=== PATIENT | female | born 1990 | race Caucasian/White ===

== ENCOUNTER → 2017-10-03 13:10 | Outpatient (CLI) | payer OTHER, SELFPAY ==
--- NOTE | 2017-10-03 13:14 | RAD_ITS ---
STUDY: X-RAY - LEFT KNEE REASON FOR EXAM: Female, 27 years old. History patellar dislocation TECHNIQUE: 4 view(s) of the knee. COMPARISON: None. FINDINGS: Normal visualized distal femur. Normal visualized proximal tibia and fibula. Normal proximal tibiofibular articulation. Normal medial femorotibial compartment. Normal lateral femorotibial compartment. Normal patellofemoral articulation. The soft tissue structures are unremarkable. RAD/Knee 4 or More Views IMPRESSION: No fracture or dislocation. Electronically Signed: Jose Page DO at 20:13 EDT , Service support ,
== END ==
PROVIDERS: Family Provider Nurse Practitioner Family; PCP Nurse Practitioner Family; Visit Provider Orthopaedic Surgery
DX: M25.562 Pain in left knee (principal)
CPT/HCPCS: 73564

== ENCOUNTER 2017-10-11 07:18 | Day surgery (SDC) | payer MEDICAID, SELFPAY ==
[2017-10-11] VITALS (8 sets, daily range): BP systolic 109–139; BP diastolic 65–85; PULSE 73–95; RESP 16–18; TEMP 36–36.4; O2SAT 93–100; BMI 44.6
--- NOTE | 2017-10-11 06:58 | RAD_ITS ---
STUDY: X-RAY - LEFT KNEE REASON FOR EXAM: Female, 27 years old. Arthroscopy. TECHNIQUE: AP and lateral view(s) of the knee. COMPARISON: Comparison is made with prior study dated October 03, 2017. FINDINGS: Normal visualized distal femur. Normal visualized proximal tibia and fibula. Normal proximal tibiofibular articulation. Normal medial femorotibial compartment. Normal lateral femorotibial compartment. Normal patellofemoral articulation. Soft tissue emphysema overlying the medial distal femur. RAD/Knee 1 or 2 Views IMPRESSION: Soft tissue emphysema overlying the medial aspect of the distal femur. Electronically Signed: Alex Motta MD at 15:31 EDT Tel [phone], Service support ,
[2017-10-11 07:47] LABS: Internal QC Validated? YES +Cl - CLEAR BKGD; Pregnancy, Urine Negative Negative
[2017-10-11] MEDS: Cefazolin 2 GM in 0.9% Normal Saline 100 ML IV (10:10)
--- NOTE | 2017-10-11 11:33 | PCM.IMDPSTOP ---
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
--- NOTE | 2017-10-11 11:44 | OP.PCM_ITS ---
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 Noted to my clinic with again recurrent patella instability. MRI should the patient have chondromalacia patella some mild patella jacek no obvious patella trochlear dysplasia with sunrise view of the kneecap however the patient had positive apprehension and relocation of the patella maneuvers. Her TT/TTG was measured at 8 mm. This was well within normal limits. Patient was counseled consented for a left knee arthroscopy a medial patellofemoral ligament reconstruction with possible open tibial tubercle osteotomy or any indicated procedure. Patient was met in the holding area with a left lower extremity was marked and identified by the with surgeon. Patient was taken the operating room in satisfactory condition with somewhat to place to identify patient operative procedure and limb. Patient received 2 g Ancef. Patient a well-placed tourniquet left proximal thigh. She was then prepped and draped in usual fashion. Left lower extremity was elevated Esmarch used for exsanguination and tourniquet was increased to 250 mmHg for roughly 75 minutes. During the knee arthroscopy a posterior tibialis allograft was repaired to the back table with split limbs in anticipation of placement into the patella and an 8 mm overall distal diameter using the Arthrex MPFL system. Was done using standard technique and placed in longitudinal traction during the remaining portion of the procedure. Left lower extremity was elevated Esmarch used for exsanguination and tourniquet was increased to 250 mmHg for roughly 75 minutes. Anterolateral portal was established and we entered into the suprasellar pouch. Patient had no return of an effusion. Patient did have some small chondral flakes floating around the knee globally but no large loose bodies were identified. He can be seen the patient had lateral overhang of the patella and full extension. She showed grade III chondromalacia to the central ridge and medial patellar facets with changes proximally. However the lateral patellar facet and central ridge lateral half were pristine. Patient had no chondromalacia to the trochlea. Patient had no loose bodies the to the posterior lateral corner. The popliteal hiatus was normal. We then moved in the medial compartment established anteromedial portal. Anterior synovectomy was undertaken for better visualization. Medial compartment showed the cartilage be pristine. She had no meniscal pathology upon probing. The patient showed a normal flanked sign to the meniscus as well. ACL and PCL were pristine and under anatomic tension. Patient's leg was then placed in the figure 4 position. Patient had a large fissure into the lateral tibial plateau that was probably 3 mm in overall thickness however the remaining cartilage bed was intact. The patient had no signs of a lateral meniscal pathology. The popliteus was normal. Patient showed no chondromalacia to the lateral femoral condyle. At that point time I elected to perform a lateral release using the vapor cautery device moving from the insertional site of the vastus lateralis down distally to roughly near the anterolateral portal. This was done using standard technique with caution not to burn the skin. Patient had improved patella mobility at that point time. At that point the scope was retracted we turned our attention to the open portion the procedure. Patient had a 2-1/2 cm incision made along the medial border of the patella with sharp dissection down to soft tissues Bovie cautery 20 bleeding. Subperiosteal dissection was undertaken with the capsular reflection being protected. Then using C-arm visualization in the AP and lateral planes we placed to K wires in parallel fashion using standard technique within the proximal one third middle distal third of the patella. Overall tunnel lengths roughly 25 mm measuring 4.5 mm in overall diameter. At that point time the graft had been prepared and brought from the back table. Each limb of the split posterior tibialis was then dunked into its respective tunnel and fixed with a 4.75 bio composite Arthrex swivel lock using standard technique. We had excellent compression and good stability with manual medialization of the patella. At that point time we then undermined and moving along the capsule down to the anatomic insertion site of the medial patellofemoral ligament. Using C-arm visualization the lateral plane with the knee and roughly 30? of knee flexion the radiographic marker was used in order to identify the anatomic insertion site using a perfect lateral technique. At that point time the guidewire was passed percutaneously through the skin found to be in good anatomic position. We then made a 2 cm incision longitudinally and dissected down to the medial upper condyle of the the knee using standard technique. We then connected the 2 incision sites and undermining technique to allow for passage of the graft. The guidewire was passed all the way across the condyle in anticipation of a a pull-through technique. We then overreamed with an 8.5 mm reamer and then dunked the remaining portion of the posterior tibialis into the tunnel over a Nitinol guidewire with a 9 mm x 23 mm bio composite screw again from Arthrex. During this time. Of fixation the patella was centralized wide again was in roughly 30-45? of knee flexion and then fixed accordingly. Upon completion of our fixation since patella was well centralized. At 30? knee flexion she had one compartment translation laterally. She did not feel over constrained. In full extension the patient also maintained a 1-1.5 mm lateral compartment translation. We then placed the scope back into the knee joint from the lateral portal to visualize in the knee with in 30? knee flexion again it was anatomic and overall positioning. We then copiously irrigated the wounds closed in a layer technique the portal sites were closed with 4-0 nylon using simple suture technique. The medial incisions for the ligament reconstruction were closed with 3-0 Vicryl and running subicular Monocryl. Patient was then dressed in the usual fashion with Xeroform 4 x 4's Kerlix roll ABD Rui wrap. Tourniquet let down during final closure. I was scrubbed and available time during our procedure. We had no drains or complications. Implants included 2 4.75 mm swivel locks from Arthrex and one 9 x 23 mm bio composite interference screw again from Arthrex. Patient will follow the NPFL protocol. Any major issues please contact me. travel accommodations rater: David Irwin Type of Anesthesia:: General Specimen's removed: None Estimated Blood Loss (mL): 20 Grafts/Implants Used: Posterior tibialis allograft, 2 4.75 mm swivel locks from Arthrex, 1 9 x 23 - Complications None - Admit VTE Documentation VTE Present on Admission: No VTE Mechan Device Prophylaxis: SCD's, Knee High KITA Hose VTE Pharm Prophylaxis ordered?: Yes
--- NOTE | 2017-10-11 11:45 | PCM.DC.ORTHO ---
Discharge Activity: Return to Normal Activity, May not drive while taking narcotic pain medications., May Shower, Use Crutches May shower in (days): 2 May resume sexual activity in: 8 weeks Ice area for (Minutes): 20 Weight Bearing Status: Weight bearing as tolerated, - - Weightbearing as tolerated in full extension. Keep extremity elevated above heart level: Left Leg Additional Activity Instructions:: Perform straight leg raises in brace. Perform quad sets in brace. May been needs a 30? 3 times per day only ?2 weeks. We will advance accordingly. Brace 24 7 except for shower. Call your doctor if your incision/area has: Continuous Slow Oozing, Sudden Increased Bleeding, Increased Pain/ Swelling, Increased Redness, Foul Smelling Discharge, Swelling at the incision site Call your doctor if you observe: Fever of 101 or Higher, Coldness, Increased Pain, Numbness or Tingling, Change in Color, Inability to urinate, Inability to have a bowel movement, Using more than one pad per hour, Shortness of breath, Dizziness, Fainting spells, Swelling in the ankles, Chest pain, Prolonged hiccoughing, Increased palpitations (irregular heartbeat), Calf discomfort, Uncontrolled pain Suture Line Care: Avoid Pulling/Pushing, Avoid Pinching/Bending Change Dressing in (Days):: 2 Remove Dressing in (days):: 2 Cleanse incision/area with: Soap & Water Allergies/Adverse Reactions: Allergies No Known Allergies Allergy (Unverified 10/10/17 14:53) Medications to take at Discharge acetaminophen 325 mg capsule 325 mg PO Q6H PRN 10/03/17 ibuprofen 200 mg capsule 200 mg PO TID-QID PRN 10/03/17 Cephalexin [Keflex] 500 mg PO Q12 #10 cap 10/11/17 Docusate Sodium [Colace] 100 mg PO BID PRN PRN #10 cap 10/11/17 Oxycodone HCl/Acetaminophen [Percocet 5/325] 1 - 2 tablet PO Q4H PRN PRN #60 tablet 10/11/17 proMETHazine tablet [Phenergan] 25 mg PO Q4H PRN PRN #10 tab 10/11/17 The following prescriptions were given: Oxycodone HCl/Acetaminophen [Percocet 5/325] 1 - 2 tablet PO Q4H PRN PRN #60 tablet PRN Reason: Pain proMETHazine tablet [Phenergan] 25 mg PO Q4H PRN PRN #10 tab PRN Reason: Nausea Cephalexin [Keflex] 500 mg PO Q12 #10 cap Docusate Sodium [Colace] 100 mg PO BID PRN PRN #10 cap PRN Reason: Constipation Primary Care Physician: Maruim Townsend NP-C [Primary Care Provider] - Please Follow Up With: Ranjan Hastings DO When: call [facility] for appt for 2 weeks Proposed Discharge Date: 10/11/17
[2017-10-11] MEDS: Ondansetron 4 MG/2 ML Vial IV (13:03)
[2017-10-11] MEDS: HYDROcodone Bitartrate/Apap 5/325 Tablet PO (14:19)
== END 2017-10-11 15:18 | disposition home or self-care (01) ==
LOC: SDC 07:19 → AC 07:20
PROVIDERS: Anesthesiology; Family Provider Nurse Practitioner Family; PCP Nurse Practitioner Family; Visit Provider Orthopaedic Surgery
PROC: (CPT 27427; principal; 2017-10-11 09:05)
DX: M22.02 Recurrent dislocation of patella, left knee (principal); M94.262 Chondromalacia, left knee; G89.29 Other chronic pain
CPT/HCPCS: 27427; 29873; 73560; 76000; 81025; J7120; J2405

== ENCOUNTER → 2018-02-23 09:19 | Outpatient (CLI) | payer MEDICAID, SELFPAY ==
--- NOTE | 2018-02-23 09:21 | RAD_ITS ---
STUDY: X-RAY - LEFT KNEE REASON FOR EXAM: Female, 27 years old. History of NPFL surgery several weeks ago, knee locked up. TECHNIQUE: 4 view(s) of the knee. COMPARISON: 10/11/2017. 10/03/2017. FINDINGS: Transverse osseous tunnel medial femoral condyle and superior and mid patella without change. Tiny spur along the medial femoral notch. Normal visualized proximal tibia and fibula. Normal proximal tibiofibular articulation. Normal medial femorotibial compartment. Normal lateral femorotibial compartment. Normal patellofemoral articulation. There is no demonstrated joint effusion. Stable cortical irregularity medial patella pole. The soft tissue structures are unremarkable. RAD/Knee 4 or More Views IMPRESSION: Postsurgical changes. No effusion. Electronically Signed: Mary Basilio MD at 5:26 EDT , Service support ,
== END ==
PROVIDERS: Family Provider Nurse Practitioner Family; PCP Nurse Practitioner Family; Referring Provider Physician Assistant; Visit Provider Physician Assistant
DX: M25.562 Pain in left knee (principal)
CPT/HCPCS: 73564

== ENCOUNTER → 2018-09-01 09:26 | Outpatient (CLI) | payer MEDICAID, SELFPAY ==
[2018-09-01 11:21] LABS: Follicle Stimulating Hormone 6.2 mIU/mL; Glucose 86 mg/dL (74-106); Luteinizing Hormone 3.7 mIU/mL; Prolactin 8.2 ng/mL
[2018-09-01 11:37] LABS: Hemoglobin A1c 6.2 % (4.2-6.3)
== END ==
PROVIDERS: Visit Provider Obstetrics & Gynecology
DX: N92.0 Excessive and frequent menstruation with regular cycle (principal); N94.4 Primary dysmenorrhea
CPT/HCPCS: 36415; 82947; 83001; 83002; 83036; 84146

== ENCOUNTER 2019-03-16 21:16 | Emergency (ER) | payer OTHER, SELFPAY ==
[2019-03-16 21:17] VITALS: BP 125/81; PULSE 89; RESP 14; TEMP 37.2; O2SAT 95; BMI 40.7
--- NOTE | 2019-03-16 21:20 | RAD_ITS ---
STUDY: X-RAY - LEFT KNEE REASON FOR EXAM: Female, 28 years old. Patellar pain TECHNIQUE: 4 view(s) of the knee. COMPARISON: Prior study of 02/23/2018 FINDINGS: Normal visualized distal femur. Normal visualized proximal tibia and fibula. Normal proximal tibiofibular articulation. There is mild degenerative arthrosis of the medial femorotibial compartment. There is mild degenerative arthrosis of the lateral femorotibial compartment. Normal patellofemoral articulation. The soft tissue structures are unremarkable. RAD/Knee 4 or More Views IMPRESSION: Mild degenerative changes of the medial and lateral knee compartments. Electronically Signed: Jose Holman MD at 22:04 EDT , Service support ,
--- NOTE | 2019-03-16 23:19 | ED.DCSUM_ITS ---
History of Present Illness Chief Complaint: Lower Extremity Injury Detail of Chief Complaint: Left knee pain Informant: Patient Onset: Days Context: Gradual Onset Timing: Waxes and wanes Current Severity: Moderate Maximum Severity: Severe Narrative: Patient has a history of left patellar dislocations. She had knee surgery a couple years ago with Dr. Hastings. Patient states that over the past 3 days her left patella has dislocated 2 additional times. She now has grinding pain under her patella with pain shooting down her leg. She could not find her straight leg brace. She does have crutches at home that she can use. She has an appointment to see orthopedics next week. Past Medical History - Allergies and Home Meds Allergies/Adverse Reactions: Allergies No Known Allergies Allergy (Verified 03/16/19 21:17) Primary Care Physician: Marium Townsend NP-C [Primary Care Provider] - Prior records reviewed: Yes Past Medical History: - - Reviewed Lives: Spouse/ Significant Other Smoking Status: Never smoker Review of Systems General: Denies: Chills, Fever Eyes: Denies: Visual changes - bilaterally ENT: Denies: Bilateral ear pain Cardiovascular: Denies: Chest pain Respiratory: Denies: Dyspnea Gastrointestinal: Denies: Abdominal pain Musculoskeletal: Reports: Extremity Pain Skin: Denies: Rash Neurological: Denies: Headache, Weakness, Parasthesia Hematologic: Denies: Easy bruising Allergy: Denies: Uticaria Physical Exam Vital Signs/Narrative: Vital Signs Temp Pulse Resp BP Pulse Ox 03/16/19 21:17 98.9 F 89 14 125/81 H 95 Inital Vital Signs reviewed: Yes General: Well nourished, Well developed Head: Normocephalic ENT: Moist mucous membranes Neck: Supple Cardiovascular: Regular rate, Regular rhythm Respiratory: No distress, CTA bilaterally Abdomen: Soft, Nontender Extremities: - - Diffuse tenderness around the left knee. No significant edema or effusion noted. Patient is able to straight leg raise her foot off the bed. Decreased range of motion secondary to pain. No laxity appreciated. Skin: Normal color Neurological: Alert, Oriented x3 Psychological: Normal affect Diagnostic/Tx/Re-eval Impressions Knee X-Ray 03/16/19 21:20 IMPRESSION: Mild degenerative changes of the medial and lateral knee compartments. Electronically Signed: Jose Holman MD at 22:04 EDT , Service support , 03/16/19 21:20 Xray Knee [Knee 4 or More Views] [RAD] Stat - Medical Decision Making Patient took Aleve prior to arrival. She will be given 1 tab of [place] here. Knee x-rays reveal mild arthritic changes. She will be placed in a knee immobilizer and will follow up with orthopedics next week as scheduled. She will be given a work note for restricted duty. ED Disposition - Plan for ED Patient: Disposition: Home or Assisted Living Diagnosis: Left knee sprain Instructions: Knee Sprain Prescriptions: Naproxen [Naprosyn] 500 mg PO BID PRN PRN #20 tablet PRN Reason: Pain Score 1-10/10 Hydrocodone Bitart/Apap 5-325 [[place] 5MG-325MG] 1 tablet PO Q6H PRN PRN 3 Days #10 tablet PRN Reason: Pain Referrals: Marium Townsend NP-C [Primary Care Provider] - Nai Mckinnon DO [STAFF PHYSICIAN] - Keep Ori appointment
[2019-03-16] MEDS: HYDROcodone Bitartrate/Apap 5/325 Tablet PO (23:37)
[2019-03-16 23:46] VITALS: BP 117/75; PULSE 73; RESP 18; O2SAT 99
== END 2019-03-17 | disposition home or self-care (01) ==
LOC: ED 23:51
PROVIDERS: Emergency Provider Emergency Medicine; Family Provider Nurse Practitioner Family; PCP Nurse Practitioner Family
DX: S83.92XA Sprain of unspecified site of left knee, initial encounter (principal); X58.XXXA Exposure to other specified factors, initial encounter; Y93.9 Activity, unspecified; Y92.9 Unspecified place or not applicable; Y99.9 Unspecified external cause status
CPT/HCPCS: 73564; 99283

== ENCOUNTER → 2019-03-27 06:36 | Outpatient (CLI) | payer OTHER, SELFPAY ==
[2019-03-19 14:20] VITALS: BMI 40.7
--- NOTE | 2019-03-27 06:40 | MRI_ITS ---
STUDY: MRI LEFT KNEE REASON FOR EXAM: Female, 28 years old. Internal derangement. Prior surgery. Prior patellar dislocation. TECHNIQUE: Standardized fat and water weighted pulse sequences were obtained in all 3 orthogonal planes. COMPARISON: X-ray March 16, 2018. FINDINGS: There are postoperative changes with tracks from hardware in the medial femoral condyle and medial patella. There is edema of the lateral patella, series 2 image 05/21. Normal medial meniscus. Normal hyaline cartilage of the medial femorotibial compartment. There is mild osteoarthritic spur formation of the medial knee compartment. Normal medial collateral ligamentous complex (MCL). Normal distal semimembranosus, gracilis and semitendinosus tendons. Normal lateral meniscus. Normal hyaline cartilage of the lateral femorotibial compartment. There is mild osteoarthritic spur formation of the lateral knee compartment. Normal proximal tibiofibular articulation. Normal lateral collateral (fibular) ligament. Normal popliteus tendon. Normal biceps femoris tendon. Normal anterior cruciate ligament (ACL). Normal posterior cruciate ligament (PCL). There is arthrosis of the patellofemoral articulation. There is mild spurring. Normal hyaline cartilage of the patellofemoral compartment. There is postoperative change at the medial patellofemoral ligament and medial patellar retinaculum. Normal quadriceps tendon. Normal patellar tendon. Normal Hoffa's fat pad. There is a small volume joint effusion. The soft tissues are unremarkable. The otherwise visualized osseous structures are unremarkable. MRI/Lower Ext Joint Only (Routine) IMPRESSION: Postoperative change. Mild edema with bone bruise or stress injury in the inferior patella. Degenerative change. Electronically Signed: Zachary Arce MD at 8:57 EST , Service support ,
== END ==
PROVIDERS: Family Provider Nurse Practitioner Family; PCP Nurse Practitioner Family; Referring Provider Physician Assistant; Visit Provider Physician Assistant
DX: M25.362 Other instability, left knee (principal); M25.562 Pain in left knee
CPT/HCPCS: 73721

== ENCOUNTER 2019-07-09 10:09 | Emergency (ER) | payer SELFPAY ==
[2019-04-03 14:47] VITALS: BMI 40.7
[2019-07-09 10:11] VITALS: BP 160/82; PULSE 111; RESP 17; TEMP 36.5; O2SAT 97; BMI 43.9
--- NOTE | 2019-07-09 10:21 | CT_ITS ---
STUDY: CT ABDOMEN AND PELVIS WITHOUT CONTRAST REASON FOR EXAM: Female, 28 years old. KIDNEY STONE, RIGHT FLANK PAIN. RADIATION DOSAGE (If Supplied By Facility): CTDIvol = ( 22.92 ) mGy, DLP = ( 1168.38 ) mGycm TECHNIQUE: Transaxial images were obtained from the dome of the diaphragm to the symphysis pubis without oral contrast, and without intravenous contrast. Sagittal and coronal images were reconstructed. Individualized dose optimization techniques were used for this CT. COMPARISON: None. FINDINGS: The visualized lung bases are unremarkable. The visualized portions of the heart are within normal limits. There is decreased attenuation of the liver consistent with steatosis. And suspect tiny gallstones within the gallbladder lumen. Normal spleen. Normal pancreas. Normal bilateral adrenal glands. There is a 2 mm calculus at the right ureterovesical junction. Normal left kidney. Normal visualized stomach. Normal small intestine. Normal colon. The appendix is visualized and appears normal. Small lymph nodes are seen in the mesenteric fat in the right lower quadrant. This is suggestive of mesenteric lymphadenitis. Normal abdominal aorta. Normal inferior vena cava. Normal retroperitoneum. Normal urinary bladder. There is evidence of a 2.4 cm x 2.6 cm cyst in the left ovary. There is a small umbilical hernia containing fat. Straightening of the normal lumbar lordosis. CT/Abdomen/Pelvis without Cont IMPRESSION: I suspect a 2 mm calculus at the right ureterovesical junction. Findings suggestive of a tiny gallstones. Electronically Signed: Alex Motta, at 11:14 EST , Service support ,
--- NOTE | 2019-07-09 10:22 | ED.DCSUM_ITS ---
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 Negative for: Vomiting Onset: Yesterday - Diarrhea/Melena/Hematochezia GI Symptom: Negative for: Diarrhea, Melena, Hematochezia Associated Symptoms: Negative for: Dysuria, Frequency, Hematuria, Urgency Narrative: Sudden onset of right pelvic/lower quadrant pain radiating around her right flank at times, pain started last night has been persistent. No migration of pain. No urinary symptoms, fevers, or vomiting. Some nausea. No hematuria grossly. Never had this before. No history of any abdominal surgeries. Denies presumed . Past Medical History - Allergies and Home Meds Allergies/Adverse Reactions: Allergies No Known Allergies Allergy (Verified 07/09/19 10:10) Primary Care Physician: Marium Townsend NP-C [Primary Care Provider] - Surgical History: - - no abd surgeries Smoking Status: Never smoker Drugs: None Review of Systems General: Denies: Chills, Fever, Sweats Eyes: Denies: Visual changes - bilaterally, Diplopia ENT: Denies: Rhinorrhea, Sore throat Cardiovascular: Denies: Chest pain, Palpitations Respiratory: Denies: Dyspnea, Cough, Dyspnea on exertion Gastrointestinal: Reports: Abdominal pain, Nausea. Denies: Vomiting, Diarrhea, Melena, Hematochezia Genitourinary: Denies: Dysuria, Hematuria, Frequency Musculoskeletal: Reports: Back pain - R flank. Denies: Extremity Pain Skin: Denies: Rash, Wounds Neurological: Denies: Headache, Weakness, Numbness Physical Exam Vital Signs/Narrative: Vital Signs Temp Pulse Resp BP Pulse Ox 07/09/19 10:11 97.7 F L 111 H 17 160/82 H 97 Inital Vital Signs reviewed: Yes General: Well nourished, Well developed, Obese, No Acute Distress Head: Normocephalic, Atraumatic Eyes: Perrl, EOMI ENT: Moist mucous membranes, No rhinorrhea Neck: Supple, Nontender Cardiovascular: Regular rate, Regular rhythm, No murmurs, Tachycardia - mild Respiratory: No distress, CTA bilaterally, Chest nontender Abdomen: Soft, Nondistended, Normal bowel sounds, Tender - distal RLQ, lower than McBurney's pt. Negative for: Guarding, Rebound tenderness, Pulsatile mass Back: Nontender, Normal Inspection. Negative for: CVA tenderness Extremities: Nontender, No edema Skin: Normal color, No rash Neurological: Alert, Oriented x3, Cranial nerves II-XII grossly intact, Normal Strength, Normal Sensation, Normal Gait Psychological: Normal affect, Normal Mood Diagnostic/Tx/Re-eval Impressions Abdomen/Pelvis CT 07/09/19 10:21 IMPRESSION: I suspect a 2 mm calculus at the right ureterovesical junction. Findings suggestive of a tiny gallstones. Electronically Signed: Alex Kalia, at 11:14 EST , Service support , 07/09/19 10:21 Abdomen/Pelvis without Cont [CT] Stat Laboratory Results 07/09/19 07/09/19 10:19 10:19 Urine Color Yellow Urine Clarity Cloudy Urine pH 5.0 Ur Specific [place] 1.025 Urine Protein 30 H Urine Glucose (UA) Normal Urine Ketones 5 H Urine Occult Blood 10 H Urine Nitrite Negative Urine Bilirubin 1 H Urine Urobilinogen 1 H Ur Leukocyte Esterase 25 H Urine RBC 0 SEEN Urine WBC 0 SEEN Ur Squamous Epith Cells 5-10 SEEN Urine Bacteria RARE Urine Mucus 2+ Urine Test Negative - Medical Decision Making CT showing a 2 mm stone at the right UVJ, consistent with her symptoms and presentation. After Toradol and Zofran she is feeling a lot better and comfortable, using her cell phone on reexamination. Urine shows no signs of infection. was negative. Expectant management is indicated at this time, given a prescription for analgesics and Zofran and follow-up if needed although with a 2 mm stone that would be unlikely. We did discuss reasons to return to the ER. ED Disposition - Plan for ED Patient: Disposition: Home or Assisted Living Diagnosis: Ureteral colic, Urolithiasis Instructions: KIDNEY STONE w/ Colic Prescriptions: Hydrocodone Bitart/Apap 5-325 [[place] 5MG-325MG] 1 tablet PO Q6H PRN PRN 3 Days #12 tablet PRN Reason: Pain Transmission Status: Sent to [facility] Ondansetron [Zofran Odt] 4 - 8 mg PO Q8H PRN PRN #15 tab PRN Reason: Nausea Transmission Status: Pending to [facility] Referrals: Marium Townsend, FRONT END DEVELOPER JAVASCRIPT HTML CSS-C [Primary Care Provider] - Aleida Call MD [STAFF PHYSICIAN] - 1 Week if not improving
[2019-07-09 10:30] LABS: Red Blood Cells-Urine 0 SEEN /hpf (0-5); White Blood Cells 0 SEEN /hpf (0-5)
[2019-07-09 10:33] LABS: Color, Urine Yellow (Yellow); Glucose, Dipstick Normal (Normal); Ketone-Dipstick 5 mg/dl (Negative); Leukocyte Esterase-Dipstick 25 /ul (Negative); Nitrite-Dipstick Negative (Negative); Occult Blood-Urine 10 /ul (Negative); Protein-Dipstick 30 mg/dl (Negative); Specific Gravity, Urine 1.025 (1.002-1.030); Urine Clarity Cloudy (Clear); Urine Urobilinogen 1 mg/dl (Normal)
[2019-07-09 10:36] LABS: Urine Bilirubin Dipstick 1 mg/dL (Negative)
[2019-07-09] MEDS: Ketorolac 30 MG/ML Syringe IV (10:44)
[2019-07-09] MEDS: Ondansetron 4 MG/2 ML Vial IV (10:44)
[2019-07-09 10:45] LABS: Mucous, Urine 2+ /hpf (<or=2+); Squamous Epithelial Cells - UA 5-10 SEEN /hpf (5-10)
[2019-07-09 10:46] LABS: Bacteria RARE /hpf (None Seen)
[2019-07-09 10:52] LABS: Internal QC Validated? YES +Cl - CLEAR BKGD; Pregnancy, Urine Negative Negative
[2019-07-09 12:23] VITALS: BP 134/66; PULSE 72; RESP 15; O2SAT 97
== END 2019-07-09 12:24 | disposition home or self-care (01) ==
PROVIDERS: Emergency Provider Emergency Medicine; PCP Nurse Practitioner Family
DX: N20.1 Calculus of ureter (principal); E66.9 Obesity, unspecified; Z68.41 Body mass index [BMI] 40.0-44.9, adult
CPT/HCPCS: 74176; 81001; 81025; 96374; 96375; 99283; A4216; J2405

== ENCOUNTER 2019-07-10 22:19 | Emergency (ER) | payer SELFPAY ==
[2019-07-09 10:11] VITALS: BMI 43.9
[2019-07-10 22:19] VITALS: BP 125/89; PULSE 81; RESP 18; TEMP 36.8; O2SAT 97; BMI 44.5
[2019-07-11 00:35] LABS: Bacteria 0 SEEN /hpf (None Seen); Mucous, Urine 0 SEEN /hpf (<or=2+)
[2019-07-11 00:41] LABS: Color, Urine Yellow (Yellow); Glucose, Dipstick Normal (Normal); Ketone-Dipstick Negative (Negative); Leukocyte Esterase-Dipstick Negative /ul (Negative); Nitrite-Dipstick Negative (Negative); Occult Blood-Urine Negative /ul (Negative); Protein-Dipstick Negative (Negative); Urine Bilirubin Dipstick Negative (Negative); Urine Clarity Clear (Clear); Urine Urobilinogen Normal (Normal)
[2019-07-11 00:50] VITALS: BP 137/74; PULSE 58; RESP 16; O2SAT 98
[2019-07-11 00:51] LABS: Red Blood Cells-Urine 5-10 SEEN /hpf (0-5); Squamous Epithelial Cells - UA 5-10 SEEN /hpf (5-10); White Blood Cells 5-10 SEEN /hpf (0-5)
[2019-07-11 00:56] LABS: Internal QC Validated? YES +Cl - CLEAR BKGD; Pregnancy, Serum, hCG Quali. NEGATIVE Negative
[2019-07-11] MEDS: Ketorolac 15 MG/ML Vial IV (01:18)
[2019-07-11] MEDS: Ondansetron 4 MG/2 ML Vial IV (01:18)
[2019-07-11] MEDS: 0.9% Normal Saline 1,000 ML 999 ML IV (01:18)
[2019-07-11] MEDS: Morphine 4 MG/ML Syringe IV (01:18)
[2019-07-11 02:27] VITALS: BP 124/65; PULSE 76; RESP 16; O2SAT 98
--- NOTE | 2019-07-11 04:09 | ED.DCSUM_ITS ---
History of Present Illness Chief Complaint: Flank Pain Informant: Patient Onset: Yesterday Context: Gradual Onset Timing: Intermittent, Waxes and wanes Narrative: Patient is a 28-year-old female with recent diagnosis of kidney stone presenting with worsening right flank pain. Patient states it is in her right groin and radiates into her back and down her leg. She developed vomiting associated with it tonight which she described as dry heaves. Patient was seen yesterday and had a CT scan that showed a 2 mm stone at the right UVJ. She was discharged home with a prescription for Zofran and Leisenring but said she could not afford it so she never took it. She did take Naprosyn at home with minimal relief but it did help her feel more comfortable. Patient denies any hematuria or dysuria. States her symptoms initially started 3 days ago. She denies any abnormal vaginal discharge or bleeding. She denies any other complaints at this time. Past Medical History - Allergies and Home Meds Allergies/Adverse Reactions: Allergies No Known Allergies Allergy (Verified 07/09/19 10:10) Primary Care Physician: Marium Townsend NP-C [Primary Care Provider] - Past Medical History: - - Prediabetes Surgical History: no surgical history, noncontributory, - - no abd surgeries Lives: Spouse/ Significant Other, With Family Smoking Status: Never smoker Review of Systems General: Denies: Chills, Fever, Sweats Eyes: Denies: Visual changes - bilaterally, Diplopia ENT: Denies: Rhinorrhea, Sore throat Cardiovascular: Denies: Chest pain, Palpitations Respiratory: Denies: Dyspnea, Cough, Dyspnea on exertion Gastrointestinal: Reports: Abdominal pain, Nausea, Vomiting - Dry heaves. Denies: Diarrhea, Melena, Hematochezia Genitourinary: Denies: Dysuria, Hematuria, Frequency Musculoskeletal: Denies: Back pain, Extremity Pain Skin: Denies: Rash, Wounds Neurological: Denies: Headache, Weakness, Numbness Physical Exam Vital Signs/Narrative: Vital Signs Pulse Resp BP Pulse Ox 07/11/19 02:27 76 16 124/65 H 98 07/11/19 00:50 58 L 16 137/74 H 98 Inital Vital Signs reviewed: Yes General: Well nourished, Well developed, Obese, No Acute Distress Head: Normocephalic, Atraumatic Eyes: Perrl, EOMI ENT: Moist mucous membranes, No rhinorrhea Neck: Supple, Nontender Cardiovascular: Regular rate, Regular rhythm, No murmurs Respiratory: No distress, CTA bilaterally, Chest nontender Abdomen: Soft, Nontender, Nondistended, Normal bowel sounds. Negative for: Guarding, Rebound tenderness Back: Nontender, Normal Inspection. Negative for: CVA tenderness, Spinal tenderness Extremities: Nontender, No edema Skin: Normal color, No rash Neurological: Alert, Oriented x3, Cranial nerves II-XII grossly intact, Normal Strength, Normal Sensation Psychological: Normal affect, Normal Mood Diagnostic/Tx/Re-eval Laboratory Data 07/11/19 07/11/19 00:27 00:27 Serum , Qual NEGATIVE Urine Color Yellow Urine Clarity Clear Urine pH 5.0 Ur Specific [place] 1.020 Urine Protein Negative Urine Glucose (UA) Normal Urine Ketones Negative Urine Occult Blood Negative Urine Nitrite Negative Urine Bilirubin Negative Urine Urobilinogen Normal Ur Leukocyte Esterase Negative Urine RBC 5-10 SEEN Urine WBC 5-10 SEEN Ur Squamous Epith Cells 5-10 SEEN Urine Bacteria 0 SEEN Urine Mucus 0 SEEN - Medical Decision Making Patient is evaluated for recurrent right flank pain. She was diagnosed with kidney stone yesterday. Patient was unable to afford her pain medication. She did have some relief with Naprosyn at home. Urinalysis does not show any signs of infection. As patient just had complete work-up including a BMP, CBC and CAT scan 24 hours ago I do not think a repeat is indicated. Her problem seems to be mainly symptom control. She is not have any new symptoms. Patient is treated with IV fluids, Toradol, morphine and Zofran. On reevaluation she is feeling much better. She is given a dose of oral Leisenring. Patient is given a new prescription for Zofran so she can fill at the pharmacy of her choosing pending cost. She is counseled that she cannot receive a new prescription for Leisenring since her other prescription was Bry filled in our pharmacy. It took to her whether she would like to pick it up. The stone was only 2 mm and was distal so it should pass spontaneously. Patient is counseled on signs and symptoms requiring return to the emergency room. Patient verbalizes agreement and understand this plan. Patient discharged home in stable and improved condition. ED Disposition - Plan for ED Patient: Disposition: Home or Assisted Living Diagnosis: Acute right flank pain, Renal colic on right side Instructions: KIDNEY STONE w/ Colic Prescriptions: Ondansetron HCl [Zofran] 4 mg PO Q6H PRN PRN #10 tab PRN Reason: Nausea Prescription Printed Referrals: Marium Townsend NP-C [Primary Care Provider] - Additional Instructions: A new prescription for Zofran. I suspect her symptoms are from your stone passed. I cannot legally give you a second prescription for the Leisenring because it is already been filled. Continue to take the Naprosyn as well for pain at home. Return to the emergency room with worsening symptoms.
[2019-07-11 04:21] VITALS: BP 120/65; PULSE 72; RESP 15; O2SAT 98
== END 2019-07-11 04:22 | disposition home or self-care (01) ==
PROVIDERS: Emergency Provider Emergency Medicine; PCP Nurse Practitioner Family
DX: N20.1 Calculus of ureter (principal); E66.9 Obesity, unspecified
CPT/HCPCS: 81001; 84703; 96361; 96374; 96375; 99283; J7030; A4216; J2405

== ENCOUNTER 2019-07-13 15:40 | Emergency (ER) | payer SELFPAY ==
[2019-07-13] VITALS (8 sets, daily range): BP systolic 119–158; BP diastolic 69–108; PULSE 74–117; RESP 16–22; TEMP 36.4; O2SAT 93–99; BMI 44.2
--- NOTE | 2019-07-13 16:04 | EKG12_ITS ---
Test Reason : MHC Blood Pressure : / mmHG Vent. Rate : 107 BPM Atrial Rate : 107 BPM P-R Int : 158 ms QRS Dur : 084 ms QT Int : 334 ms P-R-T Axes : 027 025 002 degrees QTc Int : 445 ms Sinus tachycardia Possible Left atrial enlargement T wave abnormality, consider inferior ischemia Abnormal ECG Confirmed by BLADIMIR CHIRINOS, YOKASTA ([id number]), proposal editor JONNY MARSHALL ([id number]) on 07/16/2019 2:08:16 PM Referred By: FAIZA Confirmed By:GABBY GARRISON MD
--- NOTE | 2019-07-13 16:05 | NURSING ---
NO OLD EKGS
[2019-07-13 16:27] LABS: Absolute Lymphocyte Count 1.69 X10^3/uL (0.83-4.51); Absolute Neutrophil Count 8.9 X10^3/uL (2.0-7.7); Basophil# 0.03 X10^3/uL; Basophil% 0.3 % (0-1); Eosinophil# 0.02 X10^3/uL; Eosinophils% 0.2 % (0-5); Hematocrit 41.2 % (37-47); Hemoglobin 13.6 g/dL (12.0-15.0); Lymphocyte # 1.69 X10^3/ul (4.0); Lymphocyte % 15.1 % (19-41); Mean Corpuscular Hgb 27.9 pg (27.0-32.0); Mean Corpuscular Volume 84.6 fL (81-99); Mean Platelet Vol. 8.7 fl (6.2-12.0); Monocyte# 0.55 X10^3/uL; Monocyte% 4.9 % (0-10); NRBC Flagged by Analyzer 0 % (0-5); Neutrophil # 8.89 X10^3/uL (2.7-7.7); Neutrophil % 79.1 % (47-70); Platelet Count 378 K/mm3 (150-450); RBC Distribution Width CV 12.8 % (11.6-14.6); RBC Distribution Width SD 39.6 fl (35.1-43.9); Red Blood Count 4.87 M/mm3 (4.2-5.4); White Blood Count 11.2 K/mm3 (4.4-11.0)
[2019-07-13 16:41] LABS: ALB/GLOB Ratio 1.1 RATIO (0.9-2.4); AST(SGOT) 16 U/L (15-37); Alanine Aminotransfer ALT/SGPT 30 U/L (13-56); Albumin, Serum 4.3 g/dL (3.2-5.0); Alkaline Phosphatase 117 U/L (45-117); Anion Gap 7 (5-15); BUN 12 mg/dL (7-18); BUN/Creat Ratio 12.2 RATIO (10-20); Calcium,Total 9.1 mg/dL (8.5-10.1); Chloride 109 mmol/L (98-107); Creatinine, Serum 0.98 mg/dL (0.55-1.02); EST Glomerular Filtration Rate 71 mL/min (>60); Est Glom Filt Rate - Afr Amer 86 mL/min (>60); Globulin 3.9 g/dL (2.2-4.2); Glucose 117 mg/dL (74-106); Potassium 3.3 mmol/L (3.5-5.1); Protein, Total 8.2 g/dL (6.4-8.2); Sodium Level 139 mmol/L (136-145)
[2019-07-13] MEDS: Ondansetron 4 MG/2 ML Vial IV (16:51)
[2019-07-13] MEDS: 0.9% Normal Saline 1,000 ML 1000 ML IV (16:51)
[2019-07-13 17:12] LABS: Internal QC Validated? YES +Cl - CLEAR BKGD; Pregnancy, Serum, hCG Quali. NEGATIVE Negative
[2019-07-13 17:15] LABS: Acetaminophen (Tylenol) Level 13.2 ug/mL (10.0-30.0); Alcohol, Blood (Medical)-Serum < 3.0 mg/dL; Salicylate < 1.7 mg/dL (2.8-20.0)
[2019-07-13 17:52] LABS: Amphetamine Urine VISTA NEGATIVE (<1000 ng/mL); Barbiturate Urine VISTA NEGATIVE (< 200 ng/mL); Benzodiazepine Urine VISTA NEGATIVE (< 200 ng/mL); Cocaine Urine VISTA NEGATIVE (< 300 ng/mL); Ecstacy Urine VISTA NEGATIVE (< 500 ng/mL); Methadone Urine VISTA NEGATIVE (< 300 ng/mL); PCP Urine VISTA NEGATIVE (< 25 ng/mL); THC Urine VISTA NEGATIVE (< 50 ng/mL); Vista UDS pH Range 6
--- NOTE | 2019-07-13 17:59 | NURSING ---
CALLED CRISIS. 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
[2019-07-13] MEDS: proMETHazine 25 MG/ML Syringe 6.25 MG IV (18:15)
--- NOTE | 2019-07-13 23:13 | ED.DCSUM_ITS ---
- ER Visit Summary Date of Service: 07/13/19 Chief Complaint: Suicidal ideation History of Present Illness: The patient is a 28 F who sees Keyla Townsend. She reports that she does have a history of depression. She has not been on medications for 1 to 2 years. She states that she recently from her . They have 4 kids together. Last night she found that 2 of the boys do not want to see her again and that her mom is taking custody of another child. She reports that today at work she was feeling very depressed and took 12 [place] and 3 naproxen 2 hours ago. She does admit that this was an attempt to kill her self. She reports that she is nauseated now. She denies any other complaints. Physical Examination: Vitals: Stable. Afebrile. General: Well-nourished and well-developed. Head: Normocephalic atraumatic. Neck: Supple, no lymphadenopathy. No JVD. Nontender. Cardiovascular: Regular rate and rhythm. No murmurs. Respiratory: No respiratory distress. Clear to auscultation bilaterally. Abdominal: Soft, nontender, nondistended, normal bowel sounds. No guarding, rebound, or peritoneal signs. Back: Nontender. Extremities: Nontender, no edema. Skin: Normal color, no rash. Neurologic: Alert and oriented ?3. Cranial nerves II through XII are intact. Normal strength and sensation. Mental status exam: Patient appears their stated age. Good posture and grooming. Good eye contact. Normal rate, volume, and latency of speech. No homicidal ideation. No auditory or visual hallucinations. Flow of thought is logical. Insight and judgment is fair. Test Results: EKG is sinus tach at [address] changes. There is T wave inversion in lead III. Normal intervals. test is negative. Aspirin is less than 1.7. Tylenol is 13.2. LFTs are normal. Chem-7 shows a potassium of 3.3, chloride of 109, glucose 117. CBC shows a white count 11.2 with 79 segs neutrophils and 15 lymphocytes. Talk screen shows opiates. Alcohol is negative. Emergency Department Course and Treatment: Patient was given Zofran and Phenergan IV. She is resting comfortably. She has not been lethargic while here. Treatment Plan: Patient was discussed with the counseling center. They are in the process of getting her transferred to [facility]. Disposition: Pending Impression: 1. Suicidal ideation. This note was generated with [employer] dictation software. It may contain incorrect words, spelling, and punctuation that were not noted in review of the chart prior to signing ED Disposition - Plan for ED Patient: Referrals: Marium Townsend, REGIONAL CLINICAL RESEARCH ASSOCIATE-C [Primary Care Provider] -
[2019-07-14] VITALS (18 sets, daily range): BP systolic 105–134; BP diastolic 61–87; PULSE 50–81; RESP 16–24; TEMP 37.1; O2SAT 93–99
--- NOTE | 2019-07-14 05:37 | ED.RN ---
patient case is being reviewed by [facility] at this time she is currently 3 in line
--- NOTE | 2019-07-14 07:50 | ED.RN ---
AJAY WITH CRISIS DR IS STILL REVIEWING HER CASE, HOPEFULLY GET HER A ROOM SOMETIME THIS MORNING
--- NOTE | 2019-07-14 16:22 | ED.RN ---
EWA WITH CRISIS, PER DR AT [facility], PATIENT NEEDS TO REMAIN IN ED UNTIL TOMORROW MORNING AND BE RE-EVALUATED BY PHYSICIAN AND NOTE BY PHYSICIAN, SENT TO [facility], THAT PATIENT IS CLEARED TO BE MOVED TO [facility]
[2019-07-15] VITALS (9 sets, daily range): BP systolic 97–120; BP diastolic 49–85; PULSE 54–115; RESP 16–24; O2SAT 92–97
--- NOTE | 2019-07-15 08:57 | NURSING ---
CALLED [facility] TO ARRANGE TRANSPORT TO [facility]
--- NOTE | 2019-07-15 10:02 | ED.RN ---
REPORT TO [facility]. PT SKIN P/W/D, RESP EVEN AND UNLABORED, PT A&O X 3, NO DISTRESS NOTED.
== END 2019-07-15 10:04 ==
LOC: ED 16:39
PROVIDERS: Emergency Provider Emergency Medicine; PCP Nurse Practitioner Family
DX: T14.91XA Suicide attempt, initial encounter (principal); T40.2X2A Poisoning by other opioids, intentional self-harm, initial encounter; T39.312A Poisoning by propionic acid derivatives, intentional self-harm, initial encounter; R11.0 Nausea; Y92.9 Unspecified place or not applicable; Y93.89 Activity, other specified
CPT/HCPCS: 80053; 80307; 80320; 80329; 84703; 85025; 93005; 96361; 96374; 96375; 99285; J7030; A4216; G0480; J2405

== ENCOUNTER 2019-10-08 20:35 | Emergency (ER) | payer SELFPAY ==
[2019-07-13 15:41] VITALS: BMI 44.2
[2019-10-08 20:36] VITALS: BP 136/111; PULSE 101; RESP 24; TEMP 36.7; O2SAT 97; BMI 46.2
[2019-10-08 21:38] VITALS: BP 117/78; PULSE 68; RESP 16; TEMP 37; O2SAT 98
[2019-10-08 22:00] VITALS: BP 121/73; PULSE 71; RESP 16; TEMP 36.9; O2SAT 98
[2019-10-08 22:00] LABS: Absolute Lymphocyte Count 3.28 X10^3/uL (0.83-4.51); Absolute Neutrophil Count 7.6 X10^3/uL (2.0-7.7); Basophil# 0.04 X10^3/uL; Basophil% 0.3 % (0-1); Eosinophil# 0.33 X10^3/uL; Eosinophils% 2.7 % (0-5); Hematocrit 39.6 % (37-47); Hemoglobin 13.2 g/dL (12.0-15.0); Lymphocyte # 3.28 X10^3/ul (4.0); Lymphocyte % 27.2 % (19-41); Mean Corp Hgb Conc 33.3 g/dL (32-36); Mean Corpuscular Hgb 28.2 pg (27.0-32.0); Mean Corpuscular Volume 84.6 fL (81-99); Mean Platelet Vol. 8.8 fl (6.2-12.0); Monocyte% 6.6 % (0-10); NRBC Flagged by Analyzer 0 % (0-5); Neutrophil # 7.56 X10^3/uL (2.7-7.7); Neutrophil % 62.8 % (47-70); Platelet Count 410 K/mm3 (150-450); RBC Distribution Width CV 12.8 % (11.6-14.6); Red Blood Count 4.68 M/mm3 (4.2-5.4); White Blood Count 12.1 K/mm3 (4.4-11.0)
[2019-10-08 22:06] LABS: Anion Gap 3 (5-15); BUN 9 mg/dL (7-18); BUN/Creat Ratio 10.9 RATIO (10-20); CPK Total, Creatine Kinase 66 U/L (26-192); Calcium,Total 9.3 mg/dL (8.5-10.1); Chloride 110 mmol/L (98-107); Creatinine, Serum 0.82 mg/dL (0.55-1.02); EST Glomerular Filtration Rate 87 mL/min (>60); Est Glom Filt Rate - Afr Amer 106 mL/min (>60); Estimated Creatinine Clearance 83.74 ml/min; Glucose 109 mg/dL (74-106); Potassium 3.5 mmol/L (3.5-5.1); Sodium Level 142 mmol/L (136-145)
--- NOTE | 2019-10-08 22:06 | RAD_ITS ---
STUDY: X-RAY CHEST REASON FOR EXAM: Female, 29 years old. CHILLS WITH LEFT SIDE BODY ACHES TECHNIQUE: Single AP portable view of the chest. COMPARISON: None. FINDINGS: The lungs are clear and expanded. There is no demonstrated pleural abnormality. Normal size heart. Normal mediastinum and kristine. Normal visualized pulmonary arteries. Normal visualized aortic arch and descending thoracic aorta. Normal visualized thoracic spine. Normal visualized ribs, clavicles, and shoulders. There is no demonstrated abnormality of the visualized soft tissue structures of the upper abdomen. RAD/Chest 1 View (Portable) IMPRESSION: Normal x-ray examination of the chest. Electronically Signed: Chino Redmond MD at 22:17 EDT , Service support ,
[2019-10-08] MEDS: Ondansetron 4 MG/2 ML Vial IV (22:13)
[2019-10-08] MEDS: Morphine 4 MG/ML Syringe IV (22:13)
[2019-10-08 22:35] VITALS: O2SAT 98
[2019-10-08 22:57] VITALS: BP 129/93; PULSE 72; RESP 17; O2SAT 98
[2019-10-08 23:00] VITALS: BP 118/72; PULSE 70; RESP 18; TEMP 36.9; O2SAT 97
--- NOTE | 2019-10-09 00:03 | ED.VISSUMM ---
- ER Visit Summary Date of Service: 10/09/19 Chief Complaint: Left upper and lower extremity pain History of Present Illness: The patient is a 29 F presenting with left upper extremity pain and left lower extremity pain. Patient states she started having pain in her left hand yesterday. It then progressed to pain in her whole arm. Later in the evening she started having pain in her left leg. She denies chest pain. She denies weakness. Denies vision changes, speech changes, dizziness, headache, confusion. No bowel or bladder incontinence. She states when the pain was severe she started feeling short of breath. She denies fever or cough. Denies recent trauma. Denies other complaints. Physical Examination: Vitals are stable. Patient is afebrile. Alert no acute distress. HEENT exam is unremarkable. Neck is supple, nontender Lungs are clear and equal bilaterally. Heart is regular rate and rhythm. Abdomen is soft nontender nondistended. Extremities diffuse tenderness left upper and lower extremity. Pain with active full range of motion. No erythema or warmth. Neurovascularly intact distally. Skin is warm and dry. No focal neurologic deficit. Normal strength and sensation Remainder of exam is unremarkable. Emergency Department Course and Treatment: CBC, chemistries unremarkable. CK normal. Patient was given morphine, Zofran IV. Chest x-ray shows no acute process. On reevaluation patient is resting comfortably and her pain has resolved. She continues to have normal strength and sensation in the upper and lower extremities. She is advised signs and symptoms for which to return to the ED. Advised follow-up with primary care physician. Disposition: Discharge home Impression: Left upper and lower extremity pain This note was generated with [employer] dictation software. It may contain incorrect words, spelling, and punctuation that were not noted in review of the chart prior to signing ED Disposition - Plan for ED Patient: Referrals: Marium Townsend, ABILIO-C [Primary Care Provider] -
[2019-10-09 00:04] VITALS: BP 110/52; PULSE 71; RESP 16; O2SAT 98
--- NOTE | 2019-10-09 00:10 | DCINST.ED_ITS ---
ED Disposition - Plan for ED Patient: Instructions: Muscle Spasm Referrals: Marium Townsend, PROJECT MANAGEMENT INTERN-C [Primary Care Provider] -
--- NOTE | 2019-10-09 00:10 | ED.DEP ---
ED Disposition - Plan for ED Patient: Instructions: Muscle Spasm Referrals: Marium Townsend, CLINIC BUSINESS MANAGER-C [Primary Care Provider] -
== END 2019-10-09 00:31 | disposition home or self-care (01) ==
LOC: ED 22:37
PROVIDERS: Emergency Provider Emergency Medicine; PCP Nurse Practitioner Family
DX: M79.602 Pain in left arm (principal); M79.605 Pain in left leg; F32.9 Major depressive disorder, single episode, unspecified
CPT/HCPCS: 71045; 80048; 82550; 85025; 96374; 96375; 99283; A4216; J2405

== ENCOUNTER 2019-12-25 21:53 | Emergency (ER) | payer SELFPAY ==
[2019-12-25 21:54] VITALS: BP 139/100; PULSE 74; RESP 16; TEMP 36.7; O2SAT 96; BMI 46.2
--- NOTE | 2019-12-25 22:32 | ED.VIS.GEN ---
History of Present Illness Chief Complaint: Headache Informant: Patient Narrative: Patient is a 29-year-old previously healthy female who presents to the emergency department for headache. This started earlier today. She currently rates the pain as a 10 out of 10. It has been progressively getting worse throughout the day. She has been taking Excedrin and ibuprofen without much relief. She states that the headache is all on the right side. She is been having photophobia. No neck stiffness. No fevers or chills. Does have a history of headaches but this feels more severe than her other ones. She states that the headache started earlier in the day and then she ended up hitting her head on the toolbox which aggravated her symptoms. She denies any loss of consciousness. No vision changes. No nausea or vomiting. She denies any weakness or loss of sensation in any extremity. No chest pain or shortness of breath. No cough, cold, congestion. No abdominal pain. Sitting still with her eyes closed does seem to relieve the symptoms minorly. Past Medical History - Allergies and Home Meds Allergies/Adverse Reactions: Allergies No Known Allergies Allergy (Verified 12/25/19 22:08) Primary Care Physician: Marium Townsend NP-C [Primary Care Provider] - 2 Days Prior records reviewed: Yes Past Medical History: None Surgical History: no surgical history, noncontributory, - - no abd surgeries Smoking Status: Never smoker Alcohol: None Drugs: None Review of Systems All systems negative except as indicated General: Denies: Chills, Fever, Sweats Eyes: Denies: Visual changes - bilaterally, Diplopia ENT: Denies: Rhinorrhea, Sore throat Cardiovascular: Denies: Chest pain, Palpitations Respiratory: Denies: Dyspnea, Cough, Dyspnea on exertion Gastrointestinal: Denies: Abdominal pain, Nausea, Vomiting, Diarrhea Genitourinary: Denies: Dysuria, Hematuria, Frequency Musculoskeletal: Denies: Back pain, Extremity Pain Skin: Denies: Rash, Wounds Neurological: Reports: Headache. Denies: Weakness, Numbness Physical Exam Vital Signs/Narrative: Vital Signs Temp Pulse Resp BP Pulse Ox 12/25/19 21:54 98.1 F 74 16 139/100 H 96 Inital Vital Signs reviewed: Yes General: Well nourished, Well developed, No Acute Distress Head: Normocephalic, Atraumatic Eyes: Perrl, EOMI ENT: Moist mucous membranes, No rhinorrhea Neck: Supple, Nontender Cardiovascular: Regular rate, Regular rhythm, No murmurs Respiratory: No distress, CTA bilaterally, Chest nontender Abdomen: Soft, Nontender, Nondistended, Normal bowel sounds Back: Nontender, Normal Inspection Extremities: Nontender, No edema Skin: Normal color, No rash Neurological: Alert, Oriented x3, Cranial nerves II-XII grossly intact, Normal Strength, Normal Sensation Psychological: Normal affect, Normal Mood Diagnostic/Tx/Re-eval - Medical Decision Making Patient presents to the emergency department for right-sided headache. Upon arrival to the ED vital signs within normal limits. Physical exam is benign. Will treat with migraine cocktail at this time. We will hold off on CT imaging as this was not acute on onset. This started prior to the head trauma which was only minor. After treatment patient states that her symptoms have completely resolved. She does feel comfortable going home at this time. She needs to follow-up with her PCP. Warning signs and symptoms for which to return to the emergency department including any worsening symptoms, develop any focal deficits or any systemic symptoms are reviewed with her. She understands and is agreeable with this plan. Will discharge home in stable condition. ED Disposition - Plan for ED Patient: Disposition: Home or Assisted Living Diagnosis: Headache Instructions: ED Headache Unspecified Referrals: Marium Townsend NP-C [Primary Care Provider] - 2 Days
[2019-12-25] MEDS: Metoclopramide 10 MG/2 ML Vial 5 MG IV (22:33)
[2019-12-25] MEDS: DiphenhydrAMINE 50 MG/ML Syringe 25 MG IV (22:34)
[2019-12-25] MEDS: Ketorolac 30 MG/ML Syringe IV (22:35)
[2019-12-25 23:26] VITALS: BP 112/65; PULSE 60; RESP 16; O2SAT 100
== END 2019-12-25 23:28 | disposition home or self-care (01) ==
PROVIDERS: Emergency Provider Emergency Medicine; PCP Nurse Practitioner Family
DX: R51 Headache (principal)
CPT/HCPCS: 96374; 96375; 99283; J7050; A4216

== ENCOUNTER 2020-02-02 19:28 | Emergency (ER) | payer BC, SELFPAY ==
--- NOTE | 2020-02-02 | RAD_ITS ---
STUDY: X-RAY CHEST REASON FOR EXAM: Female, 29 years old. Chest pressure TECHNIQUE: Frontal view COMPARISON: 10/08/2019. FINDINGS: The lungs are not fully expanded. There is no demonstrated pleural abnormality. Normal size heart. Normal mediastinum and kristine. Normal visualized pulmonary arteries. Normal visualized aortic arch and descending thoracic aorta. Normal visualized thoracic spine. Normal visualized ribs, clavicles, and shoulders. There is no demonstrated abnormality of the visualized soft tissue structures of the upper abdomen. RAD/Chest 1 View (Portable) IMPRESSION: Normal x-ray examination of the chest. Electronically Signed: Howard Holman DO at 20:27 EDT Tel [phone], Service support ,
[2020-02-02 19:29] VITALS: BP 165/84; PULSE 84; RESP 18; TEMP 36.9; O2SAT 96; BMI 48.6
--- NOTE | 2020-02-02 19:38 | EKG12_ITS ---
Test Reason : CP Blood Pressure : / mmHG Vent. Rate : 093 BPM Atrial Rate : 093 BPM P-R Int : 160 ms QRS Dur : 084 ms QT Int : 362 ms P-R-T Axes : 032 007 008 degrees QTc Int : 450 ms Normal sinus rhythm Minimal voltage criteria for LVH, may be normal variant Borderline ECG Confirmed by OC CHIRINOS, NATALIE ([id number]), editorial assistant JONNY MARSHALL ([id number]) on 02/06/2020 11:33:16 AM Referred By: KRISTIN/JUAN C Confirmed By:NATALIE RENAE MD
[2020-02-02 19:48] VITALS: O2SAT 100
[2020-02-02 19:51] LABS: Absolute Lymphocyte Count 3.05 X10^3/uL (0.83-4.51); Absolute Neutrophil Count 7.2 X10^3/uL (2.0-7.7); Basophil# 0.03 X10^3/uL; Basophil% 0.3 % (0-1); Eosinophil# 0.19 X10^3/uL; Eosinophils% 1.7 % (0-5); Hematocrit 41.2 % (37-47); Hemoglobin 13.7 g/dL (12.0-15.0); Lymphocyte # 3.05 X10^3/ul (4.0); Lymphocyte % 26.8 % (19-41); Mean Corp Hgb Conc 33.3 g/dL (32-36); Mean Corpuscular Hgb 27.7 pg (27.0-32.0); Mean Corpuscular Volume 83.4 fL (81-99); Mean Platelet Vol. 8.6 fl (6.2-12.0); Monocyte# 0.92 X10^3/uL; Monocyte% 8.1 % (0-10); NRBC Flagged by Analyzer 0 % (0-5); Neutrophil # 7.16 X10^3/uL (2.7-7.7); Neutrophil % 62.7 % (47-70); Platelet Count 419 K/mm3 (150-450); RBC Distribution Width CV 12.7 % (11.6-14.6); RBC Distribution Width SD 38.1 fl (35.1-43.9); Red Blood Count 4.94 M/mm3 (4.2-5.4); White Blood Count 11.4 K/mm3 (4.4-11.0)
--- NOTE | 2020-02-02 19:59 | ED.DCSUM_ITS ---
History of Present Illness Chief Complaint: Chest Pain Informant: Patient Onset: Today Maximum Severity: Mild Narrative: Patient complains of substernal chest pressure that began a few hours ago when she was in [place] sitting in a car, she has had intermittent chest pain for months that seems to come and go in a paroxysmal fashion she is not seen her physicians. She has no history of [place] PE DVT no history of smoking high blood pressure or diabetes, her general health is been very good no coronavirus exposures she has had chest pain in the past related to stress she does not recall being under any significant stress today. The pain seems to come and go nothing makes it better or worse she is not been evaluated for the chest pain Past Medical History - Allergies and Home Meds Allergies/Adverse Reactions: Allergies No Known Allergies Allergy (Verified 12/25/19 22:08) Primary Care Physician: Marium Townsend DIRECTOR OF CASEWORK, DIRECTOR OF CASEWORK-C [Primary Care Provider] - Past Medical History: - Surgical History: no surgical history, noncontributory, - - no abd surgeries Smoking Status: Former smoker Review of Systems ROS: - Includes as above General: Denies: Chills, Fever, Sweats Eyes: Denies: Visual changes - bilaterally, Diplopia ENT: Denies: Rhinorrhea, Sore throat Cardiovascular: Reports: Chest pain Respiratory: Denies: Dyspnea, Cough, Dyspnea on exertion Gastrointestinal: Denies: Abdominal pain, Nausea, Vomiting, Diarrhea, Melena, Hematochezia Genitourinary: Denies: Dysuria, Hematuria, Frequency Musculoskeletal: Denies: Back pain, Extremity Pain Skin: Denies: Rash, Wounds Neurological: Denies: Headache, Weakness, Numbness Physical Exam Vital Signs/Narrative: Vital Signs Temp Pulse Resp BP Pulse Ox 02/02/20 19:48 100 02/02/20 19:29 98.5 F 84 18 165/84 H 96 General: Well nourished, Well developed, No Acute Distress Head: Normocephalic, Atraumatic Eyes: Perrl, EOMI ENT: Moist mucous membranes, No rhinorrhea Neck: Supple, Nontender Cardiovascular: Regular rate, Regular rhythm, No murmurs Respiratory: No distress, CTA bilaterally, Chest nontender Abdomen: Soft, Nontender, Nondistended, Normal bowel sounds Back: Nontender, Normal Inspection Extremities: Nontender, No edema Skin: Normal color, No rash Neurological: Alert, Oriented x3, Cranial nerves II-XII grossly intact, Normal Strength, Normal Sensation Psychological: Normal affect, Normal Mood Diagnostic/Tx/Re-eval - Medical Decision Making Patient's vital signs and physical exam are unremarkable for patient's EKG Shows a rate of 93 intervals within normal range no acute injury, she has had this pain on and off nothing triggered it her other health conditions and status has been very stable at this time ED screening evaluation The patient's ED screening evaluation labs chest x-ray unremarkable she is feeling better, we discussed the differential, inpatient versus outpatient ongoing management she does not wish to be admitted and outpatient management with her providers she understands need to return for change in symptoms and she will see her outpatient providers as soon as possible Home stable declined admission Impression final chest pain etiology unclear ED Disposition - Plan for ED Patient: Diagnosis: Chest pain Instructions: ED Chest Pain Atypical Unkn Cause Referrals: Marium Townsend NP, DIRECTOR OF CASEWORK-C [Primary Care Provider] -
[2020-02-02 20:10] LABS: Anion Gap 7 (5-15); BUN 11 mg/dL (7-18); BUN/Creat Ratio 12.1 RATIO (10-20); Chloride 110 mmol/L (98-107); Creatinine, Serum 0.91 mg/dL (0.55-1.02); EST Glomerular Filtration Rate 78 mL/min (>60); Est Glom Filt Rate - Afr Amer 94 mL/min (>60); Estimated Creatinine Clearance 72.14 ml/min; Glucose 112 mg/dL (74-106); Potassium 3.7 mmol/L (3.5-5.1); Sodium Level 139 mmol/L (136-145)
[2020-02-02] MEDS: Mag Hydrox/Al Hydrox/Simeth 30 ML UDC PO (20:36)
[2020-02-02 20:55] VITALS: BP 105/69; PULSE 74; RESP 17; O2SAT 98
== END 2020-02-02 20:56 | disposition home or self-care (01) ==
PROVIDERS: Emergency Provider Emergency Medicine; PCP Nurse Practitioner Family
DX: R07.9 Chest pain, unspecified (principal); Z87.891 Personal history of nicotine dependence
CPT/HCPCS: 71045; 80048; 84484; 85025; 85379; 93005; 99284; J7040; A4216

== ENCOUNTER → 2020-02-26 | Outpatient (CLI) | payer BC, SELFPAY ==
[2020-02-02 19:29] VITALS: BMI 48.6
[2020-02-29 03:08] LABS: Chlamydia By Nucleic Acid AMP Negative (Negative)
[2020-02-29 04:54] LABS: Gonococcus By Nucleic Acid AMP Negative (Negative)
== END | disposition home or self-care (01) ==
LOC: LABSPEC 10:48
PROVIDERS: PCP Nurse Practitioner Family; Visit Provider Obstetrics & Gynecology
DX: Z11.3 Encounter for screening for infections with a predominantly sexual mode of transmission (principal)
CPT/HCPCS: 87491; 87591

== ENCOUNTER → 2020-03-19 10:32 | Outpatient (CLI) | payer BC, SELFPAY ==
[2020-03-19 12:45] LABS: Vitamin D,25 Hydroxy 23.7 ng/mL
[2020-03-19 12:54] LABS: Anion Gap 7 (5-15); BUN 15 mg/dL (7-18); BUN/Creat Ratio 18.8 RATIO (10-20); Calcium,Total 8.8 mg/dL (8.5-10.1); Chloride 107 mmol/L (98-107); Cholesterol 96 mg/dL (200); EST Glomerular Filtration Rate 90 mL/min (>60); Est Glom Filt Rate - Afr Amer 109 mL/min (>60); Glucose 91 mg/dL (74-106); High Density Lipoprotein 39 mg/dL; Potassium 3.9 mmol/L (3.5-5.1); Sodium Level 139 mmol/L (136-145); Thyroid Stim Hormone (TSH) 1.13 uIU/mL (0.358-3.74); Triglycerides 64 mg/dL; Very Low Density Lipoprotein 13 mg/dL (5-40)
== END ==
LOC: MFPLAB 10:33
PROVIDERS: PCP Family Medicine; Referring Provider Family Medicine; Visit Provider Family Medicine
DX: Z00.00 Encounter for general adult medical examination without abnormal findings (principal)
CPT/HCPCS: 36415; 80048; 80061; 82306; 84443

== ENCOUNTER 2020-03-31 21:22 | Emergency (ER) | payer BC, SELFPAY ==
[2020-03-31 21:22] VITALS: BP 136/85; PULSE 86; RESP 18; TEMP 36.2; O2SAT 98; BMI 42.0
[2020-03-31] MEDS: Ondansetron 4 MG/2 ML Vial IV (21:41)
[2020-03-31] MEDS: 0.9% Normal Saline 1,000 ML 250 ML IV (21:41)
[2020-03-31] MEDS: Ketorolac 15 MG/ML Vial IV (21:41)
[2020-03-31 22:03] LABS: Absolute Lymphocyte Count 3.42 X10^3/uL (0.83-4.51); Absolute Neutrophil Count 8.2 X10^3/uL (2.0-7.7); Basophil# 0.03 X10^3/uL; Basophil% 0.2 % (0-1); Eosinophil# 0.37 X10^3/uL; Eosinophils% 2.9 % (0-5); Hematocrit 41.4 % (37-47); Hemoglobin 13.3 g/dL (12.0-15.0); Lymphocyte # 3.42 X10^3/ul (4.0); Lymphocyte % 26.4 % (19-41); Mean Corp Hgb Conc 32.1 g/dL (32-36); Mean Corpuscular Hgb 27.7 pg (27.0-32.0); Mean Corpuscular Volume 86.3 fL (81-99); Mean Platelet Vol. 9.1 fl (6.2-12.0); Monocyte# 0.93 X10^3/uL; Monocyte% 7.2 % (0-10); NRBC Flagged by Analyzer 0 % (0-5); Neutrophil # 8.17 X10^3/uL (2.7-7.7); Platelet Count 401 K/mm3 (150-450); RBC Distribution Width CV 12.8 % (11.6-14.6); RBC Distribution Width SD 40.2 fl (35.1-43.9)
--- NOTE | 2020-03-31 22:06 | ED.DCSUM_ITS ---
- ER Visit Summary Date of Service: 03/31/20 Chief Complaint: Left flank/abdominal pain History of Present Illness: The patient is a 29 F who has left flank and abdominal pain. The pain started suddenly about 2 hours ago. She describes the pain as sharp now in her left lower quadrant/pelvic region. Nothing seems to make it better or worse. She did have some nausea and vomiting at home today. No diarrhea or constipation. She denies any dysuria or hematuria. She does have a history of kidney stones and this feels very similar. The pain did start in her flank and is now more towards the left lower quadrant. She denies any vaginal bleeding or vaginal discharge. She did have a Mirena placed 3 months ago. Physical Examination: Vital signs reviewed. HEENT exam unremarkable. Heart is regular rate and rhythm without murmurs. Lungs are clear to auscultation. Abdomen is soft with tenderness in the left lower quadrant. There is no guarding or rebound tenderness. Extremities reveal no edema. Skin exam normal. Neurologic exam normal. Test Results: The patient will have laboratory studies, CAT scan and urine studies. She is given Toradol and Zofran. Patient will be signed out the oncoming physician for further evaluation Emergency Department Course and Treatment: [] Treatment Plan: [] Disposition: Pending Impression: Abdominal pain This note was generated with [employer] dictation software. It may contain incorrect words, spelling, and punctuation that were not noted in review of the chart prior to signing ED Disposition - Plan for ED Patient: Referrals: Dg Ga MD [Primary Care Provider] -
[2020-03-31 22:12] LABS: Internal QC Validated? YES +Cl - CLEAR BKGD; Pregnancy, Serum, hCG Quali. NEGATIVE Negative
[2020-03-31 22:16] LABS: Anion Gap 7 (5-15); BUN 17 mg/dL (7-18); BUN/Creat Ratio 18.9 RATIO (10-20); Calcium,Total 9.1 mg/dL (8.5-10.1); Chloride 111 mmol/L (98-107); EST Glomerular Filtration Rate 79 mL/min (>60); Est Glom Filt Rate - Afr Amer 95 mL/min (>60); Estimated Creatinine Clearance 79.64 ml/min; Glucose 105 mg/dL (74-106); Potassium 3.7 mmol/L (3.5-5.1); Sodium Level 143 mmol/L (136-145)
[2020-03-31 22:19] LABS: Bacteria 0 SEEN /hpf (None Seen); Red Blood Cells-Urine 0 SEEN /hpf (0-5)
--- NOTE | 2020-03-31 22:24 | CT_ITS ---
HISTORY: PELVIC/ LEFT LOWER ABD PAIN ADDITIONAL HISTORY: None provided. EXAMINATION/TECHNIQUE: CT Abdomen And Pelvis W/O Contrast Injection Enteric contrast was not given. Number of images including paperwork: 154. A radiation dose optimization technique was used for this scan. COMPARISON: 07/09/2019 FINDINGS: Evaluation of the abdominopelvic organs is limited in the absence of contrast. LOWER THORAX: No consolidation or pleural effusion. LIVER: Decreased density compatible with steatosis. GALLBLADDER: No radiopaque calculi. BILE DUCTS: No significant biliary dilatation. SPLEEN: Unremarkable. PANCREAS: Unremarkable. ADRENAL GLANDS: Unremarkable. KIDNEYS/URETERS: Unremarkable. BOWEL: No bowel obstruction. No significant bowel wall thickening. No localized inflammation. APPENDIX: Normal. FREE FLUID: No significant free fluid. FREE AIR: None. LYMPH NODES: No pathologic appearing adenopathy. PERITONEUM, RETROPERITONEUM AND MESENTERY: Otherwise unremarkable. VASCULATURE: Unremarkable as imaged. ABDOMINAL WALL: Unremarkable. PELVIS: Unremarkable bladder. IUD. No pelvic mass. OSSEOUS AND SOFT TISSUE STRUCTURES: No acute skeletal findings. CT/Abdomen/Pelvis without Cont IMPRESSION: No acute abdominopelvic abnormality. Individualized dose optimization techniques were used for this CT. at 2239 Reported and signed by: Gunjan Simmons MD Electronically Signed: Gunjan Simmons MD at 22:35 EST Tel , Service support ,
[2020-03-31 22:33] LABS: Color, Urine Yellow (Yellow); Glucose, Dipstick Normal (Normal); Ketone-Dipstick Negative (Negative); Leukocyte Esterase-Dipstick 25 /ul (Negative); Nitrite-Dipstick Negative (Negative); Occult Blood-Urine 150 /ul (Negative); Protein-Dipstick 15 mg/dl (Negative); Urine Bilirubin Dipstick Negative (Negative); Urine Clarity Clear (Clear); Urine Urobilinogen Normal (Normal)
[2020-03-31 22:50] LABS: Mucous, Urine 1+ /hpf (<or=2+); Squamous Epithelial Cells - UA 0-5 SEEN /hpf (5-10); White Blood Cells 0-5 SEEN /hpf (0-5)
[2020-03-31] MEDS: HYDROcodone Bitartrate/Apap 5/325 Tablet PO (22:51)
--- NOTE | 2020-03-31 23:01 | US_ITS ---
HISTORY: LLQ PAIN X FEW HOURS R/O TORSION ADDITIONAL HISTORY: None provided. COMPARISON: CT 03/31/2020 TECHNIQUE: Transvaginal sonographic images of the pelvis were acquired utilizing grayscale, color Doppler and spectral Doppler imaging. FINDINGS: UTERUS: Coarsened echotexture without distinct mass. ENDOMETRIUM: IUD is noted in the endometrium of the body and fundus. Endometrium measures about 4 mm in thickness. OVARIES: Right ovary 2.5 x 1.6 x 2 x 3 cm. Left ovary 2.5 x 1.7 x 2.0 cm. Normal morphology. Flow appears to be demonstrated in the ovaries with with special Doppler evaluation, somewhat technically limited on the right. Torsion would be unusual in normal morphology and normal sized ovaries. ADNEXA: No mass. FREE FLUID: None detected. US/Transvaginal Non- IMPRESSION: No acute pelvic abnormality is sonographically apparent. at 2352 Reported and signed by: Gunjan Simmons MD Electronically Signed: Gunjan Simmons MD at 23:52 EST Tel , Service support ,
--- NOTE | 2020-03-31 23:55 | ED.DEP ---
ED Disposition - Plan for ED Patient: Disposition: Home or Assisted Living Diagnosis: Acute abdominal pain Instructions: ED Abdominal Pain Unkn Cause Fem Prescriptions: Oxycodone HCl/Acetaminophen [Percocet 5/325] 1 tab PO Q6H PRN PRN 3 Days #12 tab PRN Reason: Pain Prescription Printed Ondansetron [Zofran Odt] 4 mg PO Q6H PRN PRN #14 tab PRN Reason: Nausea Prescription Printed Referrals: Dg Ga MD [Primary Care Provider] - 1 Day for another exam (if symptoms persist or return to the Emergency Department)
[2020-04-01 00:19] VITALS: PULSE 68; RESP 18; O2SAT 98
== END 2020-04-01 00:35 | disposition home or self-care (01) ==
PROVIDERS: Emergency Medicine; Emergency Provider Emergency Medicine; PCP Family Medicine
DX: R10.32 Left lower quadrant pain (principal); R11.2 Nausea with vomiting, unspecified; Z87.442 Personal history of urinary calculi
CPT/HCPCS: 74176; 76830; 80048; 81001; 84703; 85025; 93976; 96361; 96374; 96375; 99285; J7030; A4216; J2405

== ENCOUNTER → 2020-04-28 15:30 | Outpatient (CLI) | payer BC, SELFPAY ==
[2020-03-31 21:22] VITALS: BMI 42.0
--- NOTE | 2020-04-28 15:33 | RAD_ITS ---
HISTORY: left foot pain on top, no injury EXAMINATION/TECHNIQUE: XR left foot 3 views with weightbearing COMPARISON: None FINDINGS: No fracture. Joint spaces are preserved. Normal bony alignment. Small plantar and posterior calcaneal spurs. The plantar arch is maintained. As visualized, the soft tissues are negative. RAD/Foot min 3 Views IMPRESSION: Small plantar and posterior calcaneal spurs, left foot. Otherwise negative exam. No acute disease. at 0605 Reported and signed by: Prabhjot Mae MD Electronically Signed: Prabhjot Mae, at 6:04 EST Tel , Service support ,
== END ==
LOC: MTRAD 15:32
PROVIDERS: PCP Family Medicine; Referring Provider Family Medicine; Visit Provider Family Medicine
DX: M77.32 Calcaneal spur, left foot (principal)
CPT/HCPCS: 73630

== ENCOUNTER → 2020-11-27 11:45 | Outpatient (CLI) | payer OTHER, SELFPAY ==
[2020-11-27 15:00] LABS: Absolute Lymphocyte Count 2.53 X10^3/uL (0.83-4.51); Absolute Neutrophil Count 5.4 X10^3/uL (2.0-7.7); Basophil# 0.04 X10^3/uL; Basophil% 0.5 % (0-1); Eosinophil# 0.25 X10^3/uL; Eosinophils% 2.9 % (0-5); Hematocrit 41.2 % (37-47); Hemoglobin 13.1 g/dL (12.0-15.0); Lymphocyte # 2.53 X10^3/ul (0.83-4.51); Lymphocyte % 29.1 % (19-41); Mean Corp Hgb Conc 31.8 g/dL (32-36); Mean Corpuscular Hgb 26.9 pg (27.0-32.0); Mean Corpuscular Volume 84.6 fL (81-99); Mean Platelet Vol. 9.1 fl (6.2-12.0); Monocyte# 0.39 X10^3/uL; Monocyte% 4.5 % (0-10); NRBC Flagged by Analyzer 0 % (0-5); Neutrophil # 5.43 X10^3/uL (2.7-7.7); Neutrophil % 62.4 % (47-70); Platelet Count 429 K/mm3 (150-450); RBC Distribution Width SD 39.8 fl (35.1-43.9); Red Blood Count 4.87 M/mm3 (4.2-5.4); White Blood Count 8.7 K/mm3 (4.4-11.0)
[2020-11-27 15:14] LABS: Anion Gap 7 (5-15); BUN 12 mg/dL (7-18); BUN/Creat Ratio 14.2 RATIO (10-20); Calcium,Total 8.8 mg/dL (8.5-10.1); Chloride 106 mmol/L (98-107); Creatinine, Serum 0.85 mg/dL (0.55-1.02); EST Glomerular Filtration Rate 84 mL/min (>60); Est Glom Filt Rate - Afr Amer 101 mL/min (>60); Glucose 150 mg/dL (74-106); Potassium 3.5 mmol/L (3.5-5.1); Sodium Level 136 mmol/L (136-145)
== END ==
LOC: MFPLAB 11:47
PROVIDERS: PCP Family Medicine; Visit Provider Family Medicine
DX: R42 Dizziness and giddiness (principal)
CPT/HCPCS: 36415; 80048; 85025

== ENCOUNTER 2021-03-13 14:12 | Emergency (ER) | payer OTHER, SELFPAY ==
[2021-03-13 14:13] VITALS: BP 144/93; PULSE 86; RESP 16; TEMP 36.1; O2SAT 97; BMI 47.3
--- NOTE | 2021-03-13 14:26 | RAD_ITS ---
STUDY: X-RAY - THORACIC SPINE REASON FOR EXAM: Female, 30 years old. Pain TECHNIQUE: 2 view(s) of the thoracic spine were obtained. COMPARISON: None. FINDINGS: Normal kyphosis of the thoracic spine. There is no substantial scoliosis. There is multilevel endplate spondylosis of the thoracic vertebrae. There is multilevel disc space narrowing of the thoracic spine. The soft tissue structures are unremarkable. RAD/Thoracic Spine 2 Views IMPRESSION: Multilevel disc space narrowing and spondylosis in the mid dorsal spine. Electronically Signed: Alex Motta MD at 15:08 EDT , Service support ,
--- NOTE | 2021-03-13 14:27 | EDS_ITS ---
HPI History of Present Illness Chief Complaint: Upper Extremity Injury Informant: patient Onset/Context/Timing Onset: Yesterday Context: Gradual Onset Timing: Waxes and wanes Quality of Pain: Aching and Throbbing Current Severity: Moderate Maximum Severity: Severe Narrative Narrative: Patient presents secondary to left shoulder pain. She states pain started yesterday mid afternoon. She describes a tightness in the posterior shoulder blade and upper back. She reports some numbness and tingling in her left arm with occasional sharp shooting pain down her left arm. She denies any known injury. PFSH PFSH Medical History no medical history no medical history Home Medications lidocaine [Lidoderm] 1 patch TOPICAL DAILY #5 ea 03/13/21 [Rx Last Taken Unknown] naproxen [Naprosyn] 500 mg PO BID PRN #20 tab 03/13/21 [Rx Last Taken Unknown] orphenadrine citrate 100 mg PO BID PRN #10 tab 03/13/21 [Rx Last Taken Unknown] oxycodone-acetaminophen [Percocet] 1 tab PO Q6H PRN 3 Days #10 tab 03/13/21 [Rx Last Taken Unknown] testosterone cypionate 200 mg IM QWEEK 03/13/21 [History Last Taken Unknown] Allergy/AdvReac Type Severity Reaction Status Date / Time No Known Allergies Allergy Verified 03/13/21 14:18 Family History Mother Hypertension Surgical History [place] teeth removed Social History Smoking Status: Never smoker additional social history: Lives with and 2 sons [facility] ED Constitutional Constitutional ED: Denies chills or fever(s) Eyes Eyes: Denies change in vision ENT ENT ED: Denies sore throat Cardiovascular Cardiovascular: Denies chest pain Respiratory/Chest Respiratory/Chest: Denies cough or dyspnea Gastrointestinal Gastrointestinal: Denies abdominal pain, diarrhea, nausea or vomiting Genitourinary Genitourinary ED: Denies dysuria Musculoskeletal Musculoskeletal: Reports back pain, myalgias and neck pain Integumentary Denies rash Neurologic Neurologic: Reports paresthesias and weakness; Denies headache(s) Allergic/Immunologic Allergic/Immunologic ED: Denies urticaria EXAM Physical Exam Const Vital Signs: 03/13/21 14:13 Temperature 97 F L Temperature Source Temporal Pulse Rate 86 Respiratory Rate 16 Blood Pressure 144/93 H Blood Pressure Mean 110 Pulse Ox 97 Oxygen Delivery Method Room Air Positive well nourished and well developed General Appearance ED: well developed Eyes PERRL and EOMs intact bilaterally Neck supple Chest Wall inspection of chest normal and palpation of chest normal Resp normal respiratory effort and clear to auscultation bilaterally Cardio regular rate and regular rhythm Back/Spine Back/Spine Narrative: No midline cervical or thoracic tenderness. Reproducible tenderness in the left upper thoracic paraspinal muscles and over the left scapula. Extremity Extremity Narrative: Mild tenderness over the posterior left shoulder. No evidence of dislocation. Strong distal pulses with normal sensation and cap refill. Neuro oriented x3 Sensorium / Orientation: alert Skin Lesions: no lesions Rashes: no rashes MDM MDM MDM Narrative Medical decision making narrative: Patient was given oxycodone, Toradol, Norflex. X-rays of the left shoulder and thoracic spine obtained. Radiography Diagnostic Testing: Thoracic spine x-ray IMPRESSION: Multilevel disc space narrowing and spondylosis in the mid dorsal spine. Left shoulder x-ray IMPRESSION: Normal x-ray examination of the shoulder. Treatment and Re-Evaluation Comments:: On repeat evaluation patient resting comfortably. She states that she still has pain and explained to her that the medication regimen today would not completely take her pain away, but we will write her prescriptions to continue. She will be placed in a sling. X-ray results discussed with her and largely unremarkable. Return instructions provided. Discharge Plan Triage Chief Complaint: Upper Extremity Injury ED Provider: Jalyn Lynch Dx/Rx/DC Orders Clinical Impression: Muscle spasm, Back pain Instructions: ED Back Pain (Acute or Chronic), ED Muscle Spasm Prescriptions: New orphenadrine citrate 100 mg tablet extended release 100 mg PO BID PRN (Reason: muscle spasm) Qty: 10 RF: 0 oxycodone-acetaminophen [Percocet] 5-325 mg tablet 1 tab PO Q6H PRN (Reason: pain) 3 Days Qty: 10 RF: 0 naproxen [Naprosyn] 500 mg tablet 500 mg PO BID PRN (Reason: pain) Qty: 20 RF: 0 lidocaine [Lidoderm] 5 % adhesive patch,medicated 1 patch topical DAILY Qty: 5 RF: 0 No Action testosterone cypionate 200 mg/mL oil 200 mg IM QWEEK RF: 0 Stand Alone Forms: ED Work / School Excuse Referrals: MATTHEW KRAFT [Other] - 1 Week if not improving Disposition Disposition: Home, Self Care
[2021-03-13] MEDS: oxyCODONE 5 MG Tablet PO (14:33)
[2021-03-13] MEDS: Ketorolac 60 MG/2 ML Vial IM (14:34)
[2021-03-13] MEDS: Orphenadrine 60 MG/2 ML Ampul IM (14:35)
--- NOTE | 2021-03-13 14:47 | RAD_ITS ---
STUDY: X-RAY - LEFT SHOULDER REASON FOR EXAM: Female, 30 years old. Pain TECHNIQUE: 4 view(s) of the shoulder. COMPARISON: None. FINDINGS: Normal glenohumeral articulation. Normal acromioclavicular joint. Normal acromion. Normal humeral head and visualized proximal humerus. The soft tissue structures are unremarkable. Normal visualized pulmonary apex. RAD/Shoulder min 2 Views IMPRESSION: Normal x-ray examination of the shoulder. Electronically Signed: Alex Motta MD at 15:07 EDT , Service support ,
[2021-03-13 15:38] VITALS: BP 142/64; PULSE 80; RESP 16; TEMP 36.9; O2SAT 97
== END 2021-03-13 15:39 | disposition home or self-care (01) ==
PROVIDERS: Emergency Provider Emergency Medicine
DX: M62.830 Muscle spasm of back (principal); M47.814 Spondylosis without myelopathy or radiculopathy, thoracic region; M48.04 Spinal stenosis, thoracic region
CPT/HCPCS: 72070; 73030; 96372; 99283

== ENCOUNTER 2021-03-19 17:16 | Emergency (ER) | payer OTHER, SELFPAY ==
[2021-03-19 17:17] VITALS: BP 159/104; PULSE 117; RESP 30; TEMP 37.2; O2SAT 97; BMI 47.5
--- NOTE | 2021-03-19 17:28 | EKG12_ITS ---
Test Reason : CP Blood Pressure : / mmHG Vent. Rate : 108 BPM Atrial Rate : 108 BPM P-R Int : 150 ms QRS Dur : 082 ms QT Int : 322 ms P-R-T Axes : 034 074 010 degrees QTc Int : 431 ms Sinus tachycardia Poor R wave progression Confirmed by ISAAC CHIRINOS, DUYEN ([id number]), makeup editor JONNY MARSHALL ([id number]) on 03/20/2021 1:51:27 PM Referred By: Allie Copeland Confirmed By:DUYEN GRAY MD
[2021-03-19 17:51] VITALS: BP 181/92; PULSE 107; RESP 29; TEMP 36.6; O2SAT 98
--- NOTE | 2021-03-19 17:58 | RAD_ITS ---
EXAM: XR CHEST, 1 VIEW CLINICAL INDICATION: cough TECHNIQUE: Frontal view of the chest. This report was created using [employer] report generation technology. COMPARISON: 02/02/2020 FINDINGS: LUNGS AND PLEURAL SPACES: Unremarkable. No consolidation or edema. No pneumothorax. No effusion. HEART: Unremarkable. Cardiac silhouette not enlarged. MEDIASTINUM: Central airways and mediastinal contour are unremarkable. BONES/JOINTS: Unremarkable. SOFT TISSUES: Unremarkable. RAD/Chest 1 View (Portable) IMPRESSION: No radiographic evidence of acute cardiopulmonary disease. Electronically Signed: Elia Man MD at 18:59 EDT , Service support ,
[2021-03-19] MEDS: 0.9% Normal Saline 1,000 ML 999 ML IV (18:17)
[2021-03-19] MEDS: dexAMETHasone 10 MG/ML Vial IV (18:17)
[2021-03-19 18:21] VITALS: BP 133/72; PULSE 100; RESP 26; TEMP 37.1; O2SAT 97
[2021-03-19 18:35] LABS: Absolute Lymphocyte Count 1.56 X10^3/uL (0.83-4.51); Absolute Neutrophil Count 3.4 X10^3/uL (2.0-7.7); Basophil# 0.02 X10^3/uL; Basophil% 0.3 % (0-1); Eosinophil# 0.29 X10^3/uL; Eosinophils% 4.7 % (0-5); Hematocrit 45.1 % (37-47); Hemoglobin 14.9 g/dL (12.0-15.0); Lymphocyte # 1.56 X10^3/ul (0.83-4.51); Mean Corpuscular Volume 81.9 fL (81-99); Mean Platelet Vol. 8.9 fl (6.2-12.0); Monocyte# 0.94 X10^3/uL; Monocyte% 15.1 % (0-10); NRBC Flagged by Analyzer 0 % (0-5); Neutrophil % 54.6 % (47-70); Platelet Count 360 K/mm3 (150-450); RBC Distribution Width SD 38.5 fl (35.1-43.9); Red Blood Count 5.51 M/mm3 (4.2-5.4); White Blood Count 6.2 K/mm3 (4.4-11.0)
[2021-03-19 18:54] LABS: Anion Gap 5 (5-15); BUN 10 mg/dL (7-18); BUN/Creat Ratio 10.6 RATIO (10-20); Calcium,Total 8.9 mg/dL (8.5-10.1); Chloride 108 mmol/L (98-107); Creatinine, Serum 0.94 mg/dL (0.55-1.02); EST Glomerular Filtration Rate 74 mL/min (>60); Est Glom Filt Rate - Afr Amer 89 mL/min (>60); Estimated Creatinine Clearance 72.39 ml/min; Glucose 88 mg/dL (74-106); Magnesium 2.2 mg/dL (1.6-2.6); Potassium 3.9 mmol/L (3.5-5.1); Sodium Level 141 mmol/L (136-145); Troponin-I HS 7 pg/mL (3.0-54.0)
[2021-03-19 19:56] VITALS: BP 154/102; PULSE 97; RESP 17; TEMP 37.1; O2SAT 96
[2021-03-19 20:00] VITALS: BP 154/102; PULSE 97; RESP 17; TEMP 37.1; O2SAT 96
--- NOTE | 2021-03-19 20:07 | EDS_ITS ---
HPI History of Present Illness Chief Complaint: Shortness of Breath Narrative Narrative: Patient is a 30-year-old female who states that over the past 2 to 3 days she has had increased nasal congestion sore throat cough and shortness of breath. She states yesterday she noticed she was losing her sense of taste and smell and does have concern for Covid. She reports she is not vaccinated and denies any known exposures but with her symptom profile presents for evaluation. PFSH PFS Medical History no medical history Home Medications lidocaine [Lidoderm] 1 patch TOPICAL DAILY #5 ea 03/13/21 [Rx Last Taken Unknown] naproxen [Naprosyn] 500 mg PO BID PRN #20 tab 03/13/21 [Rx Last Taken Unknown] orphenadrine citrate 100 mg PO BID PRN #10 tab 03/13/21 [Rx Last Taken Unknown] oxycodone-acetaminophen [Percocet] 1 tab PO Q6H PRN 3 Days #10 tab 03/13/21 [Rx Last Taken Unknown] testosterone cypionate 200 mg IM QWEEK 03/13/21 [History Last Taken Unknown] albuterol sulfate [Ventolin HFA] 1 - 2 puff INHALATION Q4H PRN PRN #1 device 03/19/21 [Rx Last Taken Unknown] dexamethasone [Decadron] 6 mg PO DAILY #10 tab 03/19/21 [Rx Last Taken Unknown] promethazine-codeine 5 ml PO Q6H PRN 7 Days #140 ml 03/19/21 [Rx Last Taken Unknown] Allergy/AdvReac Type Severity Reaction Status Date / Time No Known Allergies Allergy Verified 03/19/21 17:17 Family History Mother Hypertension Surgical History [place] teeth removed Social History Smoking Status: Never smoker additional social history: Lives with and 2 sons [facility] ED Constitutional Constitutional ED: Reports chills and fever(s) ENT ENT ED: Reports rhinorrhea and sore throat Cardiovascular Cardiovascular: Denies chest pain Respiratory/Chest Respiratory/Chest: Reports cough and dyspnea Gastrointestinal Gastrointestinal: Reports nausea; Denies abdominal pain, diarrhea or vomiting Genitourinary Genitourinary ED: Denies dysuria Musculoskeletal Musculoskeletal: Reports myalgias Integumentary Denies rash Neurologic Neurologic: Reports headache(s) Hematologic/Lymphatic Hematologic/Lymphatic: Denies easy bleeding or easy bruising EXAM Physical Exam Const Vital Signs: 03/19/21 17:17 03/19/21 17:51 03/19/21 18:21 Temperature 98.9 F 98 F 98.8 F Temperature Source Temporal Temporal Temporal Pulse Rate 117 H 107 H 100 Respiratory Rate 30 H 29 H 26 H Respiratory Effort Normal Non-Labored Respiratory Depth Normal Respiratory Pattern Normal Blood Pressure 159/104 H 181/92 H 133/72 H Blood Pressure Mean 122 121 92 Pulse Ox 97 98 97 Oxygen Delivery Method Room Air Room Air Room Air 03/19/21 19:56 03/19/21 20:00 03/19/21 20:27 Temperature 98.7 F 98.7 F Temperature Source Temporal Temporal Pulse Rate 97 97 Respiratory Rate 17 17 Respiratory Effort Respiratory Depth Respiratory Pattern Blood Pressure 154/102 H 154/102 H 141/92 H Blood Pressure Mean 119 119 Pulse Ox 96 96 Oxygen Delivery Method Room Air Positive well nourished, well developed and obese General Appearance ED: well developed Nutritional Appearance: obese HEENT HEENT Narrative: Cobblestoning the posterior pharynx consistent with sinus drainage but no airway edema or compromise Eyes PERRL and EOMs intact bilaterally Neck supple and no JVD Neck Narrative: Positive anterior cervical lymphadenopathy Resp Resp Narrative: Breath sounds are diminished throughout with faint expiratory wheeze and tachypnea noted but no nasal flaring or retractions or accessory muscle use Cardio regular rhythm Rate: other Other Details: Slightly tachycardic rate with regular rhythm GI normal to inspection, nondistended, normoactive bowel sounds, non-tender, non- distended and no masses Auscultation: normoactive bowel sounds Palpation: soft Extremity normal to inspection Extremity Narrative: No asymmetric edema no pitting edema negative Homans' sign bilaterally Neuro oriented x3 and CN's II-XII intact bilaterally Sensorium / Orientation: alert Motor Exam: strength 5/5 throughout Psych mental status grossly normal Skin no rashes or lesions noted MDM MDM MDM Narrative Medical decision making narrative: Patient presented to the ER satting well on room air but did have diminished breath sounds with wheezing and tachypnea noted. Her symptom profile is concerning for Covid so therefore basic work-up was obtained with Covid swab and chest x-ray. Chest x-ray revealed no obvious pneumonia and lab work revealed no clinically significant findings. Patient's Covid test is positive consistent with her exam and symptom profile. At this time however she is not requiring supplemental oxygen and therefore does not need admitted to the hospital. She will be placed on Decadron and albuterol inhaler and Phenergan with codeine and also given an order to have monoclonal antibody infusion as I feel this will help her symptoms. However she is not in acute respiratory distress with hypoxia can be discharged home Lab Data Attestation: I reviewed the patient's lab results. Labs: Laboratory Results - last 24 hr 03/19/21 03/19/21 18:18 18:18 WBC 6.2 RBC 5.51 H Hgb 14.9 Hct 45.1 MCV 81.9 MCH 27.0 MCHC 33.0 RDW Std Deviation 38.5 RDW Coeff of Nguyen 13.0 Plt Count 360 MPV 8.9 Immature Gran % (Auto) 0.300 Neut % (Auto) 54.6 Lymph % (Auto) 25.0 Yates % (Auto) 15.1 H Eos % (Auto) 4.7 Baso % (Auto) 0.3 Absolute Neuts (auto) 3.4 Absolute Lymphs (auto) 1.56 Nucleated RBC % 0 Sodium 141 Potassium 3.9 Chloride 108 H Carbon Dioxide 28.0 Anion Gap 5 BUN 10 Creatinine 0.94 Estim Creat Clear Calc 72.39 Est GFR (MDRD) Af Amer 89 Est GFR (MDRD) Non-Af 74 BUN/Creatinine Ratio 10.6 Glucose 88 Calcium 8.9 Magnesium 2.2 Troponin I High Sens 7 Radiography Diagnostic Testing: Clinical Impression(s) from Imaging Studies Chest X-Ray 03/19/21 17:58 IMPRESSION: No radiographic evidence of acute cardiopulmonary disease. Electronically Signed: Elia Man MD at 18:59 EDT , Service support , Discharge Plan Triage Chief Complaint: Shortness of Breath ED Provider: Maurisio Ramey Dx/Rx/DC Orders Clinical Impression: COVID-19 Instructions: Coronavirus Disease 2019 (COVID-19): Caring for Yourself or Others Prescriptions: New dexamethasone [Decadron] 6 mg tablet 6 mg PO DAILY Qty: 10 RF: 0 albuterol sulfate [Ventolin HFA] 90 mcg/actuation HFA aerosol inhaler 1 - 2 puff inhalation Q4H PRN PRN (Reason: Wheezing) Qty: 1 RF: 0 promethazine-codeine 6.25-10 mg/5 mL syrup 5 ml PO Q6H PRN (Reason: cough) 7 Days Qty: 140 RF: 0 No Action testosterone cypionate 200 mg/mL oil 200 mg IM QWEEK RF: 0 orphenadrine citrate 100 mg tablet extended release 100 mg PO BID PRN (Reason: muscle spasm) Qty: 10 RF: 0 oxycodone-acetaminophen [Percocet] 5-325 mg tablet 1 tab PO Q6H PRN (Reason: pain) 3 Days Qty: 10 RF: 0 naproxen [Naprosyn] 500 mg tablet 500 mg PO BID PRN (Reason: pain) Qty: 20 RF: 0 lidocaine [Lidoderm] 5 % adhesive patch,medicated 1 patch topical DAILY Qty: 5 RF: 0 Other Ambulatory Orders: COVID Outpatient Monoclonal Antibody Referral (Routine) Timeframe: 1 Day Facility: [facility] - Location: [facility] Ordered By: Dr. Maurisio Ramey Primary Care Provider: Care Physician,No Primary Referrals: Leonarda Gould MD [STAFF PHYSICIAN] - 3-5 Days if not improving Care Physician,No Primary [Primary Care Provider] - Activity Restrictions/Additional Instructions: Please return to the hospital for your monoclonal antibody treatment as prescribed today Disposition Disposition: Home, Self Care Discharge Date/Time: 03/19/21 20:28
[2021-03-19 20:27] VITALS: BP 141/92
== END 2021-03-19 20:28 | disposition home or self-care (01) ==
PROVIDERS: Emergency Provider Emergency Medicine
DX: U07.1 COVID-19 (principal); E66.9 Obesity, unspecified; Z68.42 Body mass index [BMI] 45.0-49.9, adult
CPT/HCPCS: 71045; 80048; 83735; 84484; 85025; 87426; 93005; 96361; 96374; 99283; J7030; A4216

== ENCOUNTER 2021-03-20 12:27 | Outpatient (CLI) | payer OTHER, SELFPAY ==
[2021-03-20 12:48] VITALS: BP 117/76; PULSE 71; RESP 18; TEMP 36.4; O2SAT 99
[2021-03-20 12:55] VITALS: BMI 47.8
[2021-03-20 13:40] VITALS: BP 109/71; PULSE 69; RESP 16; TEMP 36.6; O2SAT 100
[2021-03-20 14:21] VITALS: BP 114/79; PULSE 73; RESP 16; TEMP 36.4; O2SAT 95
== END 2021-03-20 14:31 | disposition home or self-care (01) ==
LOC: MS3OUT 12:27 → MS3 12:28
PROVIDERS: Referring Provider Nurse Practitioner Acute Care; Visit Provider Nurse Practitioner Acute Care
DX: U07.1 COVID-19 (principal)
CPT/HCPCS: J7050; M0245; Q0245

== ENCOUNTER 2021-03-27 14:12 | Emergency (ER) | payer OTHER, SELFPAY ==
[2021-03-27 14:14] VITALS: BP 144/96; PULSE 86; RESP 20; TEMP 36.8; O2SAT 96; BMI 47.8
[2021-03-27 14:34] VITALS: BP 131/77; PULSE 82; RESP 12; O2SAT 97
--- NOTE | 2021-03-27 14:54 | RAD_ITS ---
STUDY: X-RAY CHEST REASON FOR EXAM: Female, 30 years old. Dyspnea, cough, Covid positive TECHNIQUE: Single AP portable view of the chest. COMPARISON: Comparison is made with prior study dated 03/19/2021. FINDINGS: EKG electrodes are seen. The lungs are clear and expanded. There is no demonstrated pleural abnormality. Normal size heart. Normal mediastinum and kristine. Normal visualized pulmonary arteries. Normal visualized aortic arch and descending thoracic aorta. Normal visualized thoracic spine. Normal visualized ribs, clavicles, and shoulders. There is no demonstrated abnormality of the visualized soft tissue structures of the upper abdomen. RAD/Chest 1 View (Portable) IMPRESSION: Normal x-ray examination of the chest. Electronically Signed: Alex Motta MD at 15:10 EDT , Service support ,
--- NOTE | 2021-03-27 15:04 | EX.ED.DYSGE1 ---
HPI History of Present Illness Chief Complaint: Palpitations Detail of Chief Complaint: Palpitations and shortness of breath Informant: patient Onset/Context/Timing Onset: Days Context: Sudden Onset Timing: Intermittent Quality: Heart pounding and shortness of breath Location: Chest Current Severity: Gone Maximum Severity: Moderate Worsened by: Nothing Relieved by: Nothing Associated Symptoms Associated Symptoms: No other symptoms Narrative Narrative: Pain is a 30-year-old female who presents with palpitations and shortness of breath. Her heart rate varies between 60 and 80 when she is experiencing palpitations. She has a home pulse ox monitor. She states she is not hypoxic. She has a home monitor because she was diagnosed with Covid on March 20. Her symptoms started March 18. She has no other cardiac symptoms. She does report headache, nasal symptoms, nonproductive cough. She is also had diarrhea. She reports weight gain recently. She denies history of thyroid disease. She also reports cold intolerance. She states her TSH was checked many months ago. She did not have those symptoms at that time, however. She does report nausea without vomiting. She states she is constantly thirsty. She has been urinating more as well. She does not have history of diabetes. Prior similar symptoms: No Recent Illness/Hospitalization: Yes (COVID-19 infection) PFSH PFS Medical History COVID-19 Transgender Home Medications naproxen [Naprosyn] 500 mg PO BID PRN #20 tab 03/13/21 [Rx Last Taken Unknown] orphenadrine citrate 100 mg PO BID PRN #10 tab 03/13/21 [Rx Last Taken Unknown] oxycodone-acetaminophen [Percocet] 1 tab PO Q6H PRN 3 Days #10 tab 03/13/21 [Rx Last Taken Unknown] testosterone cypionate 70 mg IM QWEEK 03/13/21 [History Last Taken Unknown] albuterol sulfate [Ventolin HFA] 1 - 2 puff INHALATION Q4H PRN PRN #1 device 03/19/21 [Rx Last Taken Unknown] dexamethasone [Decadron] 6 mg PO DAILY #10 tab 03/19/21 [Rx Last Taken Unknown] promethazine-codeine 5 ml PO Q6H PRN 7 Days #140 ml 03/19/21 [Rx Last Taken Unknown] lidocaine [Lidoderm] 1 patch TOPICAL DAILY PRN 03/20/21 [History Last Taken Unknown] Allergy/AdvReac Type Severity Reaction Status Date / Time No Known Allergies Allergy Verified 03/27/21 14:18 Family History Mother Hypertension Surgical History History of knee surgery [place] teeth removed Social History (Updated 03/27/21 @ 15:[address] Carlo Hernandez MD) household members: family Smoking Status: Never smoker alcohol intake: never substance use type: does not use additional social history: Lives with and 2 sons ROS ROS ED Constitutional Constitutional ED: Reports sweats; Denies chills, fever(s) or subjective Eyes Eyes: Denies blurry vision, change in vision or diplopia ENT ENT ED: Denies ear pain, rhinorrhea or sore throat Cardiovascular Cardiovascular: Reports palpitations; Denies chest pain, orthopnea, paroxysmal nocturnal dyspnea or racing heartbeat Respiratory/Chest Respiratory/Chest: Reports cough and dyspnea; Denies dyspnea on exertion, orthopnea, paroxysmal nocturnal dyspnea or sputum Gastrointestinal Gastrointestinal: Reports diarrhea and nausea; Denies abdominal pain, constipation, melena or vomiting Genitourinary Genitourinary ED: Reports urinary frequency; Denies dysuria or hematuria Musculoskeletal Musculoskeletal: Reports myalgias; Denies arthralgias, back pain or neck pain Integumentary Denies Abrasions or rash Neurologic Neurologic: Reports headache(s) and weakness; Denies paresthesias Endocrine Endocrinology: Reports polydipsia and polyuria; Denies polyphagia Allergic/Immunologic Allergic/Immunologic ED: Denies mouth swelling or urticaria EXAM Physical Exam Const Vital Signs: 03/27/21 14:14 03/27/21 14:34 Temperature 98.2 F Temperature Source Temporal Pulse Rate 86 82 Respiratory Rate 20 H 12 Respiratory Effort Normal Respiratory Pattern Normal Blood Pressure 144/96 H 131/77 H Blood Pressure Mean 112 95 Pulse Ox 96 97 Oxygen Delivery Method Room Air Room Air Positive well nourished, well developed and obese General Appearance ED: well developed and NAD; Negative for cyanotic or diaphoretic Nutritional Appearance: obese HEENT Reports TM's clear and moist mucous membranes HEENT Narrative: Head is atraumatic normocephalic. Tympanic Membrane ED: Yes TM's clear Eyes PERRL and EOMs intact bilaterally General Eye ED: Negative for pale conjunctiva or scleral icterus Neck no lymphadenopathy, supple and no JVD Resp normal respiratory effort and clear to auscultation bilaterally Cardio regular rate, regular rhythm, S1 normal heart sound, S2 normal heart sound and no murmurs GI normal to inspection, nondistended, normoactive bowel sounds and non-tender Palpation: soft Back/Spine no CVA tenderness Cervical Spine: Negative for cervical spine tenderness Thoracic Spine / Upper Back: Negative for thoracic spinal tenderness or paraspinal muscle tenderness Extremity normal to inspection General Extremety ED: Negative for edema or tenderness General Extremity: Negative for edema Neuro oriented x3, CN's II-XII intact bilaterally and no sensory deficits noted Sensorium / Orientation: alert Motor Exam: strength 5/5 throughout Psych mental status grossly normal Skin Skin Narrative: Patient has a generalized erythematous blanching rash face, anterior upper torso and upper back. Rashes: rashes noted MDM MDM MDM Narrative Medical decision making narrative: Patient with palpitations. This could represent cardiac versus noncardiac etiology. Work-up was undertaken. With the reported weight loss cold intolerance TSH was obtained. Because of the polyuria, polydipsia a basic metabolic panel was obtained to assess blood sugar as well as electrolytes and specifically potassium. CBC to rule out anemia. EKG was obtained to rule out cardiac ischemia. Lab Data Attestation: I reviewed the patient's lab results. Lab results narrative: White count is elevated and due to Decadron. Blood sugar is elevated most likely due to the Decadron. Etiology of patient's palpitations unknown. Suspect this may be due to Covid. Labs: Laboratory Results - last 24 hr 03/27/21 03/27/21 15:11 15:11 WBC 21.4 H RBC 5.95 H Hgb 15.8 H Hct 47.6 H MCV 80.0 L MCH 26.6 L MCHC 33.2 RDW Std Deviation 35.6 RDW Coeff of Nguyen 12.5 Plt Count 489 H MPV 8.8 Immature Gran % (Auto) 2.300 H Neut % (Auto) 64.3 Lymph % (Auto) 26.6 [place] % (Auto) 5.9 Eos % (Auto) 0.4 Baso % (Auto) 0.5 Absolute Neuts (auto) 13.8 H Absolute Lymphs (auto) 5.68 H Nucleated RBC % 0 Sodium 137 Potassium 3.1 L Chloride 107 Carbon Dioxide 23.0 Anion Gap 7 BUN 11 Creatinine 0.80 Estim Creat Clear Calc 85.06 Est GFR (MDRD) Af Amer 109 Est GFR (MDRD) Non-Af 90 BUN/Creatinine Ratio 13.8 Glucose 146 H Calcium 9.0 TSH 2.35 Radiography Chest X-Ray - ED: 2 View, Read by ED Physician (Read [id number]), Normal, Heart, Lungs, Mediastinum, Bony Structures and No Acute Disease Diagnostic Testing: Clinical Impression(s) from Imaging Studies Chest X-Ray 03/27/21 14:54 IMPRESSION: Normal x-ray examination of the chest. Electronically Signed: Alex Motta MD at 15:10 EDT , Service support , Discharge Plan Triage Chief Complaint: Palpitations ED Provider: Carlo Hernandez Dx/Rx/DC Orders Clinical Impression: Intermittent palpitations, Hyperglycemia, drug-induced Instructions: High Blood Sugar (Hyperglycemia), ED Palpitations Prescriptions: No Action testosterone cypionate 200 mg/mL oil 70 mg IM QWEEK RF: 0 orphenadrine citrate 100 mg tablet extended release 100 mg PO BID PRN (Reason: muscle spasm) Qty: 10 RF: 0 oxycodone-acetaminophen [Percocet] 5-325 mg tablet 1 tab PO Q6H PRN (Reason: pain) 3 Days Qty: 10 RF: 0 naproxen [Naprosyn] 500 mg tablet 500 mg PO BID PRN (Reason: pain) Qty: 20 RF: 0 dexamethasone [Decadron] 6 mg tablet 6 mg PO DAILY Qty: 10 RF: 0 albuterol sulfate [Ventolin HFA] 90 mcg/actuation HFA aerosol inhaler 1 - 2 puff inhalation Q4H PRN PRN (Reason: Wheezing) Qty: 1 RF: 0 promethazine-codeine 6.25-10 mg/5 mL syrup 5 ml PO Q6H PRN (Reason: cough) 7 Days Qty: 140 RF: 0 lidocaine [Lidoderm] 5 % adhesive patch,medicated 1 patch topical DAILY PRN (Reason: Pain) RF: 0 Referrals: Etelvina Luis [Other] - 1 Week if not improving Disposition Disposition: Home, Self Care
--- NOTE | 2021-03-27 15:11 | EKG12_ITS ---
Test Reason : PALPITATION Blood Pressure : / mmHG Vent. Rate : 063 BPM Atrial Rate : 063 BPM P-R Int : 158 ms QRS Dur : 094 ms QT Int : 388 ms P-R-T Axes : 033 014 017 degrees QTc Int : 397 ms Normal sinus rhythm Normal ECG Confirmed by ISAAC CHIRINOS, DUYEN ([id number]), online content editor JONNY MARSHALL ([id number]) on 03/30/2021 11:12:01 AM Referred By: Confirmed By:DUYEN GRAY MD
[2021-03-27 15:18] LABS: Absolute Lymphocyte Count 5.68 X10^3/uL (0.83-4.51); Absolute Neutrophil Count 13.8 X10^3/uL (2.0-7.7); Basophil% 0.5 % (0-1); Eosinophil# 0.08 X10^3/uL; Eosinophils% 0.4 % (0-5); Hematocrit 47.6 % (37-47); Hemoglobin 15.8 g/dL (12.0-15.0); Lymphocyte # 5.68 X10^3/ul (0.83-4.51); Lymphocyte % 26.6 % (19-41); Mean Corp Hgb Conc 33.2 g/dL (32-36); Mean Corpuscular Hgb 26.6 pg (27.0-32.0); Mean Platelet Vol. 8.8 fl (6.2-12.0); Monocyte# 1.26 X10^3/uL; Monocyte% 5.9 % (0-10); NRBC Flagged by Analyzer 0 % (0-5); Neutrophil # 13.77 X10^3/uL (2.7-7.7); Neutrophil % 64.3 % (47-70); POSITIVE DIFFERENTIAL YES; Platelet Count 489 K/mm3 (150-450); RBC Distribution Width CV 12.5 % (11.6-14.6); RBC Distribution Width SD 35.6 fl (35.1-43.9); Red Blood Count 5.95 M/mm3 (4.2-5.4); White Blood Count 21.4 K/mm3 (4.4-11.0)
[2021-03-27 15:22] LABS: Differential Indicated SCAN CRITERIA MET
[2021-03-27 15:55] LABS: Anion Gap 7 (5-15); BUN 11 mg/dL (7-18); BUN/Creat Ratio 13.8 RATIO (10-20); Chloride 107 mmol/L (98-107); EST Glomerular Filtration Rate 90 mL/min (>60); Est Glom Filt Rate - Afr Amer 109 mL/min (>60); Estimated Creatinine Clearance 85.06 ml/min; Glucose 146 mg/dL (74-106); Potassium 3.1 mmol/L (3.5-5.1); Sodium Level 137 mmol/L (136-145); Thyroid Stim Hormone (TSH) 2.35 uIU/mL (0.358-3.74)
[2021-03-27 16:14] LABS: Atypical Lymphocyte 1+ %; Platelet Estimate SLT INC (ADEQ); Reactive Lymphocyte 1+; Red Cell Morphology NORM C+C NORMAL (NORM C&C)
[2021-03-27 16:18] VITALS: BP 122/73; PULSE 68; RESP 15; O2SAT 99
[2021-03-27] MEDS: Potassium Chloride Oral Soln 20 MEQ/15 ML UDC 50 MEQ PO (16:51)
== END 2021-03-27 16:53 | disposition home or self-care (01) ==
PROVIDERS: Emergency Provider Emergency Medicine
DX: R00.2 Palpitations (principal); R73.9 Hyperglycemia, unspecified; T38.0X5A Adverse effect of glucocorticoids and synthetic analogues, initial encounter; U07.1 COVID-19; E66.9 Obesity, unspecified; Z68.42 Body mass index [BMI] 45.0-49.9, adult
CPT/HCPCS: 71045; 80048; 84443; 85025; 93005; 99284

== ENCOUNTER 2021-04-20 12:23 | Emergency (ER) | payer OTHER, SELFPAY ==
[2021-04-20 12:24] VITALS: BP 133/90; PULSE 89; RESP 18; TEMP 36.6; O2SAT 97; BMI 47.8
--- NOTE | 2021-04-20 14:54 | ED.VIS.BACK ---
HPI History of Present Illness Chief Complaint: Back Informant: patient Onset/Context/Timing Onset: Yesterday Context: Sudden Onset Injury: fall Timing: Continuous Quality: Sharp and Burning Location: Lumbar Worsened by: improves with Ambulation Associated Symptoms Associated Symptoms: Abdominal Pain; Negative for Numbness, Tingling, Radiation to Right Leg, Radiation to Left Leg, Fever, Dysuria, Unable to Ambulate, Unable to Transfer, Urinary Retention, Urinary Incontinence and Fecal Incontinence Narrative Narrative: Patient presents with low back pain that began after a fall yesterday. Patient states she fell down some concrete steps and landed on her back. Patient states the pain radiates into both hips. Patient denies any radiation of the pain down her legs. Patient denies any paresthesias or weakness. Patient denies any bowel or bladder changes. Patient denies any saddle anesthesia. Patient states her pain as sharp and burning. Patient states it is worse with ambulation. Patient states nothing seems to help with it. PFSH PFSH Medical History COVID-19 Transgender Home Medications naproxen [Naprosyn] 500 mg PO BID PRN #20 tab 03/13/21 [Rx Last Taken Unknown] orphenadrine citrate 100 mg PO BID PRN #10 tab 03/13/21 [Rx Last Taken Unknown] oxycodone-acetaminophen [Percocet] 1 tab PO Q6H PRN 3 Days #10 tab 03/13/21 [Rx Last Taken Unknown] testosterone cypionate 70 mg IM QWEEK 03/13/21 [History Last Taken Unknown] albuterol sulfate [Ventolin HFA] 1 - 2 puff INHALATION Q4H PRN PRN #1 device 03/19/21 [Rx Last Taken Unknown] dexamethasone [Decadron] 6 mg PO DAILY #10 tab 03/19/21 [Rx Last Taken Unknown] promethazine-codeine 5 ml PO Q6H PRN 7 Days #140 ml 03/19/21 [Rx Last Taken Unknown] lidocaine [Lidoderm] 1 patch TOPICAL DAILY PRN 03/20/21 [History Last Taken Unknown] potassium chloride 20 meq PO BID #180 ml 03/27/21 [Rx Last Taken Unknown] hydrocodone-acetaminophen 1 tab PO Q6H PRN PRN 3 Days #10 tablet 04/20/21 [Rx Last Taken Unknown] Allergy/AdvReac Type Severity Reaction Status Date / Time No Known Allergies Allergy Verified 04/20/21 12:39 Family History Mother Hypertension Surgical History History of knee surgery [place] teeth removed Social History household members: family Smoking Status: Never smoker alcohol intake: never substance use type: does not use additional social history: Lives with and 2 sons ROS ROS ED Constitutional Constitutional ED: Denies chills or fever(s) Eyes Eyes: Denies blurry vision or change in vision ENT ENT ED: Denies rhinorrhea or sore throat Cardiovascular Cardiovascular: Denies chest pain or palpitations Respiratory/Chest Respiratory/Chest: Denies cough or dyspnea Gastrointestinal Gastrointestinal: Reports nausea and vomiting Genitourinary Genitourinary ED: Denies dysuria or hematuria Musculoskeletal Musculoskeletal: Reports back pain; Denies neck pain Integumentary Denies abscess or rash Neurologic Neurologic: Denies headache(s) or weakness Allergic/Immunologic Allergic/Immunologic ED: Denies mouth swelling or urticaria EXAM Physical Exam Const Vital Signs: 04/20/21 12:24 Temperature 97.9 F Temperature Source Temporal Pulse Rate 89 Respiratory Rate 18 Blood Pressure 133/90 H Blood Pressure Mean 104 Pulse Ox 97 Oxygen Delivery Method Room Air Positive well nourished, well developed and obese General Appearance ED: well developed Nutritional Appearance: obese HEENT Reports moist mucous membranes Neck supple and no JVD Back/Spine Back/Spine Narrative: There is tenderness over the lumbar spine and paraspinal muscles bilaterally. There is no bony crepitance or step-off. Range of motion was limited in all motions of the lumbar spine secondary to pain. Strength is 5/5 bilaterally in lower extremities. Deep tendon reflexes are 2+/4 bilaterally in the lower extremities. Pedal pulses are equal bilaterally. There are no sensory deficits noted. Neuro oriented x3 and no sensory deficits noted Sensorium / Orientation: alert Motor Exam: strength 5/5 throughout and strength abnormal Deep Tendon Reflexes: Rt Patellar (L4): 2+, Lt Patellar (L4): 2+, Rt Ankle (S1): 2+ and Lt Ankle (S1): 2+ Deep Tendon Reflexes Back: Rt Patellar (L4): 2+, Lt Patellar (L4): 2+, Rt Ankle (S1): 2+ and Lt Ankle (S1): 2+ Psych mental status grossly normal MDM MDM MDM Narrative Medical decision making narrative: Patient was given injection of morphine here. X-rays of the lumbar spine were obtained. There are 3 views. On my interpretation, there is some disc base narrowing and spondylosis at L2-L3. There is no acute fracture. Radiologist also interpreted the x-rays and agrees. Patient was given a prescription for a short course of [place]. Patient was instructed to use ice to the area. Patient was instructed to follow-up with her primary care physician in 5 to 7 days. Patient understood and was agreeable with the plan. All questions were answered. Radiography X-Ray: LS SPine, Read by ED Physician, Read by Radiologist and Disk Space Narrowing Diagnostic Testing: Clinical Impression(s) from Imaging Studies Lumbar Spine X-Ray 04/20/21 15:00 IMPRESSION: Moderate degree of disc space narrowing and spondylosis at the L2-L3 level. Electronically Signed: Alex Motta MD at 15:25 EST , Service support , Discharge Plan Triage Chief Complaint: Back ED Provider: Matheus Krueger Dx/Rx/DC Orders Clinical Impression: Lumbar contusion Instructions: ED Back Contusion Prescriptions: New hydrocodone-acetaminophen [hydrocodone-acetaminophen] 1 TABLET tablet 1 tab PO Q6H PRN PRN (Reason: Pain) 3 Days Qty: 10 RF: 0 No Action testosterone cypionate 200 mg/mL oil 70 mg IM QWEEK RF: 0 orphenadrine citrate 100 mg tablet extended release 100 mg PO BID PRN (Reason: muscle spasm) Qty: 10 RF: 0 oxycodone-acetaminophen [Percocet] 5-325 mg tablet 1 tab PO Q6H PRN (Reason: pain) 3 Days Qty: 10 RF: 0 naproxen [Naprosyn] 500 mg tablet 500 mg PO BID PRN (Reason: pain) Qty: 20 RF: 0 dexamethasone [Decadron] 6 mg tablet 6 mg PO DAILY Qty: 10 RF: 0 albuterol sulfate [Ventolin HFA] 90 mcg/actuation HFA aerosol inhaler 1 - 2 puff inhalation Q4H PRN PRN (Reason: Wheezing) Qty: 1 RF: 0 promethazine-codeine 6.25-10 mg/5 mL syrup 5 ml PO Q6H PRN (Reason: cough) 7 Days Qty: 140 RF: 0 lidocaine [Lidoderm] 5 % adhesive patch,medicated 1 patch topical DAILY PRN (Reason: Pain) RF: 0 potassium chloride 20 mEq/15 mL liquid 20 meq PO BID Qty: 180 RF: 0 Referrals: Etelvina Luis [Other] - 3-5 Days Disposition Disposition: Home, Self Care
--- NOTE | 2021-04-20 15:00 | RAD_ITS ---
STUDY: X-RAY - LUMBAR SPINE REASON FOR EXAM: Female, 30 years old. Injury/Pain TECHNIQUE: 3 view(s) of the lumbar spine were obtained. COMPARISON: None FINDINGS: Normal lumbar lordosis. There is no substantial scoliosis. There is a normal alignment of the vertebrae. Moderate degree of disc space narrowing and spondylosis at the L2-L3 level. The soft tissue structures are unremarkable. RAD/Lumbar Spine 2 or 3 Views IMPRESSION: Moderate degree of disc space narrowing and spondylosis at the L2-L3 level. Electronically Signed: Alex Motta MD at 15:25 EST , Service support ,
[2021-04-20] MEDS: Morphine 4 MG/ML Syringe IM (15:16)
[2021-04-20 16:32] VITALS: BP 135/86; PULSE 75; RESP 16; O2SAT 97
== END 2021-04-20 16:32 | disposition home or self-care (01) ==
PROVIDERS: Emergency Provider Emergency Medicine
DX: S30.0XXA Contusion of lower back and pelvis, initial encounter (principal); W10.9XXA Fall (on) (from) unspecified stairs and steps, initial encounter; Y93.9 Activity, unspecified; Y92.9 Unspecified place or not applicable; Y99.9 Unspecified external cause status; M47.816 Spondylosis without myelopathy or radiculopathy, lumbar region; M48.061 Spinal stenosis, lumbar region without neurogenic claudication; E66.9 Obesity, unspecified; Z68.42 Body mass index [BMI] 45.0-49.9, adult
CPT/HCPCS: 72100; 96372; 99282

== ENCOUNTER 2021-10-03 14:07 | Emergency (ER) | payer SELFPAY ==
[2021-10-03 14:08] VITALS: BP 150/82; PULSE 89; RESP 18; TEMP 37.3; O2SAT 98; BMI 44.6
--- NOTE | 2021-10-03 14:19 | EDS_ITS ---
HPI <KENN Pruitt - Last Filed: 10/03/21 15:00> History of Present Illness Chief Complaint: Shortness of Breath Narrative Narrative: 31-year-old female with no past medical history presents with flulike symptoms that started yesterday. She has fever, chills, had nausea and vomiting yesterday morning that has resolved, is losing her voice, and has a dry cough. She also feels short of breath. No chest pain. She went to urgent care and they sent her here for evaluation. He has been able to eat and drink today. No abdominal pain or diarrhea. No blood in her vomit or stool. Her nephew was sick recently with a stomach bug. She states she last had COVID in April 2021. She does not smoke or have cardiopulmonary disease. PFSH <KENN Pruitt - Last Filed: 10/03/21 15:00> [facility] Medical History COVID-19 Transgender Allergy/AdvReac Type Severity Reaction Status Date / Time No Known Allergies Allergy Verified 10/03/21 14:09 Family History Mother Hypertension Surgical History History of knee surgery [place] teeth removed Social History household members: family Smoking Status: Former smoker alcohol intake: never substance use type: does not use additional social history: Lives with and 2 sons ROS <KENN Pruitt - Last Filed: 10/03/21 15:00> ROS ED ROS Narrative Constitutional: Positive for fever, chills, malaise. Eyes: Negative for visual change. ENT: Positive for sore throat, ear pain, rhinorrhea. CVS: Negative for palpitations, chest pain, syncope. Respiratory: Positive for shortness of breath, cough. Negative for orthopnea. GI: Positive for nausea, vomiting. Negative for abdominal pain, diarrhea, constipation, melena, hematochezia. : Negative for dysuria, hematuria or frequency. Neuro: Negative for headache, motor/sensory dysfunction. Skin: Negative for rash, abscess, or wound. Musc: Negative for joint pain, swelling, trauma. Heme: Negative for easy bruising, bleeding, lymphadenopathy. EXAM <KENN Pruitt - Last Filed: 10/03/21 15:00> Physical Exam Narrative Exam Narrative: CONST: Patient sitting in no acute distress. EYES: Normal inspection. ENT: Mild pharyngeal erythema with no tonsillar swelling or exudate, midline uvula, moist mucous membranes. NECK: Normal inspection. No lymphadenopathy or masses, trachea midline. RESP: No respiratory distress, faint expiratory wheeze right lower lobe, otherwise clear. CVS: Regular rate and rhythm, no murmur, no gallop. ABD: Soft and nontender, no guarding or rebound, nondistended, no hepatosplenomegaly. SKIN: Color normal, no rash, warm, dry, intact. EXTREMITIES: Normal appearance, no pedal edema. NEURO: Oriented x4. PSYCH: Normal affect. Const Vital Signs: 10/03/21 14:08 10/03/21 14:21 Temperature 99.1 F Temperature Source Temporal Pulse Rate 89 Respiratory Rate 18 Respiratory Effort Short of Breath Respiratory Depth Normal Respiratory Pattern Normal Blood Pressure 150/82 H Blood Pressure Mean 104 Pulse Ox 98 Oxygen Delivery Method Room Air Room Air <Dr. Kristy Ferrer DO - Last Filed: 10/03/21 15:01> Physical Exam Const Vital Signs: 10/03/21 14:08 10/03/21 14:21 Temperature 99.1 F Temperature Source Temporal Pulse Rate 89 Respiratory Rate 18 Respiratory Effort Short of Breath Respiratory Depth Normal Respiratory Pattern Normal Blood Pressure 150/82 H Blood Pressure Mean 104 Pulse Ox 98 Oxygen Delivery Method Room Air Room Air MDM <KENN Pruitt - Last Filed: 10/03/21 15:00> [facility] Narrative Medical decision making narrative: Patient presents with flu-like illness x 2 days. She appears well and nontoxic. She has a low-grade temperature 99.1 F, otherwise normal vital signs. 98% on room air. HEENT exam unremarkable. Heart is regular. Lungs had a very faint expiratory wheeze that resolved after coughing. Abdomen soft and nontender. Chest x-ray obtained and shows no acute process. COVID and flu testing is negative. She was treated symptomatically with ibuprofen and albuterol. I suspect a viral illness and with normal vitals she is stable for discharge home with continued symptomatic treatment and return precautions. 1. Viral syndrome Radiography Chest X-Ray - ED: 1 View, Read by ED Physician, Read by Radiologist, Unchanged, Normal, Heart, Lungs, Mediastinum, Bony Structures and No Acute Disease Diagnostic Testing: ED attending interpretation of mobile chest shows normal heart size, no acute infiltrate. <Dr. Kristy Ferrer, DO - Last Filed: 10/03/21 15:01> [facility] Narrative Medical decision making narrative: I have personally performed a face to face assessment of the patient and have reviewed the HAMIDA Note. I performed a substantive portion of the visit including all aspects of the following. My seth findings include: History is [patient with a cough that started yesterday. She complains of a mild sore throat. She denies fever. Patient does complain of some shortness of breath with activity. She denies sick contacts. She has not had the COVID- vaccine. Patient states she did have COVID in March of last year and had the antibody infusion. Patient has not had the influenza vaccine. Patient seen in urgent care and was referred to the emergency department.] Exam is [HEENT-PERRLA, EOMI. Cranial nerves II through XII grossly intact. TMs clear. Mucous membranes moist. No adenopathy. Cardiovascular-regular rate and rhythm without murmur or ectopy Lungs-clear to auscultation, chest wall stable without crepitus or subcu emphysema Abdomen-normoactive bowel sounds, soft, nontender, no rebound or rigidity, no peritoneal signs. Extremities-intact ?4, normal range of motion, normal pulses, atraumatic] Medical Decison Making [chest x-ray unremarkable. Patient had negative COVID and negative influenza screen. Suspect likely viral URI. She will be discharged with an inhaler. Patient advised to return if increasing shortness of breath or condition should worsen anyway. Patient otherwise to follow-up [facility] primary care physician in 3 to 5 days. Patient seen in conjunction with physician assistant professor of spanish.] Other additions or changes: [None] Radiography Diagnostic Testin view chest x-ray obtained interpreted by myself as no acute disease process. Radiology in agreement. Discharge Plan Triage Chief Complaint: Shortness of Breath ED Midlevel Provider: Odalys Cannon ED Provider: Kristy Ferrer Dx/Rx/DC Orders Clinical Impression: Acute viral syndrome Instructions: ED Viral Syndrome (Adult) Activity Restrictions/Additional Instructions: Your symptoms are consistent with a viral illness. Take Tylenol ibuprofen as needed every 6 hours. Rest and drink fluids. If your shortness of breath worsens come back to the ER. Disposition Disposition: Home, Self Care
[2021-10-03] MEDS: Ibuprofen 400 MG Tablet 800 MG PO (14:26)
--- NOTE | 2021-10-03 14:30 | RAD_ITS ---
STUDY: X-RAY CHEST REASON FOR EXAM: Female, 31 years old. cough TECHNIQUE: Single AP portable view of the chest. COMPARISON: 03/27/2021 FINDINGS: The lungs are clear and expanded. There is no demonstrated pleural abnormality. Normal size heart. Normal mediastinum and kristine. Normal visualized pulmonary arteries. Normal visualized aortic arch and descending thoracic aorta. Normal visualized thoracic spine. Normal visualized ribs, clavicles, and shoulders. There is no demonstrated abnormality of the visualized soft tissue structures of the upper abdomen. RAD/Chest 1 View (Portable) IMPRESSION: Normal x-ray examination of the chest. Electronically Signed: Jairo Barry MD at 15:16 EDT ,
[2021-10-03] MEDS: Albuterol Sulfate 8 gm Inhaler (60 puffs) 2 PUFF INHALATION (14:32)
== END 2021-10-03 15:04 | disposition home or self-care (01) ==
PROVIDERS: Emergency Provider Emergency Medicine; Visit Provider Emergency Medicine
DX: B34.9 Viral infection, unspecified (principal); R06.02 Shortness of breath; Z87.891 Personal history of nicotine dependence; Z86.16 Personal history of COVID-19; Z28.310 Unvaccinated for COVID-19; Z28.9 Immunization not carried out for unspecified reason
CPT/HCPCS: 71045; 87428; 99283

== ENCOUNTER 2022-02-26 07:38 | Outpatient (RCR) | payer BC, SELFPAY ==
--- NOTE | 2022-02-26 13:21 | HP.PTEVAL ---
Patient's Visit Information RADHA ARNOLD is a 31 year old F referred to Physical Therapy by Dr. Jac Corado MD with a diagnosis of INSTABILITY OF L PATELLOFEMORAL JOINT AND L KNEE PAIN. Date of Evaluation: 02/26/22 Physical Therapist: Karen Malin, PT, Cert MDT - Visit Plan Frequency: 2-3x /Week Duration: 4-6 Weeks Plan: *CHECK AUTH: RECORD # OF VISITS APPROVED AND EXPIRATION DATE. CHECK CODES APPROVED WITH POC*. L LE ROM, STRETCHING AND STRENGTHENING TO IMPROVE PATELLAR TRACKING INCLUDING QS'S, WALL SLIDES, 4 WAY SLR'S AND OTHERS TOLERATED. US AND ICE NEEDED. 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 Disability: NO. Present symptoms: L MEDIAL KNEE PAIN. INTERMITTENT NUMBNESS DOWN INSIDE OF LEG TO INSIDE OF FOOT. CONSTANT WIERD FEELING ON INSIDE OF KNEE THAT HAS BEEN CONSTANT SINCE SURGERY SEVERAL YEARS AGO. GRINDING IN L KNEE. L LEG WEAKNESS - KNEE GIVES OUT WHEN KNEE CAP SLIDES OUT TO THE LEFT. Present since: FEB 21 2022 KNEE CAP WENT OUT. PRIOR TO THAT SHE FELT LIKE SHE WAS 100%. SHE COULD RUN, JUMP AND PLAY SOFTBALL. Pain Scale: WORST 20/10, LEAST 2/10. Currently: 11/29. Commenced as a result of: GOT OUT OF MOM'S VAN AND KNEE CAP DISLOCATED WHEN STEPPED DOWN. ALSO WENT OUT WHILE SLEEPING TUESDAY NIGHT. Worse: STEPS, STANDING AND WALKING. WALKING IS REALLY PAINFUL. EVEN SITTING. GOING UP AND DOWN STEPS CAUSES NAUSEA BECAUSE OF THE PAIN. Better: FREQUENT CHANGE OF POSITION. PROPPING IT UP IN SITTING AND LYING. Disturbed sleep: YES. Previous history/Previous treatment: MPFL SX BY DR. BLISS ABOUT 4 YEARS AGO. Treatment this episode: KNEE BRACE. PERCOCET. NAPROXEN. Gait: LIMPING ON L LE. PAINFUL. KNEE GIVES OUT. Accidents: NO. Unexplained weight loss: NO. Imaging: RECENT KNEE X-RAY - ARTHRITIS PER PATIENT AND KNEE CAP IS BACK IN PLACE. DONE AT ED IN [place]. MRI HAS BEEN ORDERED. PMH/Recent major surgery: STARTED HAVING L KNEE PROBLEMS TEENAGER. R KNEE PAIN. OTHER: STATES DR. CORADO TOLD HER TO GET A KNEE BRACE. WAS IN KNEE IMMOBILIZER FROM ED [facility] AFTER DISLOCATION PRIOR TO CURRENT COMPRESSION SLEEVE AND KNEE BRACE WEARING NOW. - Objective GAIT: THIS PATIENT AMBULATES INDEP'LY INTO PT TODAY WITHOUT ANY AD'S, ANTALGIC AND A MILD LIMP ON THE LLE. DECREASED L KNEE FLEX DURING GAIT. TU.36 SEC. Girth L Patella 42 cm (COMPARED TO R 40.5 CM). L knee flexion AROM: 97 degress (IN SUPINE WITH A HEEL SLIDE). L knee ext AROM: FULL. L knee flex MMT; 3-/5. L knee ext MMT 3+/5. L hip MMT 4/5. R MMT: HIP/KNEE/ANKLE 5/5. Sensory deficit: ALTERED LIGHT TOUCH SENSATION OF L MEDIAL KNEE COMPARED TO RIGHT. Palpation: TENDERNESS THROUGHOUT L KNEE. TREATMENT: INSTRUCTED PATIENT IN LAQ'S, QS'S, SLR'S AND HEEL SLIDES TOLERATED. SHE REPORTS SHE BEEN DOING THESE ALREADY BECAUSE IT GETS STIFF AND FEELS BETTER TO MOVE IT. ENCOURAGED CONTINUED GENTLE EX X 10, 3 TIMES A DAY AND HOLDING QS X 5 SEC EA. SHE REPORTS DOCTOR MAK TOLD HER SHE CAN STOP USING THE CRUTCHES (ORDERED IN ED) AND SWITCH TO J BRACE FROM LONG LEG SPINT AND TO JUST TAKE IT EASY. MRI ORDERED PER PATIENT REPORT. - Balance/Special Test Scores Lower Extremity Functional Score: 24 - Goals Goal 1:: DECREASE INCIDENCE OF L PATELLAR DISLOCATION Goal Time Frame: 4-6 Weeks Goal 2:: INCREASE FUNCTIONAL ROM OF LEFT KNEE TO EASE ADL'S Goal Time Frame: 4-6 Weeks Goal 3:: IMPROVE FUNCTINAL STRENGTH OF LEFT KNEE TO NORMALIZE GAIT Goal Time Frame: 4-6 Weeks Goal 4:: DECREASE C/O L KNEE PAIN Goal Time Frame: 4-6 Weeks Goal 5:: PATIENT WILL BE INDEP WITH A HEP FOR CONTINUED IMPROVEMENT ONCE FORMAL PHYSICAL THERAPY CONCLUDES. Goal Time Frame: 4-6 Weeks - Anticipated Interventions Patient/Client Instruction: Educate patient on: Condition, Plan of Care, Risk Factors For the Purpose of:: To improve self management Therapeutic Exercise to Include: Strength training, Flexibilty training, Gait and locomotor training, Neuromotor development, In an aquatic setting For the Purpose of:: To decrease pain, To increase ROM, To improve muscle performance and motor function, To increase tolerance to activity/condition/position, To improve ability of physical actions for home/community/work/leisure, To improve gait and locomotor functions Cryotherapy (ice pack, ice massage): Yes Ultrasound (thermal/non thermal): Yes For the Purpose of:: To decrease pain, To improve nutrient delivery to tissue Thank you for the opportunity to evaluate your patient. For Medicare and Medicare HMO plans, please review the plan of care and approve it. It will need to be FAXED BACK to us at [phone] for Medicare purposes. For Medicare only, by signing this I certify the plan of care. Please let me know if there are questions or concerns regarding this plan of care. Physician Signature: Date:
--- NOTE | 2022-03-18 15:10 | HP.PTDCSUM ---
It has been my pleasure to treat RADHA ARNOLD referred by Dr. Jac Kelley MD, with the diagnosis of INSTABILITY OF L PATELLOFEMORAL JOINT AND L KNEE PAIN for a total of 1 visit(s). Discharge Date: Please see the following information for a summary of their discharge status. Goal 1:: DECREASE INCIDENCE OF L PATELLAR DISLOCATION Goal 2:: INCREASE FUNCTIONAL ROM OF LEFT KNEE TO EASE ADL'S Goal 3:: IMPROVE FUNCTINAL STRENGTH OF LEFT KNEE TO NORMALIZE GAIT Goal 4:: DECREASE C/O L KNEE PAIN Goal 5:: PATIENT WILL BE INDEP WITH A HEP FOR CONTINUED IMPROVEMENT ONCE FORMAL PHYSICAL THERAPY CONCLUDES. Plan: *CHECK AUTH: RECORD # OF VISITS APPROVED AND EXPIRATION DATE. CHECK CODES APPROVED WITH POC*. L LE ROM, STRETCHING AND STRENGTHENING TO IMPROVE PATELLAR TRACKING INCLUDING QS'S, WALL SLIDES, 4 WAY SLR'S AND OTHERS TOLERATED. US AND ICE NEEDED. If there are questions or concerns regarding this patient's physical therapy, please feel free to call me at [phone]. Thank you for the referral of this patient. Sincerely, Karen Malin, PT, Cert MDT Balance/Gait/Functional tests - Balance/Special Test Scores Lower Extremity Functional Score: 24
== END 2022-02-26 19:00 | disposition home or self-care (01) ==
LOC: PT 07:38
PROVIDERS: Referring Provider Orthopaedic Surgery Sports Medicine; Visit Provider Orthopaedic Surgery Sports Medicine
DX: M25.362 Other instability, left knee (principal); M25.562 Pain in left knee
CPT/HCPCS: 97161; 97162; 97530

== ENCOUNTER 2022-11-17 20:59 | Emergency (ER) | payer SELFPAY ==
[2022-11-17 21:00] VITALS: BP 148/89; PULSE 88; RESP 18; TEMP 36.6; O2SAT 98
[2022-11-17 21:12] VITALS: BMI 41.8
[2022-11-17] MEDS: Ondansetron 4 MG/2 ML Vial IV (21:29)
[2022-11-17 22:26] VITALS: PULSE 68; RESP 16; O2SAT 96
--- NOTE | 2022-11-17 22:36 | EDS_ITS ---
HPI History of Present Illness Chief Complaint: Chest Pain Detail of Chief Complaint: Ago and left-sided chest pain Informant: patient Onset/Context/Timing Onset: Today (Vertigo occurred earlier in the day and was transient. Had another episode and reason she presents. She also is complaining of chest tightness with the vertigo. This occurred several months ago as well.) Context: Sudden Onset Timing: Intermittent Quality: Spinning sensation, lightheadedness and chest discomfort Location: Not applicable and left side of chest Current Severity: Gone (Vertigo is gone. Chest discomfort is still present) Maximum Severity: Severe Worsened by: Movement of head Relieved by: Stretching out because of the chest pain to resolve. Associated Symptoms Associated Symptoms: Nausea otherwise negative Narrative Narrative: Sent in a 32-year-old woman who presents with vertigo that started abruptly this morning and this evening. She presents because of recurrent vertigo with chest tightness. This occurred several months ago. She was told she had benign positional vertigo. She was told the cause of her chest pain is unknown. She denies recent upper respiratory viral-like symptoms. She denies headache. She denies blurred vision. She did have double vision with the vertigo. She denies neck pain or neck stiffness. She denies shortness of breath, cough, pleuritic chest pain. She endorses nausea without vomiting diarrhea. She denies dysuria, frequency, urgency or hematuria. She is on no hormonal therapy. Prior similar symptoms: Yes Recent Illness/Hospitalization: No PFSH PFSH Medical History COVID-19 Instability of left patellofemoral joint Left knee pain Transgender Home Medications acetaminophen 325 mg tablet (Tylenol) 325 mg PO ONCE PRN pain 04/19/22 [History Last Taken Unknown] Allergy/AdvReac Type Severity Reaction Status Date / Time diethyltoluamide AdvReac NEEDS Verified 11/17/22 21:04 FOLLOW-UP Family History Mother Hypertension Surgical History History of knee surgery [place] teeth removed Social History household members: family Smoking Status: Former smoker Smokeless tobacco user: chewing tobacco alcohol intake: never substance use type: does not use additional social history: Lives with and 2 sons ROS ROS ED Constitutional Constitutional ED: Denies chills, fever(s), subjective, sweats or weight loss Eyes Eyes: Reports blurry vision bilateral and diplopia; Denies change in vision ENT ENT ED: Denies ear pain, rhinorrhea or sore throat Cardiovascular Cardiovascular: Reports chest pain; Denies orthopnea, palpitations, paroxysmal nocturnal dyspnea or racing heartbeat Respiratory/Chest Respiratory/Chest: Denies cough, dyspnea, dyspnea on exertion, orthopnea or paroxysmal nocturnal dyspnea Gastrointestinal Gastrointestinal: Reports nausea; Denies abdominal pain, constipation, diarrhea, melena or vomiting Genitourinary Genitourinary ED: Denies dysuria, hematuria or urinary frequency Musculoskeletal Musculoskeletal: Denies arthralgias, back pain, myalgias or neck pain Integumentary Denies rash Neurologic Neurologic: Denies headache(s), paresthesias or weakness Psychiatric Psychiatric: Denies anxiety Endocrine Endocrinology: Denies cold intolerance or heat intolerance Hematologic/Lymphatic Hematologic/Lymphatic: Reports systems reviewed and no addt'l complaints, except as documented EXAM Physical Exam Const Vital Signs: 11/17/22 21:00 11/17/22 21:12 11/17/22 22:26 Temperature 97.9 F Temperature Source Temporal Pulse Rate 88 68 Respiratory Rate 18 16 Respiratory Effort Short of Breath Blood Pressure 148/89 H Blood Pressure Mean 108 Pulse Ox 98 96 Oxygen Delivery Method Room Air Room Air Positive well nourished and well developed General Appearance ED: well developed and NAD; Negative for cyanotic, singh phoretic or pallor HEENT Reports moist mucous membranes HEENT Narrative: Head is atraumatic normocephalic. TMs normal. Ears normal. Nares patent. Posterior pharynx is normal. Uvula is midline. There is no deviation tongue with protrusion. Eyes PERRL and EOMs intact bilaterally Eyes Narrative: There is no nystagmus with central gaze. There is no APD. General Eye ED: Negative for pale conjunctiva or scleral icterus Neck no lymphadenopathy, supple and no JVD Chest Wall inspection of chest normal and palpation of chest normal Resp normal respiratory effort and clear to auscultation bilaterally Cardio regular rate, regular rhythm, S1 normal heart sound, S2 normal heart sound and no murmurs GI normal to inspection, nondistended, normoactive bowel sounds, non-tender, non- distended and no masses; Negative for hepatosplenomegaly Auscultation: normoactive bowel sounds Palpation: soft Back/Spine no CVA tenderness Extremity normal to inspection General Extremety ED: Negative for edema or tenderness General Extremity: Negative for edema Neuro oriented x3, CN's II-XII intact bilaterally and no sensory deficits noted Neuro Narrative: There is no dysmetria. Gait was observed and normal. There is no ataxia. The eye askew test and hand test were both negative. Corcoran-Hallpike was positive worse on left than right. Sensorium / Orientation: alert and orientation impaired Motor Exam: strength 5/5 throughout Psych mental status grossly normal Skin no rashes or lesions noted and no wounds General Skin Exam: Negative for elasticity normal, jaundice or pallor MDM MDM MDM Narrative Medical decision making narrative: Patient's symptoms are consistent with paroxysmal benign positional vertigo patient has reproducible chest pain and suspect this is musculoskeletal. EKG was obtained per nurse protocol which revealed a normal sinus rhythm and a rate of 78. Patient is PERC negative. With a nonfocal neurologic exam and a positive Corcoran-Hallpike maneuver Santana maneuver was performed. Patient had no symptoms. She states she was lying on her right side waiting for me to perform the test and her symptoms resolved. EKG Initial EKG: Attestation: I personally reviewed and interpreted this EKG as follows: Interpretation: Sinus Rhythm (Rate is 78. CT interval is 186 ms. Cures duration 88 ms. QT duration 380 ms. [place] is normal. There is artifact that the computer is reading as T wave abnormality.) Discharge Plan Triage Chief Complaint: Chest Pain ED Provider: Carlo Hernandez Dx/Rx/DC Orders Clinical Impression: Benign paroxysmal positional vertigo of left ear, Left-sided chest wall pain Instructions: ED BPV Vertigo, ED Chest Wall Pain, Costochondritis Prescriptions: No Action acetaminophen [Tylenol] 325 mg tablet 325 mg PO ONCE PRN (Reason: pain) Primary Care Provider: Brandon Dotson NP Referrals: Brandon Dotson NP, HEATING SYSTEMS INSTALLER-C [Primary Care Provider] - 3-5 Days if not improving Disposition Disposition: Home, Self Care
[2022-11-17 22:53] VITALS: PULSE 68; RESP 16
--- NOTE | 2022-11-17 23:14 | EKG12_ITS ---
Test Reason : CP Blood Pressure : / mmHG Vent. Rate : 078 BPM Atrial Rate : 078 BPM P-R Int : 186 ms QRS Dur : 088 ms QT Int : 380 ms P-R-T Axes : 024 023 -01 degrees QTc Int : 433 ms Normal sinus rhythm with sinus arrhythmia T wave abnormality, consider inferior ischemia Abnormal ECG Confirmed by OC CHIRINOS, NATALIE ([id number]), design editor JONNY MARSHALL ([id number]) on 11/18/2022 10:45:41 AM Referred By: SOFI Confirmed By:NATALIE RENAE MD
== END 2022-11-17 22:54 | disposition home or self-care (01) ==
PROVIDERS: Emergency Provider Emergency Medicine; PCP Nurse Practitioner Primary Care; Visit Provider Emergency Medicine
DX: H81.12 Benign paroxysmal vertigo, left ear (principal); R07.89 Other chest pain; F64.0 Transsexualism; F17.220 Nicotine dependence, chewing tobacco, uncomplicated; Z86.16 Personal history of COVID-19
CPT/HCPCS: 93005; 96374; 99283; A4216; J2405

== ENCOUNTER 2023-01-21 19:51 | Emergency (ER) | payer SELFPAY ==
[2023-01-21 19:52] VITALS: BP 147/77; PULSE 97; RESP 18; TEMP 36.1; O2SAT 99
--- NOTE | 2023-01-21 22:43 | ED.RN ---
called for pt in waiting room. no response.
== END 2023-01-21 22:45 | disposition left against medical advice (07) ==
LOC: ED 22:47
PROVIDERS: PCP Nurse Practitioner Primary Care
DX: Z53.21 Procedure and treatment not carried out due to patient leaving prior to being seen by health care provider (principal)

== ENCOUNTER 2023-02-28 17:23 | Emergency (ER) | payer SELFPAY ==
[2023-02-28 17:25] VITALS: BP 146/119; PULSE 98; RESP 18; TEMP 36.4; O2SAT 98; BMI 45.3
--- NOTE | 2023-02-28 17:36 | RAD_ITS ---
STUDY: X-RAY - LEFT KNEE REASON FOR EXAM: Female, 32 years old. injury TECHNIQUE: 4 view(s) of the knee. COMPARISON: None. FINDINGS: Mild osteophytosis of the distal femur, otherwise normal visualized distal femur. Normal visualized proximal tibia and fibula. There is mild arthrosis of the proximal tibiofibular articulation. There is no demonstrated fracture. There is minimal degenerative arthrosis of the medial femorotibial compartment. Normal lateral femorotibial compartment. There is mild degenerative arthrosis of the patellofemoral articulation. Minimal joint effusion. The soft tissue structures are unremarkable. RAD/Knee 4 or More Views IMPRESSION: Mild degenerative disease as described with minimal joint effusion. No acute fracture or subluxation. Electronically Signed: Melissa Harrison MD at 18:21 EDT ,
--- NOTE | 2023-02-28 17:36 | RAD_ITS ---
STUDY: X-RAY - RIGHT WRIST REASON FOR EXAM: Female, 32 years old. injury TECHNIQUE: 3 view(s) of the wrist were obtained. COMPARISON: None. FINDINGS: Normal visualized distal radius and ulna. Normal radiocarpal articulation. Normal distal radioulnar articulation. Normal carpal bones. Normal carpal articulations. Normal carpometacarpal articulation of the thumb. Normal second through fifth carpometacarpal articulations. Normal visualized metacarpal bones. The soft tissue structures are unremarkable. There is no demonstrated acute fracture. RAD/Wrist min 3 Views IMPRESSION: Normal x-ray examination of the wrist. Electronically Signed: Melissa Harrison MD at 18:21 EDT ,
--- NOTE | 2023-02-28 17:37 | EDS_ITS ---
HPI HPI - Fall History of Present Illness Chief Complaint: Fall Informant: patient Occured/Mechanism Occurred: Today Narrative Narrative: Patient presents after falling down 10 steps at home. She states that she had just gotten up and taken a shower. She lost her balance, and on the steps and fell down approximate 10 steps. She believes her left kneecap dislocated and then relocated. This is a chronic problem for the patient and she has had prior knee surgery. She also complains of some right wrist pain and lower back pain. She did not lose consciousness. She is not on blood thinners. PFSH PFSH Medical History COVID-19 Instability of left patellofemoral joint Left knee pain Transgender Home Medications acetaminophen 325 mg tablet (Tylenol) 325 mg PO ONCE PRN pain 04/19/22 [History Last Taken Unknown] hydrocodone-acetaminophen 5-325mg 5mg-325mg 1 tab PO Q6H PRN PRN Pain 3 days #10 TABLETS 02/28/23 [Rx Last Taken Unknown] naproxen 500 mg tablet (Naprosyn) 500 mg PO BID PRN pain #20 tabs 02/28/23 [Rx Last Taken Unknown] Allergy/AdvReac Type Severity Reaction Status Date / Time diethyltoluamide AdvReac NEEDS Verified 02/28/23 17:25 FOLLOW-UP Family History Mother Hypertension Surgical History History of knee surgery [place] teeth removed Social History household members: family Smoking Status: Former smoker Smokeless tobacco user: chewing tobacco alcohol intake: never substance use type: does not use additional social history: Lives with and 2 sons ROS ROS ED Constitutional Constitutional ED: Denies chills or fever(s) Eyes Eyes: Denies discharge from eye(s) ENT ENT ED: Denies discharge from eye(s), rhinorrhea or sore throat Cardiovascular Cardiovascular: Denies chest pain or palpitations Respiratory/Chest Respiratory/Chest: Denies cough or dyspnea Gastrointestinal Gastrointestinal: Denies abdominal pain, nausea or vomiting Musculoskeletal Musculoskeletal: Reports back pain and extremity pain Integumentary Denies Abrasions or rash Neurologic Neurologic: Denies headache(s) or weakness Psychiatric Psychiatric: Denies anxiety or depression Allergic/Immunologic Allergic/Immunologic ED: Denies lip swelling or urticaria EXAM Physical Exam Const Vital Signs: 02/28/23 17:25 02/28/23 17:32 Temperature 97.5 F L Temperature Source Temporal Pulse Rate 98 Respiratory Rate 18 Respiratory Effort Normal Respiratory Depth Normal Respiratory Pattern Normal Blood Pressure 146/119 H Blood Pressure Mean 128 Pulse Ox 98 Oxygen Delivery Method Room Air Room Air Positive well nourished and well developed General Appearance ED: well developed Eyes EOMs intact bilaterally Neck no lymphadenopathy Chest Wall inspection of chest normal and palpation of chest normal Resp normal respiratory effort and clear to auscultation bilaterally Cardio regular rate and regular rhythm GI non-tender Palpation: soft Extremity Extremity Narrative: Mild tenderness to palpation on the right wrist. Good range of motion with no obvious deformity. Good cap refill and sensation. No tenderness at the elbow or shoulder. Left lower extremity examination reveals 2 linear abrasions of the left anterior knee. Ligaments are stable on testing. No evidence of patellar dislocation on exam. Neuro oriented x3 and moves all extremities Psych mental status grossly normal Skin Skin Narrative: Knee abrasions as noted above. MDM MDM MDM Narrative Medical decision making narrative: Patient given naproxen for pain. X-rays of the lumbar spine obtained along with right wrist and left knee. Radiography Diagnostic Testing: Clinical Impression(s) from Imaging Studies Knee X-Ray 02/28/23 17:36 IMPRESSION: Mild degenerative disease as described with minimal joint effusion. No acute fracture or subluxation. Electronically Signed: Melissa Harrison MD at 18:21 EDT Reading Location ID and State: [employer] [facility] [employer] , Service support , Wrist X-Ray 02/28/23 17:36 IMPRESSION: Normal x-ray examination of the wrist. Electronically Signed: Melissa Harrison MD at 18:21 EDT , Lumbar Spine X-Ray 02/28/23 17:56 IMPRESSION: Minor spondylosis/degenerative disease, more significant at L5-S1. Otherwise no acute fracture or spondylolisthesis. Electronically Signed: Melissa Harrison MD at 18:23 EDT , Treatment and Re-Evaluation Narrative: X-rays of the right wrist per my interpretation reveal no evidence of bony fracture. Radiology interpretation is reviewed and agrees. X-rays of the left knee per my interpretation reveal no fracture or dislocation. Radiology interpretation reviewed and agrees. X-rays of lumbar spine per my interpretation reveals no displacement. Chronic changes noted. Radiology interpretation reviewed and does reveal minor degenerative changes. Test results discussed with the patient. She be given a dose of [place] here and a prescription for short course of [place] at home. She is written off work today. Discharge Plan Triage Chief Complaint: Fall ED Provider: Jalyn Lynch Dx/Rx/DC Orders Clinical Impression: Back contusion, Fall, Contusion of knee, left, Sprain of right wrist Instructions: ED Back Contusion, ED Contusion, Lower Extremity, ED Mechanical Fall, ED Wrist Sprain Prescriptions: New hydrocodone-acetaminophen 5-325 mg tablet 1 tab PO Q6H PRN PRN (Reason: Pain) 3 Days Qty: 10 0RF naproxen [Naprosyn] 500 mg tablet 500 mg PO BID PRN (Reason: pain) Qty: 20 0RF No Action acetaminophen [Tylenol] 325 mg tablet 325 mg PO ONCE PRN (Reason: pain) Stand Alone Forms: ED Work / School Excuse Primary Care Provider: Care Physician,No Primary Referrals: Jac Kelley MD [Med Staff - Active Staff] - 1 Week if not improving Brandon Dotson NP, COMB TENDER-C [Non-Staff] - Disposition Disposition: Home, Self Care
[2023-02-28] MEDS: Naproxen 500 MG Tablet PO (17:44)
--- NOTE | 2023-02-28 17:56 | RAD_ITS ---
STUDY: X-RAY - LUMBAR SPINE REASON FOR EXAM: Female, 32 years old. injury TECHNIQUE: 3 view(s) of the lumbar spine were obtained. COMPARISON: None FINDINGS: Normal lumbar lordosis. There is no substantial scoliosis. There is a normal alignment of the vertebrae. There is mild, multilevel endplate spondylosis of the lumbar vertebrae. Mild degenerative narrowing of disc height at L5-S1, otherwise normal disc space heights. There is no demonstrated fracture. The soft tissue structures are unremarkable. RAD/Lumbar Spine 2 or 3 Views IMPRESSION: Minor spondylosis/degenerative disease, more significant at L5-S1. Otherwise no acute fracture or spondylolisthesis. Electronically Signed: Melissa Harrison MD at 18:23 EDT ,
[2023-02-28] MEDS: HYDROcodone Bitartrate/Apap 5/325 Tablet PO (19:03)
== END 2023-02-28 19:10 | disposition home or self-care (01) ==
PROVIDERS: Emergency Provider Emergency Medicine; Visit Provider Emergency Medicine
DX: S20.229A Contusion of unspecified back wall of thorax, initial encounter (principal); S80.02XA Contusion of left knee, initial encounter; S63.91XA Sprain of unspecified part of right wrist and hand, initial encounter; W10.9XXA Fall (on) (from) unspecified stairs and steps, initial encounter; Z86.16 Personal history of COVID-19; Z87.891 Personal history of nicotine dependence
CPT/HCPCS: 72100; 73110; 73564; 99282

== ENCOUNTER 2023-03-12 20:04 | Emergency (ER) | payer SELFPAY ==
[2023-03-12 20:04] VITALS: BP 127/115; PULSE 84; RESP 15; TEMP 36.5; O2SAT 98
[2023-03-12 20:23] VITALS: BMI 46.5
--- NOTE | 2023-03-12 20:31 | RAD_ITS ---
STUDY: X-RAY - LEFT KNEE REASON FOR EXAM: Female, 32 years old. pain TECHNIQUE: 4 view(s) of the knee. COMPARISON: 02/28/2023 FINDINGS: Normal visualized distal femur. Normal visualized proximal tibia and fibula. Normal proximal tibiofibular articulation. There is mild degenerative arthrosis of the medial femorotibial compartment. There is mild degenerative arthrosis of the lateral femorotibial compartment. There is mild degenerative arthrosis of the patellofemoral articulation. The soft tissue structures are unremarkable. RAD/Knee 4 or More Views IMPRESSION: Degenerative arthrosis. Electronically Signed: Jairo Barry MD at 20:47 EDT ,
--- NOTE | 2023-03-12 20:32 | EDS_ITS ---
HPI History of Present Illness Chief Complaint: Lower Extremity Injury Narrative Narrative: 32-year-old female past medical history of prior patellar tendon reconstruction secondary to recurrent patella dislocation presents with left knee pain and multiple dislocations of her left patella that she has had while walking today. She states it happened again 4 times, however this time while she usually has a lateral dislocation that she can reduce herself, the last time it happened toda y, her patella went medially. She now has pain that is worse with walking. She relates history that she had tendon reconstructive surgery approximately 5 to [address] Hastings. She had been referred by [facility] to [facility] who did the surgery here at the hospital. She was told at that time, that the type of surgery that was performed might only last her 5 to 6 years, and that she may require knee replacement. She presents because of the frequent dislocations pain in her left knee. PFSH [facility] Medical History COVID-19 Instability of left patellofemoral joint Left knee pain Transgender Home Medications acetaminophen 325 mg tablet (Tylenol) 325 mg PO ONCE PRN pain 04/19/22 [History Last Taken Unknown] Allergy/AdvReac Type Severity Reaction Status Date / Time diethyltoluamide AdvReac NEEDS Verified 03/12/23 20:09 FOLLOW-UP Family History Mother Hypertension Surgical History History of knee surgery [place] teeth removed Social History household members: family Smoking Status: Former smoker Smokeless tobacco user: chewing tobacco alcohol intake: never substance use type: does not use additional social history: Lives with and 2 sons ROS ROS ED ROS Narrative Constitutional: No fever, no chills. HEENT: No sore throat. No neck pain. No loss of vision. No rhinorrhea. Cardiovascular: No chest pain. No palpitations. No pedal edema. Respiratory: No cough, no shortness of breath. Abdominal: No abdominal pain. No nausea. No vomiting. Genitourinary: No dysuria. No hematuria. Musculoskeletal: No myalgias. Left knee pain, and frequent dislocation of left patella. Neurologic: No headaches. No dizziness. No lightheadedness. Skin: No rash. No change in color. Psychiatric: No depression. No anxiety. EXAM Physical Exam Narrative Exam Narrative: Afebrile. Vital signs noted. HEENT: Normocephalic. Atraumatic. PERRL, EOMI. Neck soft and supple. No point tenderness or step off. Cardiovascular: Regular rate and rhythm. No murmurs, rubs, or gallops appreciated. Respiratory: No tachypnea. Lungs clear to auscultation bilaterally. Gastrointestinal: Abdomen soft, nontender, with normoactive bowel sounds. No rebound or guarding. Neurological: Awake. Alert. Nonfocal, nonlateralizing. Skin: No rash. Normal color. No pallor. Musculoskeletal: No pedal edema. Full range of motion extremities. Flexion and extension of left knee intact. Able to raise left leg off bed without difficulty. Neurovascular intact distally with palpable dorsalis pedis pulse. Slight popping of patella on flexion and extension of left knee. Const Vital Signs: 03/12/23 20:04 Temperature 97.7 F L Temperature Source Temporal Pulse Rate 84 Respiratory Rate 15 Blood Pressure 127/115 H Blood Pressure Mean 119 Pulse Ox 98 Oxygen Delivery Method Room Air MDM MDM MDM Narrative Medical decision making narrative: I reviewed the patient's prior record and she did have patellar tendon reconstructive surgery. X-rays will be obtained of the left knee and 4 views. She will also be placed in a knee immobilizer and given crutches. I interpreted her x-rays of her left knee and 4 views and see no evidence of acute fracture or dislocation. She was placed in a knee immobilizer, given crutches and can be weightbearing as tolerated. She will follow-up with orthopedics, she was given the number to the orthopedic surgeon on-call today, Dr. Julio César bee. I do not feel that she requires observation or admission. She was given a note to be off work for the next 2 days as well. Disposition is discharged home in stable condition. Return instructions to the emergency department were reviewed. History & Record Review Discussion w/independent historian: Patient Radiography Diagnostic Testing: Clinical Impression(s) from Imaging Studies Knee X-Ray 03/12/23 20:31 IMPRESSION: Degenerative arthrosis. Electronically Signed: Jairo Barry MD at 20:47 EDT , Discharge Plan Triage Chief Complaint: Lower Extremity Injury ED Provider: Washington Landaverde Dx/Rx/DC Orders Clinical Impression: Instability of left patellofemoral joint, Closed patellar dislocation Instructions: ED Patellar Dislocation/Subluxation Prescriptions: No Action acetaminophen [Tylenol] 325 mg tablet 325 mg PO ONCE PRN (Reason: pain) Stand Alone Forms: ED Work / School Excuse Primary Care Provider: Care Physician,No Primary Referrals: Julio César Bee DO [Med Staff - Active Staff] - 2 Days Care Physician,No Primary [Primary Care Provider] - Disposition Disposition: Home, Self Care
== END 2023-03-12 21:20 | disposition home or self-care (01) ==
PROVIDERS: Emergency Provider Emergency Medicine; Visit Provider Emergency Medicine
DX: M25.362 Other instability, left knee (principal); S83.005A Unspecified dislocation of left patella, initial encounter; F64.0 Transsexualism; Z86.16 Personal history of COVID-19; Z87.891 Personal history of nicotine dependence; X58.XXXA Exposure to other specified factors, initial encounter
CPT/HCPCS: 73564; 99284

== ENCOUNTER 2023-05-25 13:06 | Emergency (ER) | payer SELFPAY ==
[2023-05-25 13:07] VITALS: BP 131/76; PULSE 74; PULSE 79; RESP 18; RESP 22; TEMP 36.6; O2SAT 96; BMI 47.2
[2023-05-25 13:44] VITALS: O2SAT 96
--- NOTE | 2023-05-25 13:59 | RAD_ITS ---
HISTORY: chest pain. TECHNIQUE: XR Chest 1 View. COMPARISON: 10/03/2021. FINDINGS: CARDIOMEDIASTINAL BORDERS: Cardiac silhouette within normal limits in size. Mediastinal contour unremarkable. LUNGS: Radiographically clear. PLEURA: No pleural effusion or pneumothorax seen. OSSEOUS STRUCTURES: Unremarkable. RAD/Chest 1 View (Portable) IMPRESSION: No acute cardiopulmonary process identified. Electronically Signed: Radha Davis MD at 15:01 EST ,
[2023-05-25 14:01] LABS: Absolute Lymphocyte Count 2.59 X10^3/uL (0.83-4.51); Absolute Neutrophil Count 7.7 X10^3/uL (2.0-7.7); Basophil# 0.05 X10^3/uL; Basophil% 0.4 % (0-1); Eosinophil# 0.22 X10^3/uL; Hematocrit 39.4 % (37-47); Hemoglobin 12.6 g/dL (12.0-15.0); Lymphocyte # 2.59 X10^3/ul (0.83-4.51); Lymphocyte % 23.1 % (19-41); Mean Corpuscular Hgb 27.2 pg (27.0-32.0); Mean Corpuscular Volume 85.1 fL (81-99); Mean Platelet Vol. 8.6 fl (6.2-12.0); Monocyte# 0.59 X10^3/uL; Monocyte% 5.3 % (0-10); NRBC Flagged by Analyzer 0 % (0-5); Neutrophil # 7.69 X10^3/uL (2.7-7.7); Neutrophil % 68.7 % (47-70); Platelet Count 388 K/mm3 (150-450); RBC Distribution Width CV 12.8 % (11.6-14.6); RBC Distribution Width SD 39.5 fl (35.1-43.9); Red Blood Count 4.63 M/mm3 (4.2-5.4); White Blood Count 11.2 K/mm3 (4.4-11.0)
--- NOTE | 2023-05-25 14:04 | ED.VIS.CHEST ---
HPI History of Present Illness Chief Complaint: Chest Pain Informant: patient Narrative Narrative: Patient presents with chest pain. Patient had an episode of chest pain on Tuesday. She was seen at her home in [facility]. Sounds like she had blood work x-ray done. She was admitted overnight. She had a stress test that was reportedly normal. She was going to follow-up with cardiology but no therapy was started. She did not know what was the actual cause of her pain. Last night she had some reflux. She had an acid taste in her mouth with some discomfort in her throat. But then today she had some sharper pain in her mid chest. It kind of radiates toward her shoulder and sometimes that shoots down her left arm. It sounds like it is brief. But she did not get nausea or vomiting with this. She did not get diaphoretic. She sometimes states she feels short of breath. No known family history of heart disease but her father young in an auto accident. No other known heart disease. No history of diabetes high blood pressure or high cholesterol. She has no history of recent travel surgery immobilization personal or family history of DVT or PE or leg pain or swelling. Although she is transgender she denies being on any hormone therapy at this time. [facility] Medical History COVID-19 Instability of left patellofemoral joint Left knee pain Transgender Home Medications esomeprazole magnesium 20 mg capsule,delayed release (Nexium) 20 mg PO DAILY #30 caps 05/25/23 [Rx Last Taken Unknown] Allergy/AdvReac Type Severity Reaction Status Date / Time diethyltoluamide AdvReac NEEDS Verified 05/25/23 13:15 FOLLOW-UP Family History Mother Hypertension Surgical History History of knee surgery [place] teeth removed Social History household members: family Smoking Status: Light Smoker (<10/day) Smokeless tobacco user: chewing tobacco alcohol intake: never substance use type: does not use additional social history: Lives with and 2 sons ROS ROS ED ROS Narrative A complete review of systems was performed and is negative except as documented in the history of present illness. Some specific details below. Constitutional: No recent fevers or chills. No malaise. EYE: No discharge, visual complaints, or pain. ENT: No difficulty swallowing. She did have some reflux symptoms more last night but feels that this might be different than her chest pain. CV: See history of present illness. Respiratory: Possibly short of breath with the pain. GI: No abdominal pain. No nausea vomiting diarrhea. No blood in stool. : No frequency dysuria or hematuria. Musculoskeletal: No recent trauma. No pains. No swelling. Skin: No rash. Nondiaphoretic. Neuro: No weakness or numbness. But she did have some shooting pain down her left arm. She had a sense of tingling but not actually and not weak. Endocrine: No polyuria or polydipsia. EXAM Physical Exam Narrative Exam Narrative: CONSTITUTIONAL: Patient is nontoxic in appearance. The patient looks comfortable. Work of breathing looks normal. HEENT: No notable trauma. Mucous membranes moist. EYES: No conjunctival injection. No proptosis. No pallor NECK:No JVD. No stridor. CARDIOVASCULAR: Regular rate. Regular rhythm. No notable murmur. No JVD. Tones are not muffled. Peripheral pulses are normal x 4. RESPIRATORY: No respiratory distress. Breathing is unlabored. No wheezes. No rhonchi. No rales. No pain with a deep breath. No chest wall tenderness. Oxygen saturation is normal at 98% on room air while I am in the room. GASTROINTESTINAL: Not distended. Bowel sounds are normal. No tenderness. No guarding. No rebound. No palpable mass. No bruit is heard. GENITOURINARY: No tenderness over the bladder. No CVA tenderness. MUSCULOSKELETAL: Atraumatic. No peripheral edema. No cord. No tenderness along the deep venous system. No asymmetry. No distended veins. NEUROLOGICAL: Patient is alert and appropriate. No focal deficit noted. SKIN: No noted rashes. No diaphoresis. PSYCHIATRIC: Patient is calm. Mood is appropriate. Const Vital Signs: 05/25/23 13:07 05/25/23 13:07 05/25/23 13:07 Temperature 98 F 98 F Temperature Source Oral Oral Pulse Rate 79 74 Respiratory Rate 18 22 H Respiratory Effort Short of Breath Blood Pressure 131/76 H 131/76 H Blood Pressure Mean 94 94 Pulse Ox 96 96 Oxygen Delivery Method Room Air Room Air 05/25/23 13:44 Temperature Temperature Source Pulse Rate Respiratory Rate Respiratory Effort Blood Pressure Blood Pressure Mean Pulse Ox 96 Oxygen Delivery Method Room Air MDM MDM MDM Narrative Medical decision making narrative: My independent interpretation of the patient's single view AP chest x-ray shows no acute process. No pneumothorax. Mediastinum and cardiac silhouette look normal. Final reading is pending. Final x-ray reading is negative. Patient CBC shows nonspecific elevation of white count at 11.2 but normal hemoglobin and platelets. Electrolytes are normal other than minimally elevated chloride and BUN. Glucose is normal. Troponin is negative at 4. This is despite having pain quite a bit of the morning and off and on over the last days. This is also after having reported admission with negative workup and stress test. Patient does state that she has been having some acid reflux. But she does not always get this type of pain with the reflux. But I still wonder since the to have come at about the same time if they are related. It is reasonable to start her on a PPI. She will follow-up with her primary doctor. Gallbladder is possible but she has no abdominal pain or tenderness whatsoever. Lab Data Attestation: I reviewed the patient's lab results. Labs: Laboratory Results - last 24 hr 05/25/23 13:50 WBC 11.2 H RBC 4.63 Hgb 12.6 Hct 39.4 MCV 85.1 MCH 27.2 MCHC 32.0 RDW Std Deviation 39.5 RDW Coeff of Nguyen 12.8 Plt Count 388 MPV 8.6 Immature Gran % (Auto) 0.500 Neut % (Auto) 68.7 Lymph % (Auto) 23.1 [place] % (Auto) 5.3 Eos % (Auto) 2.0 Baso % (Auto) 0.4 Absolute Neuts (auto) 7.7 Absolute Lymphs (auto) 2.59 Nucleated RBC % 0 Sodium 144 Potassium 3.8 Chloride 109 H Carbon Dioxide 27.0 Anion Gap 8 BUN 19 H Creatinine 0.83 Estim Creat Clear Calc 80.49 Est GFR (MDRD) Af Amer 102 Est GFR (MDRD) Non-Af 84 BUN/Creatinine Ratio 22.9 H Glucose 103 Calcium 8.9 Troponin I High Sens 4 Radiography Diagnostic Testing: Clinical Impression(s) from Imaging Studies Chest X-Ray 05/25/23 13:59 IMPRESSION: No acute cardiopulmonary process identified. Electronically Signed: Radha N. Ryan, MD at 15:01 EST , EKG Initial EKG: Comments: My independent interpretation of the patient's EKG shows normal sinus rhythm with a rate of 69. No ectopy. No acute ST elevation or depression. [place] interval, QRS duration and QTc are all normal. Discharge Plan Triage Chief Complaint: Chest Pain ED Provider: Fidel Abdi Dx/Rx/DC Orders Clinical Impression: Chest pain Instructions: ED Chest Pain, Uncertain Cause Prescriptions: New esomeprazole magnesium [Nexium] 20 mg capsule,delayed release(DR/EC) 20 mg PO DAILY Qty: 30 0RF Primary Care Provider: Care Physician,No Primary Referrals: Care Physician,No Primary [Primary Care Provider] - Activity Restrictions/Additional Instructions: Follow-up with your family doctor in [place]. Disposition Disposition: Home, Self Care
[2023-05-25 14:06] VITALS: BP 118/91; PULSE 70; RESP 16; O2SAT 99
[2023-05-25 14:15] LABS: Anion Gap 8 (5-15); BUN 19 mg/dL (7-18); BUN/Creat Ratio 22.9 RATIO (10-20); Calcium,Total 8.9 mg/dL (8.5-10.1); Chloride 109 mmol/L (98-107); Creatinine, Serum 0.83 mg/dL (0.55-1.02); EST Glomerular Filtration Rate 84 mL/min (>60); Est Glom Filt Rate - Afr Amer 102 mL/min (>60); Estimated Creatinine Clearance 80.49 ml/min; Glucose 103 mg/dL (74-106); Potassium 3.8 mmol/L (3.5-5.1); Sodium Level 144 mmol/L (136-145); Troponin-I HS 4 pg/mL (3.0-54.0)
--- OUTSIDE RECORDS SUMMARY | 2023-05-25 14:15 | XMS RPT_ITS | CCD ---
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 Name Role Phone RAÚL GRAHAM Consulting Unavailable RAÚL GRAHAM Referring Unavailable VITA SHELDON DO Admitting Unavailable VITA SHELDON DO Primary Care Unavailable VITA SHELDON DO Attending Unavailable PROVIDER, UNKNOWN Consulting Unavailable RAÚL GRAHAM Referring Unavailable SIOBHAN COUGHLIN MD Admitting Unavailab SIOBHAN Whitfield MD Primary Care Unavailab SIOBHAN Whitfield MD Attending Unavailab RAÚL Benitez Consulting Unavailable PROVIDER, UNKNOWN Consulting Unavailable MARIANA VIDAL MD, DR FUENTES Primary Care Physician Unavailable Primary Care Provider Unavailalesha e MARIANA VIDAL MD, DR FUENTES Primary Care Unavailable DAGO CHIRINOS, DR HORACIO Montgomery Admitting Unavailable GILL MELGAR DO Attending Unavailable MIKEY GOODMAN MD Attending Unavailable MARIANA VIDAL MD, DR FUENTES Primary Care Unavailable NETTA CACERES Attending Unavailable KATIA, SCOTT Primary Care Unavailable BALTES, SCOTT Attending Unavailable BALTES, SCOTT Primary Care Unavailable BALSCOTT DONOVAN Attending Unavailable KATIA, SCOTT Primary Care Unavailable Lyly Huntley DO Primary Care Provider LYLY HUNTLEY Primary Care Unavailable SCOTT CHAMBERS Admitting Unavailable SCOTT CHAMBERS Attending Unavailable LYLY HUNTLEY Primary Care Unavailable SCOTT CHAMBERS Attending Unavailable SCOTT CHAMBERS Referring Unavailable KAREN CHOUDHARY Referring Unavailable LYLY HUNTLEY Primary Care Unavailable KAREN CHOUDHARY Attending Unavailable Allergies Allergy Classification Reported Allergen(s) Allergy Type Date of Onset Reaction(s) Facility (1 source) misc non-codified allergy 1 Allergy to substance RASH [facility] Medications Current Medications Medication Drug Class(es) Dates Sig (Normalized) Sig (Original) ciprofloxacin 500 mg oral tablet (1 source) Quinolone Antimicrobial Start: 06-02-2022 End: 06-12-2022 Cipro 500 mg oral tablet Dose : 500 mg = 1 tab(s), Oral, q12h, X 10 day(s), # 20 tab(s), 0 Refill(s), 06/12/22 13:36:00 EST, Pharmacy: [facility] #[id number], 160, cm, 06/01/22 11:12:00 EST, Height, 113.6, kg, 06/01/22 11:12:00 EST, Dosing Weight Start Date: 06/02/22 Stop Date: 06/12/22 Status: Ordered metroNIDAZOLE 500 mg oral tablet (1 source) Nitroimidazole Antimicrobial Start: 06-02-2022 End: 06-12-2022 metroNIDAZOLE 500 mg oral tablet Dose : 500 mg = 1 tab(s), Oral, q8hr, X 10 day(s), # 30 tab(s), 0 Refill(s), 06/12/22 13:35:00 EST, Pharmacy: [facility] #[id number], 160, cm, 06/01/22 11:12:00 EST, Height, 113.6, kg, 06/01/22 11:12:00 EST, Dosing Weight Start Date: 06/02/22 Stop Date: 06/12/22 Status: Ordered nitroglycerin 0.4 mg sublingual tablet (2 sources) Nitrate Vasodilator Start: 05-23-2023 End: 05-23-2023 nitroGLYCERIN (NITROSTAT) 0.4 MG SL tablet 0.4 mg pantoprazole 20 mg delayed release oral tablet (1 source) Proton Pump Inhibitor Start: 06-02-2022 End: 06-16-2022 Protonix 20 mg oral enteric coated tablet Dose : 20 mg = 1 tab(s), Oral, qDayAC, # 14 tab(s), 0 Refill(s), Pharmacy: [facility] #[id number], 160, cm, 06/01/22 11:12:00 EST, Height, kg, 06/01/22 11:12:00 EST, Dosing Weight Start Date: 06/02/22 Stop Date: 06/16/22 Status: Ordered penicillin v potassium 500 mg oral tablet (1 source) Start: 07-07-2022 End: 07-17-2022 take 1 tablet by mouth twice daily penicillin V potassium (V-CILLIN, VEETIDS) 500 mg tablet Indications: Streptococcal pharyngitis Take 1 tablet by mouth twice daily for 10 days. 20 tablet 0 07/07/2022 07/17/2022 Active Completed/Discontinued Medications Medication Drug Class(es) Dates Sig (Normalized) Sig (Original) acetaminophen 325 mg oral tablet (1 source) Start: 05-23-2023 take 1 tablet by mouth every four hours as needed 650 mg, Oral, EVERY 4 HOURS PRN, Mild Pain, Fever, Headaches, Starting on Tue05/23/23 at 2007, Until Discontinued, Maximum dose of acetaminophen is 4000 mg from all sources in 24 hours. aluminum hydroxide 40 mg/ml / magnesium hydroxide 40 mg/ml oral suspension (1 source) Start: 05-23-2023 take 30 mL by mouth every six hours as needed 30 mL, Oral, EVERY 6 HOURS PRN, Indigestion, Starting on Tue05/23/23 at 2007, Until Discontinued aspirin 81 mg chewable tablet (1 source) Platelet Aggregation Inhibitor, Nonsteroidal Anti-inflammatory Drug Start: 05-23-2023 End: 05-23-2023 aspirin chewable tablet 324 mg calcium carbonate 500 mg chewable tablet (1 source) Start: 05-23-2023 take 1 tablet by mouth every four hours as needed 1,000 mg, Oral, EVERY 4 HOURS PRN, Heartburn, Starting on Tue05/23/23 at 2007, Until Discontinued cephalexin 500 mg oral tablet (1 source) Cephalosporin Antibacterial End: 05-23-2023 take 1 tablet by mouth once daily Cephalexin 500 MG TABS Take 500 mg by mouth daily. 0 05/23/2023 Discontinued For electrolyte abnormalities subsequent to initial labs (refer to the [facility] Electrolyte Replacement Orders) (1 source) Start: 05-23-2023 Other, PRN, For electrolyte abnormalities, Starting on Tue05/23/23 at 2009, Until Discontinued, For Potassium level <=3.9 or Magnesium level <=1.9, please use Order Set #100 to order medications and repeat labs. BE SURE TO CONTINUE PROTOCOL AFTER REPLACEMENT UNTIL LABS NORMALIZE. 1 ml ketorolac tromethamine 30 mg/ml cartridge (1 source) Nonsteroidal Anti-inflammatory Drug, Cyclooxygenase Inhibitor Start: 05-23-2023 End: 05-23-2023 Ketorolac (TORADOL) injection 30 mg melatonin 5 mg oral tablet (1 source) Start: 05-23-2023 take 10 mg by mouth once daily as needed for sleep 10 mg, Oral, NIGHTLY PRN, Sleep, Starting on Tue05/23/23 at 2007, Until Discontinued mupirocin 0.02 mg/mg topical ointment (1 source) RNA Synthetase Inhibitor Antibacterial End: 05-23-2023 mupirocin (BACTROBAN) 2 % ointment Apply topically 3 times daily. 0 05/23/2023 Discontinued 2 ml ondansetron 2 mg/ml injection (2 sources) Serotonin-3 Receptor Antagonist Start: 05-23-2023 take 4 mg intravenously every six hours as needed 4 mg, IV Push, EVERY 6 HOURS PRN, Nausea, Vomiting, Starting on Tue05/23/23 at 2007, Until Discontinued, Caution: This medication looks and/or sounds like another medication. Problems Problem Classification Problem Date Documented Date Episodic/Chronic Diseases of white blood cells (1 source) Leukocytosis; Translations: [Elevated white blood cell count, unspecified] Onset: 06-01-2022 Chronic Fever of unknown origin (1 source) Fever, unspecified; Translations: [Fever, unspecified] Onset: 04-19-2022 Episodic Influenza (3 sources) Influenza due to unidentified influenza virus with other respiratory manifestations; Translations: [Influenza due to unidentified influenza virus with other respiratory manifestations] Onset: 04-19-2022 Episodic Noninfectious gastroenteritis (2 sources) Noninfectious enteritis; Translations: [Noninfective gastroenteritis and colitis, unspecified] Onset: 06-01-2022 Episodic Nonspecific chest pain (5 sources) Chest pain, unspecified; Translations: [Acute chest pain] Onset: 04-19-2022 Resolved: 05-24-2023 05-23-2023 Episodic Other lower respiratory disease (1 source) Shortness of breath; Translations: [Shortness of breath] Onset: 04-19-2022 Episodic Other upper respiratory infections (2 sources) Streptococcal sore throat; Translations: [Streptococcal pharyngitis] Episodic Suicide and intentional self-inflicted injury (1 source) Suicidal thoughts 04-26-2016 Episodic Results Test Name Value Interpretation Reference Range Facil ity Vital Signs Date Time Vital Sign Value Performing Clinician Facility 05-24-2023 15:54-0500 Body temperature 97.2 [degF] Scott Chambers MD Work Phone: [facility] 05-24-2023 15:54-0500 Diastolic blood pressure 83 mm[Hg] Scott Chambers MD Work Phone: [facility] 05-24-2023 15:54-0500 Heart rate 71 /min Scott Chambers MD Work Phone: [facility] 05-24-2023 15:54-0500 SaO2% (BldA) [Mass fraction] 97 % Scott Chambers MD Work Phone: [facility] 05-24-2023 15:54-0500 Systolic blood pressure 143 mm[Hg] Scott Chambers MD Work Phone: [facility] 05-24-2023 13:48-0500 Respiratory rate 20 /min Scott Chambers MD Work Phone: [facility] 05-23-2023 20:38-0500 Body height 160 cm Scott Chambers MD Work Phone: [facility] 05-23-2023 20:38-0500 Body mass index (BMI) [Ratio] 44.71 kg/m2 Scott Chambers MD Work Phone: [facility] 05-23-2023 20:38-0500 Body weight 114.49 kg Scott Chambers MD Work Phone: [facility] 07-07-2022 09:12-0500 Body temperature 100.8 [degF] Ramo Johnson MD Work Phone: [facility] 07-07-2022 09:12-0500 Body weight 117.3 kg Ramo Johnson MD Work Phone: [facility] 07-07-2022 09:12-0500 Diastolic blood pressure 76 mm[Hg] Ramo Johnson MD Work Phone: [facility] 07-07-2022 09:12-0500 Heart rate 118 /min Ramo Johnson MD Work Phone: [facility] 07-07-2022 09:12-0500 Respiratory rate 21 /min Ramo Johnson MD Work Phone: [facility] 07-07-2022 09:12-0500 SaO2% (BldA) [Mass fraction] 99 % Ramo Johnson MD Work Phone: [facility] 07-07-2022 09:12-0500 Systolic blood pressure 118 mm[Hg] Ramo Johnson MD Work Phone: [facility] 06-02-2022 14:55-0500 Body temperature 98.6 [degF] DR HORACIO LOZA MD [facility] 06-02-2022 14:55-0500 Diastolic Blood Pressure Non-Invasive [address] HORACIO LOZA MD [facility] 06-02-2022 14:55-0500 Heart rate 71 /min DR HORACIO LOZA MD [facility] 06-02-2022 14:55-0500 Reason For Taking VItal Signs DR HORACIO LOZA MD [facility] 06-02-2022 14:55-0500 Respiratory rate 18 /min DR HORACIO LOZA MD [facility] 06-02-2022 14:55-0500 Systolic Blood Pressure Non-Invasive [address] HORACIO LOZA MD [facility] 06-02-2022 14:04-0500 Body temperature 98.42 [degF] DR HORACIO LOZA MD [facility] 06-02-2022 14:04-0500 Diastolic Blood Pressure Non-Invasive [address] HORACIO LOZA MD [facility] 06-02-2022 14:04-0500 Heart rate 73 /min DR HORACIO LOZA MD [facility] 06-02-2022 14:04-0500 Reason For Taking VItal Signs DR HORACIO LOZA MD [facility] 06-02-2022 14:04-0500 Respiratory rate 18 /min DR HORACIO LOZA MD [facility] 06-02-2022 14:04-0500 Systolic Blood Pressure Non-Invasive [address] HORACIO LOZA MD [facility] 06-02-2022 09:06-0500 Body temperature 97.88 [degF] DR HORACIO LOZA MD [facility] 06-02-2022 09:06-0500 Diastolic Blood Pressure Non-Invasive [address] HORACIO LOZA MD [facility] 06-02-2022 09:06-0500 Heart rate 83 /min DR HORACIO LOZA MD [facility] 06-02-2022 09:06-0500 Reason For Taking VItal Signs DR HORACIO LOZA MD [facility] 06-02-2022 09:06-0500 Respiratory rate 18 /min DR HORACIO LOZA MD [facility] 06-02-2022 09:06-0500 Systolic Blood Pressure Non-Invasive [address] HORACIO LOZA MD [facility] 06-01-2022 16:49-0500 Body weight 44.38 kg/m2 DR HORACIO LOZA MD [facility] 06-01-2022 14:00-0500 Heart rate 92 /min DR HORACIO LOZA MD [facility] 06-01-2022 11:12-0500 Body height [address] HORACIO LOZA MD [facility] 06-01-2022 11:12-0500 Body weight 113.[address] HORACIO LOZA MD [facility] 06-01-2022 11:12-0500 Body weight 44.38 kg/m2 DR HORACIO LOZA MD [facility] 06-01-2022 08:15-0500 Heart rate 72 /min DR HORACIO LOZA MD [facility] 06-01-2022 04:56-0500 Heart rate 78 /min DR HORACIO LOZA MD [facility] Encounters Encounter Date Encounter Type Care Provider Facility Start: 05-24-2023 ambulatory KAREN CHOUDHARY [facility] Start: 05-23-2023 End: 05-24-2023 ambulatory [facility] Start: 05-23-2023 End: 05-24-2023 Emergency department patient visit Scott Chambers MD Work Phone: [facility] ([facility]) Procedures Date Procedure Procedure Detail Performing Clinician Start: 05-24-2023 Cv strs tst xers&/or rx cont ecg trcg only Karen Choudhary APRN [employer] Work Phone: Start: 05-24-2023 Basic metabolic pane l calcium total Karen Choudhary APRN [employer] Work Phone: Start: 05-23-2023 Assay of troponin quantitative Karen Choudhary APRN [employer] Work Phone: Start: 05-23-2023 Lipid panel Karen A Hit [employer]le [employer] Work Phone: Start: 05-23-2023 Ecg routine ecg w/le ast 12 lds trcg only w/o i&r Francia Pelletier MD Work Phone: Start: 05-23-2023 Assay of troponin quantitative Scott Chambers MD Work Phone: Start: 05-23-2023 Radiologic exam ches t single view Scott Chambers MD Work Phone: Start: 05-23-2023 Urine test visual color cmprsn meths Scott Chambers MD Work Phone: Start: 05-23-2023 Basic metabolic pane l calcium total Scott Chambers MD Work Phone: Start: 05-23-2023 Ecg routine ecg w/le ast 12 lds trcg only w/o i&r Scott Chambers MD Work Phone: Start: 07-07-2022 STREP A MOLECULAR (POC) Cha Almeida PA-C Work Phone: Oral surgery (qualif ier value) DR HORACIO LOZA MD Plan of Treatment Date Care Activity Detail Author Start: 01-21-2023 Influenza vaccination given INFLUENZA VACCINE (#1) [facility] Start: 05-23-2022 DEPRESSION ASSESSMENT DEPRESSION ASSESSMENT [facility] Start: 01-21-2022 Influenza vaccination INFLUENZA (#1) [facility] Start: 2020 HPV TESTING HPV TESTING [facility] Start: 09-12-2019 Administration of diphtheria + tetanus + acellular pertussis vaccine DTAP/TDAP/TD VACCINE (2 - Td or Tdap) [facility] Start: 09-12-2019 Urine microalbumin profile DTAP,TDAP,TD (2 - Td or Tdap) [facility] Start: 09-22-2011 PAP TESTING PAP TESTING [facility] Start: 11-06-2009 HEPATITIS B (3 of 3 - 3-dose series) HEPATITIS B (3 of 3 - 3-dose series) [facility] Start: 2008 ANNUAL WELLNESS VISIT ANNUAL WELLNESS VISIT [facility] Start: 2008 HEPATITIS C SCREENING HEPATITIS C SCREENING [facility] Start: 2008 HIV SCREENING HIV SCREENING [facility] Start: 2002 Depression screening using PHQ-9 (Patient Health Questionnaire 9) score DEPRESSION SCREENING [facility] Start: 03-24-1991 COVID-19 VACCINE (#1) COVID-19 VACCINE (#1) [facility] Start: 1990 HPV/COTEST HPV/COTEST [facility] Start: 1990 Screening for malignant neoplasm of cervix [facility] 12 lead ECG EKG 12-LEAD PRN - c/o pain or rhythm change ECG Routine As Needed until discontinued starting 05/23/2023 [facility] Immunizations Immunization Date Immunization Notes Care Provider Fa [facility] 11-13-2009 human papilloma viru s vaccine, quadrivalent Ramo Johnson MD Work Phone: [facility] 11-13-[address] HORACIO LOZA MD [facility] 09-11-2009 hepatitis B pediatri c vaccine DR HORACIO LOZA MD [facility] 09-11-2009 hepatitis B vaccine, pediatric or pediatric/adolescent dosage Ramo Johnson MD Work Phone: [facility] 09-11-2009 tetanus toxoid, redu alejandro diphtheria toxoid, and acellular pertussis vaccine, adsorbed DR HORACIO LOZA MD [facility] 09-11-2009 hepatitis B vaccine, unspecified formulation Ramo Johnson MD Work Phone: [facility] 01-04-2003 hepatitis B pediatri c vaccine DR HORACIO LOZA MD [facility] 01-04-2003 hepatitis B vaccine, pediatric or pediatric/adolescent dosage Ramo Johnson MD Work Phone: [facility] 12-21-1995 measles, mumps and rubella virus vaccine Ramo Johnson MD Work Phone: [facility] 12-21-1995 measles/mumps/rubell a virus vaccine DR HORACIO LOZA MD [facility] 12-25-1991 measles, mumps and rubella virus vaccine Ramo Johnson MD Work Phone: [facility] 12-25-1991 measles/mumps/rubell a virus vaccine DR HORACIO LOZA MD [facility] Payers Date Payer Category Payer Unknown [id number] 2022 Unknown JUAN HERNÁNDEZ PPO [id number] 2022-Present [phone] [facility] [id number] [place] [address] PPO [id number] 1990 Unknown [id number] 1990 Unknown [id number] 1990 Unknown [id number] 1990 Unknown [id number] 1990 Unknown [id number] 1990 Unknown [id number] 1990 Unknown [id number] Social History Date Type Detail Facility Tobacco Nicotine Use: [facility]. Type: Oral (Snuff, Chew). [facility] Start: 07-07-2022 End: 05-23-2023 Tobacco smoking status Never smoked tobacco (finding) [facility] Sex Assigned At Female [facility] Start: 07-07-2022 Tobacco use and exposure Smokeless tobacco non-user [facility] Start: 1990 Sex Assigned At Not on file [facility] Start: 05-23-2023 Tobacco use and exposure User of smokeless tobacco [facility] History of tobacco use Chews Tobacco [facility] Start: 05-23-2023 Alcohol intake Current drinke r of alcohol (finding) [facility] Start: 05-23-2023 History of Social function [facility] Start: 05-23-2023 Tobacco use panel [facility] Start: 05-23-[address] [facility] NEGATED: Highlighted rowStart: NINF History of tobacco use Passive smoker [facility] Functional Status Date Assessment Result Facility 06-02-2022 Functional Status Room check performed [facility] 06-02-2022 Functional Status [facility] 06-02-2022 Functional Status [facility] 06-02-2022 Functional Status [facility] 06-02-2022 Functional Status [facility] 06-01-2022 Functional Status SCD On/Re-appl ied bilateral knee high [facility] 06-01-2022 Functional Status [facility] 06-01-2022 Functional Status Single level home [facility] Mental Status Date Assessment Result Facility 06-02-2022 Mental Status [facility] 06-01-2022 Mental Status [facility] Clinical Notes 04-25-2022 to 05-24-2023 Nursing - Antoinette Magana RN - 05/24/2023 4:49 PM ESTNursing - Antoinette Magana RN - 05/24/2023 4:49 PM ESTNursing - Sravani Daniel RN - 05/24/2023 1:46 PM ESTDischarge InstructionsAttachments Note Date & Type Note Facility 05-24-2023 Nurse Note Discharge instructions read and explained to patient and patient's visitor including follow-up appointment with cardiology and care instructions. Patient verbalizes understanding of same. IV removed, dressing applied. Telemetry removed per this RN. Patient is dressed and has belongings gathered. Patient's visitor to give patient a ride home. Patient ambulates off unit with visitor. [facility] 05-24-2023 Miscellaneous Notes Discharge instructions read and explained to patient and patient's visitor including follow-up appointment with cardiology and care instructions. Patient verbalizes understanding of same. IV removed, dressing applied. Telemetry removed per this RN. Patient is dressed and has belongings gathered. Patient's visitor to give patient a ride home. Patient ambulates off unit with visitor. Prior to testing, troponin results reviewed with Dr. Javier. Ok to proceed with stress test. Exercise stress echo completed for [facility] cardiology . Patient developed mid chest tightness 6/10 during exercise. In recovery it changed to indigestion type of discomfort and then resolved by 19 minutes. Target heart rate and MET levels were achieved. Results pending [facility] cardiology to read. Patient returns from stress lab to room CDU 6 at this time. Patient to stress lab at this time. Spoke with Patient at bedside. Patient states she does not have insurance at this time. Provided Patient with Medicaid card that includes Medicaid Phone number and instructions on how to apply for same. Patient voiced understanding. Stress called at this time to notify of PT stress at 0730. This nurse notified that PT has nitrol at 2308. Stress agreed at this time to move stress to 1230. PT made aware at this time. PT reminded of NPO status at this time and voices understanding. PT resting comfortably but awaken easily for blood draw at this time. PT denies chest pain when asked at this time. PT denies any wants and or needs. Call light remains in reach. PT resting in bed quietly at this time with no further complaints. Call light remains in reach. Pt rating chest pain that rates to left shoulder a 3 out of 10 at this time and declines 3rd nitro tab for this nurse. Pt educated to inform staff if pain changes/worsens. Pt verbalizes understanding for this nurse. PT began complaining of increasing chest pain at this time. EKG completed and [employer] to administer nitro per order at this time. PT requested something to eat at this time and provided without any difficulty. PT states that her chest is beginning to hurt again. PT denies wanting nitro when offered. This nurse notified Prabhu at this time with a verbal order for toradol 30MG at this time IVP. PT admitted to CDU room 6 at this time. PT ambulated from ED at this time with no difficulty with significant other at bedside. PT appears comfortable at this time. PT is alert and oriented x4. PT oriented to room and unit at this time without any difficulty. PT updated on plan of care and NPO at 0000. Questions answered at this time. PT denies any wants or needs. Call light remains in reach. documented in this encounter [facility] 05-24-2023 Hospital Discharg e instructions Antoinette Magana RN - 05/24/2023 3:47 PM EST YOU HAVE BEEN PROVIDED WITH A REFERRAL TO CARDIOLOGY. PLEASE CALL TO MAKE AN APPOINTMENT. RETURN TO THE ER WITH ANY FURTHER CONCERNS. Instructions for patient: Schedule follow-up appointment with cardiology. What to do after you leave the hospital: If you experience any return and/or worsening of symptoms, please follow up with PCP or ER as appropriate. Activity: as tolerated Diet: Diet cardiac No Caffeine; Feeds Self The following personal items were collected during your admission and were returned to you: Valuables Dentures: None Vision - Corrective Lenses: None Hearing Aid: None Jewelry: Ring, Piercings (comment) Clothing: Pants, Shirt, Footwear, Socks, Underpants Home medical equipment: None Other Valuables: Cell phone Offered to send valuables to safe: Declined after education Valuables Given To: Patient The following attachments cannot be sent through Care Everywhere.Chest Pain (J[place]ican Maltese)documented in this encounter [facility] 05-24-2023 Nurse Note Prior to testing, troponin results reviewed with Dr. Javier. Ok to proceed with stress test. Exercise stress echo completed for [facility] cardiology . Patient developed mid chest tightness 6/10 during exercise. In recovery it changed to indigestion type of discomfort and then resolved by 19 minutes. Target heart rate and MET levels were achieved. Results pending [facility] cardiology to read. [facility] 05-24-2023 Nurse Note Patient returns from stress lab to room U 6 at this time. [facility] 05-24-2023 Nurse Note Patient to stress lab at this time. [facility] 05-24-2023 Plan of care note Spoke with Patient at bedside. Patient states she does not have insurance at this time. Provided Patient with Medicaid card that includes Medicaid Phone number and instructions on how to apply for same. Patient voiced understanding. [facility] Work Phone: 05-24-2023 Nurse Note Stress called at this time to notify of PT stress at 0730. This nurse notified that PT has nitrol at 2308. Stress agreed at this time to move stress to 1230. PT made aware at this time. [facility] 05-24-2023 Nurse Note PT reminded of NPO status at this time and voices understanding. [facility] 05-24-2023 Nurse Note PT resting comfortably but awaken easily for blood draw at this time. PT denies chest pain when asked at this time. PT denies any wants and or needs. Call light remains in reach. [facility] 05-24-2023 Nurse Note PT resting in bed quietly at this time with no further complaints. Call light remains in reach. [facility] 05-23-2023 Nurse Note Pt rating chest pain that rates to left shoulder a 3 out of 10 at this time and declines 3rd nitro tab for this nurse. Pt educated to inform staff if pain changes/worsens. Pt verbalizes understanding for this nurse. [facility] [employer] 05-23-2023 Nurse Note PT began complaining of increasing chest pain at this time. EKG completed and [employer] to administer nitro per order at this time. [facility] 05-23-2023 Nurse Note PT requested something to eat at this time and provided without any difficulty. PT states that her chest is beginning to hurt again. PT denies wanting nitro when offered. This nurse notified [facility] at this time with a verbal order for toradol 30MG at this time IVP. [facility] [facility] 05-23-2023 Nurse Note PT admitted to CDU room 6 at this time. PT ambulated from ED at this time with no difficulty with significant other at bedside. PT appears comfortable at this time. PT is alert and oriented x4. PT oriented to room and unit at this time without any difficulty. PT updated on plan of care and NPO at 0000. Questions answered at this time. PT denies any wants or needs. Call light remains in reach. [facility] 05-23-2023 Emergency department Note Pt sitting in bed watching tv, pt a & o x4, respirations NAD. Denies any needs at this time. Call light within reach. [facility] 05-23-2023 Emergency department Note Pt sitting in bed watching tv, pt a & o x4, respirations NAD. Denies any needs at this time. Call light within reach. Following delta troponin- shows improvement. Will proceed with plan to keep in CDU and stress in AM. Patient with no complaints at this time and is agreeable to plan of care. Karen Choudhary APRN CNP 05/23/232005 32F, overweight, presents with severe, sudden, pressure-like eft-sided chest pain. EKG shows no acute ischemic changes. Pain resolved after nitro. D-dimer negative. CXR without acute process. Initial trop 0.037. Repeat trop pending. Will plan for admission at [facility] CDU if trop stable or down-trending and at the main campus if up-trending. ASA ordered in the meantime. Scott Chambers MD 05/23/231944 Pt states shoulder and back pain is a nagging 4/10. PT states chest pain is 3/10 heaviness and tolerable. Pt declines 3rd dose of nitro. Kristie KNOX notified Images from the original note were not included. ED Diagnosis No diagnosis found. ED Summary 32-year-old female presents to the emergency department with left-sided chest pain. Patient was given aspirin. She had improvement of her pain with sublingual nitro. She does have a slightly detectable troponin initially however EKG reassuring. Plan for repeat troponin in 3 hours with further disposition based on results. Differential diagnosis: PE, pneumonia IV antibiotics considered but deemed not neccessary at this time due to no obvious factor infectious etiology identified at this time. Chart reviewed with pertinent information including: Visit to clinic for cellulitis 07/22/2015 This plan was discussed with patient and/or parent(s) by physician. Spoke with Dr. Chambers ED attending regarding patient. Collaboration performed between this SIDE GLUER and physician regarding patient's plan of care. The above report was generated using voice recognition software. It may contain grammatical, syntax and spelling errors. XR Chest 1 View Final Result NO ACUTE CARDIOPULMONARY FINDINGS Labs Reviewed CBC AND DIFFERENTIAL - Abnormal; Notable for the following components: Result Value Absolute Lymph 3.7 (*) All other components within normal limits BASIC METABOLIC PANEL - Abnormal; Notable for the following components: Glucose 114 (*) All other components within normal limits TROPONIN I SERIES - Abnormal; Notable for the following components: Troponin I 0.037 (*) All other components within normal limits D-DIMER - Normal POCT ED/FC/SURG URINE - Normal RAINBOW DRAW Narrative: The following orders were created for panel order [facility] Draw. Procedure Abnormality Status --------- ------ Gold Top[[id number]] In process LIGHT BLUE TOP[[id number]] In process Dark Green Top[[id number]] In process Please view results for these tests on the individual orders. GOLD TOP LIGHT BLUE TOP DARK GREEN TOP TROPONIN I TROPONIN I History Chief Complaint Patient presents with Chest Pain Shortness of Breath Patient's medications, allergies, past medical, surgical, social and family histories were reviewed and updated as appropriate. 32 yo well-appearing female in no apparent distress presents to the emergency department accompanied by female telephone engineer who also provides history with chief complaint of chest pain or shortness of breath. Patient reports she was taking ornaments off of her [place] tree when she began experiencing pain in her left chest. This radiates into her left side of her back and her left arm. This occurred approximate 1 hour prior to my examination. Pain has been constant but is slightly eased since then. She reports accompanying nausea but no vomiting. She also reports shortness of breath and diaphoresis. She denies taking anything for her symptoms. She reports she used to smoke several years ago but does not currently. She reports she did take 4 hits off of the vape last evening but typically does not vape. She denies recent illness. She does report a family history of heart disease. Review of Systems Constitutional: Positive for diaphoresis. Negative for chills, fever and malaise/fatigue. HENT: Negative for congestion, ear pain and sore throat. Respiratory: Positive for shortness of breath. Negative for cough. Cardiovascular: Positive for chest pain. Negative for palpitations and leg swelling. Gastrointestinal: Positive for nausea. Negative for abdominal pain, constipation, diarrhea and vomiting. Genitourinary: Negative for dysuria, frequency and urgency. Neurological: Negative for weakness and headaches. Vitals: 05/23/23 1751 BP: 118/84 Pulse: 81 Resp: 19 Temp: SpO2: 97% Physical Exam Physical Exam Vitals and nursing note reviewed. Constitutional: General: She is not in acute distress. Appearance: She is well-developed. She is not diaphoretic. HENT: Head: Normocephalic and atraumatic. Right Ear: External ear normal. Left Ear: External ear normal. Nose: Nose normal. Mouth/Throat: Mouth: Mucous membranes are moist. Eyes: Extraocular Movements: Extraocular movements intact. Conjunctiva/sclera: Conjunctivae normal. Neck: Vascular: No JVD. Cardiovascular: Rate and Rhythm: Normal rate and regular rhythm. Heart sounds: Normal heart sounds. Pulmonary: Effort: Pulmonary effort is normal. Breath sounds: Normal breath sounds. Chest: Chest wall: Tenderness present. No mass, lacerations, deformity, swelling, crepitus or edema. Abdominal: General: Bowel sounds are normal. There is no distension. Palpations: Abdomen is soft. There is no mass. Tenderness: There is no abdominal tenderness. There is no guarding or rebound. Musculoskeletal: General: Normal range of motion. Cervical back: Normal range of motion and neck supple. Lymphadenopathy: Cervical: No cervical adenopathy. Skin: General: Skin is warm and dry. Capillary Refill: Capillary refill takes less than 2 seconds. Neurological: General: No focal deficit present. Mental Status: She is alert and oriented to person, place, and time. Deep Tendon Reflexes: Reflexes are normal and symmetric. Psychiatric: Mood and Affect: Mood normal. Behavior: Behavior normal. Thought Content: Thought content normal. ED Course Procedures Medical Decision Making Kristie Harrell APRN CNP 05/23/23 1847 Pt arrives to the ED via private vehicle. PT ambulates to room without difficulty. Pt his clutching at left side of her chest. Pt c/o left sided chest pain that started approx 20 minutes ago. Pt states that it radiates down her left arm and into her back. Pt c/o nausea, but denies any vomiting. Pt denies any cardiac history. Pt states that she was taking down the nicole tree when it started. Pt is A&Ox4. Pt appears SOB and appears uncomfortable. ED Diagnosis and Summary 1. Acute chest pain ED Summary 32F, obese, doesn't smoker, presents with sudden onset of left-sided pressure-like chest pain which started shortly prior to ED arrival. Ms. Arnold was given nitro in the ED with resolution of her pain. Exam: well-appearing, afebrile, stable vitals, easy respirations, RRR, no murmur, clear breath sounds. I have personally seen and examined this patient in conjunction with the ED HAMIDA. I have fully participated in the care of this patient. I have reviewed all pertinent clinical information, including the patient's medical and surgical history, medications, allergies, and the ED HAMIDA's physical exam findings. The Medical Decision Making section at the end of this document is the result of this process and reflects my plan of care and disposition. History Chief Complaint Patient presents with Chest Pain Shortness of Breath Patient's medications, allergies, past medical, surgical, social and family histories were reviewed and updated as appropriate. History reviewed. No pertinent past medical history. History reviewed. No pertinent surgical history. No family history on file. Social History Socioeconomic History Marital status: Tobacco Use Smoking status: Never Smokeless tobacco: Current Types: Chew Vaping Use Vaping Use: Never used Substance and Sexual Activity Alcohol use: Yes Comment: rarely Drug use: No Sexual activity: Not Currently Current Facility-Administered Medications Medication Dose Route Frequency Provider Last Rate Last Admin acetaminophen (TYLENOL) tablet 650 mg 650 mg Oral Q4H PRN Karen Choudhary APRN CNP aluminum-magnesium hydroxide 200-200 MG/5ML suspension 30 mL 30 mL Oral Q6H PRN Karen Choudhary APRN CNP calcium carbonate (TUMS) chewable tablet 1,000 mg 1,000 mg Oral Q4H PRN Karen Choudhary APRN CNP For electrolyte abnormalities subsequent to initial labs (refer to the [facility] Electrolyte Replacement Orders) Other PRN Karen Choudhary APRN CNP melatonin tablet 10 mg 10 mg Oral Nightly PRN Karen Choudhary APRN CNP nitroGLYCERIN (NITROSTAT) 0.4 MG SL tablet 0.4 mg 0.4 mg Sublingual Q5 Min PRN Francia Pelletier MD 0.4 mg at 05/23/23 2301 ondansetron hcl (ZOFRAN) injection 4 mg 4 mg IV Push Q6H PRN Karen Choudhary APRN CNP potassium chloride SA (K-DUR,KLOR-CON M20) CR tablet 20 mEq 20 mEq Oral Once Francia Pelletier MD No Known Allergies The history is provided by the patient and medical records. Review of Systems Physical Exam ED Triage Vitals [05/23/23 1621] BP 137/71 Heart Rate 80 Resp 27 Temp 98.3 F (36.8 C) Temp src Oral SpO2 98 % Weight 250 lb (113.4 kg) Height 5' 3 (1.6 m) BMI (Calculated) 44.3 Physical Exam ED Course Procedures Medical Decision Making ED evaluation notable for an initial troponin of 0.037 with normalization upon a recheck. EKG without acute ischemic changes. D-dimer normal. CXR without acute process. ASA given and Ms. Arnold will be admitted to the [facility] CDU. Problems Addressed: Acute chest pain: acute illness or injury Amount and/or Complexity of Data Reviewed Labs: ordered. Decision-making details documented in ED Course. Radiology: ordered. Decision-making details documented in ED Course. ECG/medicine tests: ordered and independent interpretation performed. Decision-making details documented in ED Course. Risk OTC drugs. Decision regarding hospitalization. Heart Score History: Moderately Suspicious ECG: Normal Age: < or equal to 45 years Risk Factors: 1 or 2 Risk Factors Troponin: > 1 but < 3 x Normal Limit Score: 3 Scott Chambers MD 05/24/23 0738 documented in this encounter [facility] 05-23-2023 History and physical note HISTORY & PHYSICAL Date of Admission: 05/23/2023 Date of Service: 05/23/2023 PCP: Lyly Huntley DO Room: [address] CHIEF COMPLAINT: Chest Pain and Shortness of Breath HISTORY OF PRESENT ILLNESS Radha Arnold is a 32 y.o. female presented to [facility] Emergency Department on 05/23/2023 with chest pain. In ED: 32 yo female presents to the emergency department accompanied by female telephone engineer who also provides history with chief complaint of chest pain and shortness of breath. Patient reports she was taking ornaments off of her [place] tree when she began experiencing pain in her left chest. The pain radiates into her left side of her back and her left arm. This occurred approximate 1 hour prior to arrival to ED. Pain has been constant but is slightly eased since then. She reports accompanying nausea but no vomiting. She also reports shortness of breath and diaphoresis. She denies taking anything for her symptoms. She reports she used to smoke several years ago but does not currently. She reports she did take 4 hits off of the vape last evening but typically does not vape. She denies recent illness. She does report a family history of heart disease. Pain improved with nitro. Second troponin trending down. Negative chest x-ray. No acute ischemia on EKG. PAST MEDICAL HISTORY has no past medical history on file. PAST SURGICAL HISTORY has no past surgical history on file. HOME MEDICATIONS No current facility-administered medications on file prior to encounter. Current Outpatient Medications on File Prior to Encounter Medication Sig Dispense Refill [DISCONTINUED] Cephalexin 500 MG TABS Take 500 mg by mouth daily. [DISCONTINUED] mupirocin (BACTROBAN) 2 % ointment Apply topically 3 times daily. [DISCONTINUED] sulfamethoxazole-trimethoprim (BACTRIM DS,SEPTRA DS) 800-160 MG per tablet Take 1 tablet by mouth 2 times daily. 20 tablet 0 ALLERGIES has No Known Allergies. SOCIAL HISTORY reports that she has never smoked. Her smokeless tobacco use includes chew. She reports current alcohol use. She reports that she does not use drugs. FAMILY HISTORY family history is not on file. REVIEW OF SYSTEMS Review of Systems Constitutional: Positive for diaphoresis. Negative for chills, fever, malaise/fatigue and weight loss. HENT: Negative for congestion and sore throat. Respiratory: Positive for shortness of breath. Cardiovascular: Positive for chest pain. Gastrointestinal: Positive for nausea. Negative for diarrhea and vomiting. Genitourinary: Negative for dysuria and urgency. Neurological: Negative for headaches. PHYSICAL EXAM Vitals: Visit Vitals BP 122/59 Pulse 74 Temp 98.3 F (36.8 C) (Oral) Resp 28 Ht 5' 3 (1.6 m) Wt 250 lb (113.4 kg) LMP 04/14/2023 (Approximate) SpO2 98% BMI 44.29 kg/m Physical Exam Vitals and nursing note reviewed. Constitutional: General: She is not in acute distress. Appearance: She is not ill-appearing or diaphoretic. HENT: Head: Normocephalic. Eyes: Extraocular Movements: Extraocular movements intact. Cardiovascular: Rate and Rhythm: Normal rate. Pulmonary: Effort: Pulmonary effort is normal. Breath sounds: Normal breath sounds. Chest: Chest wall: Tenderness present. Abdominal: General: Bowel sounds are normal. There is no distension. Palpations: Abdomen is soft. Tenderness: There is no abdominal tenderness. There is guarding. Musculoskeletal: General: Normal range of motion. Skin: General: Skin is warm and dry. Neurological: General: No focal deficit present. Mental Status: She is alert and oriented to person, place, and time. DATA REVIEWED I have personally reviewed chart, medications, diagnostics, and some old records. I coordinated medical care with nursing staff. Patient's medications, allergies, past medical, social, surgical and family histories were reviewed and updated as appropriate. Cardiographics 05/23/2023 ECG 05/23/2023 ECHO Imaging XR Chest 1 View Final Result NO ACUTE CARDIOPULMONARY FINDINGS Stress Echocardiogram - Exercise (Results Pending) Lab Review Recent Labs Lab 05/23/23 1625 HGB 13.7 HCT 41.5 WHITEBLOODCE 10.2 PLT 400 NA 139 K 4.3 CL 106 CO2 23 BUN 16 CREATININE 0.72 GLU 114* CALCIUM 9.5 Recent Labs Lab 05/23/23 1927 05/23/23 1625 TROPONINI 0.026 0.037* No results for input(s): AMYLASE , LIPASE , ALKPHOS , BILITOT , AST , ALT in the last 168 hours. ASSESSMENT / PLAN Principal Problem: Acute chest pain- cycle troponin, media monitor, stress test DVT prophylaxis- KITA hose, SCD pumps and early ambulation Note: I discussed present assessment(s), test results, and plan of care with patient. Additionally, all questions and concerns were addressed. Reviewed and discussed case with collaborating physician Dr. Chambers Signed: Karen Choudhary APRN [employer] Associated attestation - Scott Chambers MD - 05/24/2023 7:28 AM EST 32F, overweight, presents with severe, sudden, pressure-like left-sided chest pain. EKG shows no acute ischemic changes. Pain resolved after nitro. D-dimer negative. CXR without acute process. Initial trop 0.037, repeat troponin down-trending. ASA ordered and Ms. Arnold will be admitted to the [facility] CDU for observation and additional testing to rule-out ACS. [facility] 05-23-2023 History and physical note HISTORY & PHYSICAL Date of Admission: 05/23/2023 Date of Service: 05/23/2023 PCP: Lyly Huntley DO Room: [address] CHIEF COMPLAINT: Chest Pain and Shortness of Breath HISTORY OF PRESENT ILLNESS Radha Arnold is a 32 y.o. female presented to [facility] Emergency Department on 05/23/2023 with chest pain. In ED: 32 yo female presents to the emergency department accompanied by female telephone engineer who also provides history with chief complaint of chest pain and shortness of breath. Patient reports she was taking ornaments off of her [place] tree when she began experiencing pain in her left chest. The pain radiates into her left side of her back and her left arm. This occurred approximate 1 hour prior to arrival to ED. Pain has been constant but is slightly eased since then. She reports accompanying nausea but no vomiting. She also reports shortness of breath and diaphoresis. She denies taking anything for her symptoms. She reports she used to smoke several years ago but does not currently. She reports she did take 4 hits off of the vape last evening but typically does not vape. She denies recent illness. She does report a family history of heart disease. Pain improved with nitro. Second troponin trending down. Negative chest x-ray. No acute ischemia on EKG. PAST MEDICAL HISTORY has no past medical history on file. PAST SURGICAL HISTORY has no past surgical history on file. HOME MEDICATIONS No current facility-administered medications on file prior to encounter. Current Outpatient Medications on File Prior to Encounter Medication Sig Dispense Refill [DISCONTINUED] Cephalexin 500 MG TABS Take 500 mg by mouth daily. [DISCONTINUED] mupirocin (BACTROBAN) 2 % ointment Apply topically 3 times daily. [DISCONTINUED] sulfamethoxazole-trimethoprim (BACTRIM DS,SEPTRA DS) 800-160 MG per tablet Take 1 tablet by mouth 2 times daily. 20 tablet 0 ALLERGIES has No Known Allergies. SOCIAL HISTORY reports that she has never smoked. Her smokeless tobacco use includes chew. She reports current alcohol use. She reports that she does not use drugs. FAMILY HISTORY family history is not on file. REVIEW OF SYSTEMS Review of Systems Constitutional: Positive for diaphoresis. Negative for chills, fever, malaise/fatigue and weight loss. HENT: Negative for congestion and sore throat. Respiratory: Positive for shortness of breath. Cardiovascular: Positive for chest pain. Gastrointestinal: Positive for nausea. Negative for diarrhea and vomiting. Genitourinary: Negative for dysuria and urgency. Neurological: Negative for headaches. PHYSICAL EXAM Vitals: Visit Vitals BP 122/59 Pulse 74 Temp 98.3 F (36.8 C) (Oral) Resp 28 Ht 5' 3 (1.6 m) Wt 250 lb (113.4 kg) LMP 04/14/2023 (Approximate) SpO2 98% BMI 44.29 kg/m Physical Exam Vitals and nursing note reviewed. Constitutional: General: She is not in acute distress. Appearance: She is not ill-appearing or diaphoretic. HENT: Head: Normocephalic. Eyes: Extraocular Movements: Extraocular movements intact. Cardiovascular: Rate and Rhythm: Normal rate. Pulmonary: Effort: Pulmonary effort is normal. Breath sounds: Normal breath sounds. Chest: Chest wall: Tenderness present. Abdominal: General: Bowel sounds are normal. There is no distension. Palpations: Abdomen is soft. Tenderness: There is no abdominal tenderness. There is guarding. Musculoskeletal: General: Normal range of motion. Skin: General: Skin is warm and dry. Neurological: General: No focal deficit present. Mental Status: She is alert and oriented to person, place, and time. DATA REVIEWED I have personally reviewed chart, medications, diagnostics, and some old records. I coordinated medical care with nursing staff. Patient's medications, allergies, past medical, social, surgical and family histories were reviewed and updated as appropriate. Cardiographics 05/23/2023 ECG 05/23/2023 ECHO Imaging XR Chest 1 View Final Result NO ACUTE CARDIOPULMONARY FINDINGS Stress Echocardiogram - Exercise (Results Pending) Lab Review Recent Labs Lab 05/23/23 1625 HGB 13.7 HCT 41.5 WHITEBLOODCE 10.2 PLT 400 NA 139 K 4.3 CL 106 CO2 23 BUN 16 CREATININE 0.72 GLU 114* CALCIUM 9.5 Recent Labs Lab 05/23/23 1927 05/23/23 1625 TROPONINI 0.026 0.037* No results for input(s): AMYLASE , LIPASE , ALKPHOS , BILITOT , AST , ALT in the last 168 hours. ASSESSMENT / PLAN Principal Problem: Acute chest pain- cycle troponin, media monitor, stress test DVT prophylaxis- KITA hose, SCD pumps and early ambulation Note: I discussed present assessment(s), test results, and plan of care with patient. Additionally, all questions and concerns were addressed. Reviewed and discussed case with collaborating physician Dr. Chambers Signed: Karen Choudhary APRN [employer] Associated attestation - Scott Chambers MD - 05/24/2023 7:28 AM EST 32F, overweight, presents with severe, sudden, pressure-like left-sided chest pain. EKG shows no acute ischemic changes. Pain resolved after nitro. D-dimer negative. CXR without acute process. Initial trop 0.037, repeat troponin down-trending. ASA ordered and Ms. Arnold will be admitted to the [facility] CDU for observation and additional testing to rule-out ACS. documented in this encounter [facility] 05-23-2023 Emergency department Note Following delta troponin- shows improvement. Will proceed with plan to keep in CDU and stress in AM. Patient with no complaints at this time and is agreeable to plan of care. Karen Choudhary APRN CNP 05/23/232005 [facility] 05-23-2023 Emergency department Note 32F, overweight, presents with severe, sudden, pressure-like eft-sided chest pain. EKG shows no acute ischemic changes. Pain resolved after nitro. D-dimer negative. CXR without acute process. Initial trop 0.037. Repeat trop pending. Will plan for admission at [facility]U if trop stable or down-trending and at the main campus if up-trending. ASA ordered in the meantime. Soctt Chambers MD 05/23/231944 [facility] 05-23-2023 Emergency department Note Pt states shoulder and back pain is a nagging 4/10. [facility] 05-23-2023 Emergency department Note PT states chest pain is 3/10 heaviness and tolerable. Pt declines 3rd dose of nitro. Kristie KNOX notified [facility] 05-23-2023 Physician Emergency department Note Images from the original note were not included. ED Diagnosis No diagnosis found. ED Summary 32-year-old female presents to the emergency department with left-sided chest pain. Patient was given aspirin. She had improvement of her pain with sublingual nitro. She does have a slightly detectable troponin initially however EKG reassuring. Plan for repeat troponin in 3 hours with further disposition based on results. Differential diagnosis: PE, pneumonia IV antibiotics considered but deemed not neccessary at this time due to no obvious factor infectious etiology identified at this time. Chart reviewed with pertinent information including: Visit to clinic for cellulitis 07/22/2015 This plan was discussed with patient and/or parent(s) by physician. Spoke with Dr. Chambers ED attending regarding patient. Collaboration performed between this SIDE GLUER and physician regarding patient's plan of care. The above report was generated using voice recognition software. It may contain grammatical, syntax and spelling errors. XR Chest 1 View Final Result NO ACUTE CARDIOPULMONARY FINDINGS Labs Reviewed CBC AND DIFFERENTIAL - Abnormal; Notable for the following components: Result Value Absolute Lymph 3.7 (*) All other components within normal limits BASIC METABOLIC PANEL - Abnormal; Notable for the following components: Glucose 114 (*) All other components within normal limits TROPONIN I SERIES - Abnormal; Notable for the following components: Troponin I 0.037 (*) All other components within normal limits D-DIMER - Normal POCT ED/FC/SURG URINE - Normal RAINBOW DRAW Narrative: The following orders were created for panel order [facility] Draw. Procedure Abnormality Status --------- ------ Gold Top[[id number]] In process LIGHT BLUE TOP[[id number]] In process Dark Green Top[[id number]] In process Please view results for these tests on the individual orders. GOLD TOP LIGHT BLUE TOP DARK GREEN TOP TROPONIN I TROPONIN I History Chief Complaint Patient presents with Chest Pain Shortness of Breath Patient's medications, allergies, past medical, surgical, social and family histories were reviewed and updated as appropriate. 32 yo well-appearing female in no apparent distress presents to the emergency department accompanied by female telephone engineer who also provides history with chief complaint of chest pain or shortness of breath. Patient reports she was taking ornaments off of her [place] tree when she began experiencing pain in her left chest. This radiates into her left side of her back and her left arm. This occurred approximate 1 hour prior to my examination. Pain has been constant but is slightly eased since then. She reports accompanying nausea but no vomiting. She also reports shortness of breath and diaphoresis. She denies taking anything for her symptoms. She reports she used to smoke several years ago but does not currently. She reports she did take 4 hits off of the vape last evening but typically does not vape. She denies recent illness. She does report a family history of heart disease. Review of Systems Constitutional: Positive for diaphoresis. Negative for chills, fever and malaise/fatigue. HENT: Negative for congestion, ear pain and sore throat. Respiratory: Positive for shortness of breath. Negative for cough. Cardiovascular: Positive for chest pain. Negative for palpitations and leg swelling. Gastrointestinal: Positive for nausea. Negative for abdominal pain, constipation, diarrhea and vomiting. Genitourinary: Negative for dysuria, frequency and urgency. Neurological: Negative for weakness and headaches. Vitals: 05/23/23 1751 BP: 118/84 Pulse: 81 Resp: 19 Temp: SpO2: 97% Physical Exam Physical Exam Vitals and nursing note reviewed. Constitutional: General: She is not in acute distress. Appearance: She is well-developed. She is not diaphoretic. HENT: Head: Normocephalic and atraumatic. Right Ear: External ear normal. Left Ear: External ear normal. Nose: Nose normal. Mouth/Throat: Mouth: Mucous membranes are moist. Eyes: Extraocular Movements: Extraocular movements intact. Conjunctiva/sclera: Conjunctivae normal. Neck: Vascular: No JVD. Cardiovascular: Rate and Rhythm: Normal rate and regular rhythm. Heart sounds: Normal heart sounds. Pulmonary: Effort: Pulmonary effort is normal. Breath sounds: Normal breath sounds. Chest: Chest wall: Tenderness present. No mass, lacerations, deformity, swelling, crepitus or edema. Abdominal: General: Bowel sounds are normal. There is no distension. Palpations: Abdomen is soft. There is no mass. Tenderness: There is no abdominal tenderness. There is no guarding or rebound. Musculoskeletal: General: Normal range of motion. Cervical back: Normal range of motion and neck supple. Lymphadenopathy: Cervical: No cervical adenopathy. Skin: General: Skin is warm and dry. Capillary Refill: Capillary refill takes less than 2 seconds. Neurological: General: No focal deficit present. Mental Status: She is alert and oriented to person, place, and time. Deep Tendon Reflexes: Reflexes are normal and symmetric. Psychiatric: Mood and Affect: Mood normal. Behavior: Behavior normal. Thought Content: Thought content normal. ED Course Procedures Medical Decision Making Kristie Harrell APRN CNP 05/23/23 [address]10 [facility] Work Phone: 05-23-2023 Emergency department Triage note Pt arrives to the ED via private vehicle. PT ambulates to room without difficulty. Pt his clutching at left side of her chest. Pt c/o left sided chest pain that started approx 20 minutes ago. Pt states that it radiates down her left arm and into her back. Pt c/o nausea, but denies any vomiting. Pt denies any cardiac history. Pt states that she was taking down the nicole tree when it started. Pt is A&Ox4. Pt appears SOB and appears uncomfortable. [facility] 05-23-2023 Physician Emergency department Note ED Diagnosis and Summary 1. Acute chest pain ED Summary 32F, obese, doesn't smoker, presents with sudden onset of left-sided pressure-like chest pain which started shortly prior to ED arrival. Ms. Arnold was given nitro in the ED with resolution of her pain. Exam: well-appearing, afebrile, stable vitals, easy respirations, RRR, no murmur, clear breath sounds. I have personally seen and examined this patient in conjunction with the ED HAMIDA. I have fully participated in the care of this patient. I have reviewed all pertinent clinical information, including the patient's medical and surgical history, medications, allergies, and the ED HAMIDA's physical exam findings. The Medical Decision Making section at the end of this document is the result of this process and reflects my plan of care and disposition. History Chief Complaint Patient presents with Chest Pain Shortness of Breath Patient's medications, allergies, past medical, surgical, social and family histories were reviewed and updated as appropriate. History reviewed. No pertinent past medical history. History reviewed. No pertinent surgical history. No family history on file. Social History Socioeconomic History Marital status: Tobacco Use Smoking status: Never Smokeless tobacco: Current Types: Chew Vaping Use Vaping Use: Never used Substance and Sexual Activity Alcohol use: Yes Comment: rarely Drug use: No Sexual activity: Not Currently Current Facility-Administered Medications Medication Dose Route Frequency Provider Last Rate Last Admin acetaminophen (TYLENOL) tablet 650 mg 650 mg Oral Q4H PRN Karen Choudhary APRN CNP aluminum-magnesium hydroxide 200-200 MG/5ML suspension 30 mL 30 mL Oral Q6H PRN Karen Choudhary APRN CNP calcium carbonate (TUMS) chewable tablet 1,000 mg 1,000 mg Oral Q4H PRN Kraen Choudhary APRN CNP For electrolyte abnormalities subsequent to initial labs (refer to the [facility] Electrolyte Replacement Orders) Other PRN Karen Choudhary APRN CNP melatonin tablet 10 mg 10 mg Oral Nightly PRN Karen Choudhary APRN CNP nitroGLYCERIN (NITROSTAT) 0.4 MG SL tablet 0.4 mg 0.4 mg Sublingual Q5 Min PRN Francia Pelletier MD 0.4 mg at 05/23/23 2301 ondansetron hcl (ZOFRAN) injection 4 mg 4 mg IV Push Q6H PRN Karen Choudhary APRN CNP potassium chloride SA (K-DUR,KLOR-CON M20) CR tablet 20 mEq 20 mEq Oral Once Francia Pelletier MD No Known Allergies The history is provided by the patient and medical records. Review of Systems Physical Exam ED Triage Vitals [05/23/23 1621] BP 137/71 Heart Rate 80 Resp 27 Temp 98.3 F (36.8 C) Temp src Oral SpO2 98 % Weight 250 lb (113.4 kg) Height 5' 3 (1.6 m) BMI (Calculated) 44.3 Physical Exam ED Course Procedures Medical Decision Making ED evaluation notable for an initial troponin of 0.037 with normalization upon a recheck. EKG without acute ischemic changes. D-dimer normal. CXR without acute process. ASA given and Ms. Arnold will be admitted to the [facility] CDU. Problems Addressed: Acute chest pain: acute illness or injury Amount and/or Complexity of Data Reviewed Labs: ordered. Decision-making details documented in ED Course. Radiology: ordered. Decision-making details documented in ED Course. ECG/medicine tests: ordered and independent interpretation performed. Decision-making details documented in ED Course. Risk OTC drugs. Decision regarding hospitalization. Heart Score History: Moderately Suspicious ECG: Normal Age: < or equal to 45 years Risk Factors: 1 or 2 Risk Factors Troponin: > 1 but < 3 x Normal Limit Score: 3 Scott Chambers MD 05/24/23 0738 [facility] 07-07-2022 Note HNO ID: [id number] Author: Ramo Johnson MD Service: ? Author Type: Physician Type: Progress Notes Filed: 07/07/2022 9:31 AM Note Text: Patient presents with: Sore Throat: Fever, body aches, chills, bilateral ear pain x 1 day HPI: Feeling sick since yesterday Positive symptoms: Sore throat, Earache, Fever, Chills, Body Aches, little Cough, Negative symptoms: Nasal Congestion, Rhinorrhea, OTC: Cold Medicine Has had COVID illness 3 times previously. MEDICATIONS: No current outpatient medications on file. No current facility-administered medications for this visit. ALLERGIES: ALLERGIES Allergen Reactions Diethyltoluamide (D* Hives VITALS: BP 118/76 Pulse 118 Temp (!) 38.2 ?C (100.8 ?F) Resp 21 Wt 117.3 kg (258 lb 9.6 oz) SpO2 99% PHYSICAL EXAM: GEN: mildly ill appearing HEENT: PERRL, EOMI, conjunctiva clear Ears: canals clear. TMs without erythema, bulge, or effusion Sinuses: non-tender frontal sinus, non-tender maxillary sinuses Throat: moist mucous membranes, pharyngeal erythema, no exudate Neck: supple, no thyromegaly, tender anterior lymphadenopathy HEART: regular rate and rhythm, no murmurs LUNGS: clear to auscultation, no wheezes or crackles, no increased WOB ASSESSMENT/PLAN: 1. Streptococcal pharyngitis - ICD9: 034.0, ICD10: J02.0 (primary diagnosis) - PENICILLIN V POTASSIUM 500 MG TABLET 2. Sore throat - ICD9: 462, ICD10: J02.9 - Discussed supportive care treatment with analgesia. - Contagious dz precautions discussed- including considered contagious until on antibiotics for 24 hours - STREP A MOLECULAR (POC) Ramo Johnson MD [facility] 07-07-2022 History of Presen t illness Narrative Patient presents with: Sore Throat: Fever, body aches, chills, bilateral ear pain x 1 day HPI: Feeling sick since yesterday Positive symptoms: Sore throat, Earache, Fever, Chills, Body Aches, little Cough, Negative symptoms: Nasal Congestion, Rhinorrhea, OTC: Cold Medicine Has had COVID illness 3 times previously. MEDICATIONS: No current outpatient medications on file. No current facility-administered medications for this visit. ALLERGIES: ALLERGIES Allergen Reactions Diethyltoluamide (D* Hives VITALS: BP 118/76 Pulse 118 Temp (!) 38.2 C (100.8 F) Resp 21 Wt 117.3 kg (258 lb 9.6 oz) SpO2 99% PHYSICAL EXAM: GEN: mildly ill appearing HEENT: PERRL, EOMI, conjunctiva clear Ears: canals clear. TMs without erythema, bulge, or effusion Sinuses: non-tender frontal sinus, non-tender maxillary sinuses Throat: moist mucous membranes, pharyngeal erythema, no exudate Neck: supple, no thyromegaly, tender anterior lymphadenopathy HEART: regular rate and rhythm, no murmurs LUNGS: clear to auscultation, no wheezes or crackles, no increased WOB ASSESSMENT/PLAN: 1. Streptococcal pharyngitis - ICD9: 034.0, ICD10: J02.0 (primary diagnosis) - PENICILLIN V POTASSIUM 500 MG TABLET 2. Sore throat - ICD9: 462, ICD10: J02.9 - Discussed supportive care treatment with analgesia. - Contagious dz precautions discussed- including considered contagious until on antibiotics for 24 hours - STREP A MOLECULAR (POC) Ramo Johnson MD documented in this encounter [facility] 06-02-2022 Hospital Discharg e instructions Patient Education 06/02/2022 14:33:15 Leukocytosis Leukocytosis Leukocytosis means that a person has more white blood cells than normal. White blood cells are made in the bone marrow. Bone marrow is the spongy tissue inside bones. The main job of white blood cells is to fight infection. Having too many white blood cells is a common condition. It can develop as a result of many types of medical problems. What are the causes? Leukocytosis may be caused by various conditions. In some cases, the bone marrow is normal but is still making too many white blood cells. This can be due to: Infection. Injury. Physical stress. Emotional stress. Surgery. Allergic reactions. Tumors that do not start in the blood or bone marrow. An inherited disease. Certain medicines. and labor. In other cases, a person may have a bone marrow disorder that is causing the body to make too many white blood cells. Bone marrow disorders include: Leukemia. This is a type of blood cancer. Myeloproliferative disorders. These disorders cause blood cells to grow abnormally. What are the signs or symptoms? Often, this condition causes no symptoms. Some people may have symptoms due to the medical condition that is causing their leukocytosis. These symptoms may include: Bleeding. Bruising. Fever. Night sweats. Swollen lymph nodes. An enlarged spleen. Repeated infections. Weakness. Weight loss. How is this diagnosed? This condition is diagnosed with blood tests. It is often found when blood is tested as part of a routine physical exam. You may have other tests to help determine why you have too many white blood cells. These tests may include: A complete blood count (CBC). This test measures all the types of blood cells in your body. Chest X-rays, urine tests, or other tests to look for signs of infection. Bone marrow aspiration. For this test, a needle is put into your bone. Cells from the bone marrow are removed through the needle and examined under a microscope. Other tests on the blood or bone marrow sample. CT scan, bone scan, or other imaging tests. How is this treated? Usually, treatment is not needed for leukocytosis. However, if an infection, cancer, bone marrow disorder, or other serious problem is causing your leukocytosis, it will need to be treated. Treatment may include: Regular monitoring of your white blood cell count to look for changes. Antibiotic medicine if you have a bacterial infection. Bone marrow transplant. This treatment replaces your diseased bone marrow with healthy cells that will grow new bone marrow. Chemotherapy or biological therapies such as the use of antibodies. These treatments may be used to kill cancer cells or to decrease the number of white blood cells. Follow these instructions at home: Medicines Take olow-cse-wtzrrdq and prescription medicines only as told by your health care provider. If you were prescribed an antibiotic medicine, take it as told by your health care provider. Do not stop taking the antibiotic even if you start to feel better. Eating and drinking Eat foods that are low in saturated fats and high in fiber. Eat plenty of fruits and vegetables. Drink enough fluid to keep your urine pale yellow. Limit your intake of caffeine and alcohol. General instructions Maintain a healthy weight. Ask your health care provider what weight is best for you. Do 30 minutes of exercise at least 5 times each week. Check with your health care provider before you start a new exercise routine. Follow any safety precautions as told by your health care provider. This may be needed if you are at increased risk for infection or bleeding because of your condition. Do not use any products that contain nicotine or tobacco, such as cigarettes, e-cigarettes, and chewing tobacco. If you need help quitting, ask your health care provider. Keep all follow-up visits as told by your health care provider. This is important. Contact a health care provider if you: Feel weak or more tired than usual. Develop chills, a cough, or nasal congestion. Have a fever. Lose weight without trying. Have night sweats. Bruise easily. Have new or worsening symptoms. Get help right away if you: Bleed more than normal. Have chest pain. Have trouble breathing. Have uncontrolled nausea or vomiting. Feel dizzy or light-headed. Summary Leukocytosis means that a person has more white blood cells than normal. This condition often causes no symptoms. This condition may be caused by various conditions. If an infection, cancer, bone marrow disorder, or other serious problem is causing your leukocytosis, it will need to be treated. Keep all follow-up visits as told by your health care provider. This is important. This information is not intended to replace advice given to you by your health care provider. Make sure you discuss any questions you have with your health care provider. Document Released: 04/27/2012 Document Revised: 02/01/2019 Document Reviewed: 02/01/2019 [employer] Patient Education 2020 [employer]. 06/02/2022 14:33:12 Colitis Colitis Colitis is inflammation of the colon. Colitis may last a short time (be acute), or it may last a long time (become chronic). What are the causes? This condition may be caused by: Viruses. Bacteria. Reaction to medicine. Certain autoimmune diseases such as Crohn's disease or ulcerative colitis. Radiation treatment. Decreased blood flow to the bowel (ischemia). What are the signs or symptoms? Symptoms of this condition include: Watery diarrhea. Passing bloody or tarry stool. Pain. Fever. Vomiting. Tiredness (fatigue). Weight loss. Bloating. Abdominal pain. Having fewer bowel movements than usual. A strong and sudden urge to have a bowel movement. Feeling like the bowel is not empty after a bowel movement. How is this diagnosed? This condition is diagnosed with a stool test or a blood test. You may also have other tests, such as: X-rays. CT scan. Colonoscopy. Endoscopy. Biopsy. How is this treated? Treatment for this condition depends on the cause. The condition may be treated by: Resting the bowel. This involves not eating or drinking for a period of time. Fluids that are given through an IV. Medicine for pain and diarrhea. Antibiotic medicines. Cortisone medicines. Surgery. Follow these instructions at home: Eating and drinking Follow instructions from your health care provider about eating or drinking restrictions. Drink enough fluid to keep your urine pale yellow. Work with a dietitian to determine which foods cause your condition to flare up. Avoid foods that cause flare-ups. Eat a well-balanced diet. General instructions If you were prescribed an antibiotic medicine, take it as told by your health care provider. Do not stop taking the antibiotic even if you start to feel better. Take kyla-fpd-fkfdsby and prescription medicines only as told by your health care provider. Keep all follow-up visits as told by your health care provider. This is important. Contact a health care provider if: Your symptoms do not go away. You develop new symptoms. Get help right away if you: Have a fever that does not go away with treatment. Develop chills. Have extreme weakness, fainting, or dehydration. Have repeated vomiting. Develop severe pain in your abdomen. Pass bloody or tarry stool. Summary Colitis is inflammation of the colon. Colitis may last a short time (be acute), or it may last a long time (become chronic). Treatment for this condition depends on the cause and may include resting the bowel, taking medicines, or having surgery. If you were prescribed an antibiotic medicine, take it as told by your health care provider. Do not stop taking the antibiotic even if you start to feel better. Get help right away if you develop severe pain in your abdomen. Keep all follow-up visits as told by your health care provider. This is important. This information is not intended to replace advice given to you by your health care provider. Make sure you discuss any questions you have with your health care provider. Document Released: 06/16/2005 Document Revised: 11/09/2018 Document Reviewed: 11/09/2018 [employer] Patient Education [employer]. Follow Up Care 05/31/2022 23:00:31 With:GINA HOFF MD Address: [address] [facility] [address] [place] [address]- [phone] When:06/15/2022 09:45:00 Comments:Follow-up as scheduledTHIS IS AN INITIAL APPOINTMENT: PLEASE BRING PHOTO ID, INSURANCE CARD, LIST OF MEDICATIONS AND WEAR A MASK. tHANK YOU. [facility] 06-02-2022 Note Discharge Instructions Thank you for allowing [facility] to assist you with your healthcare needs. The following is important discharge information regarding your hospital visit. Your Care Team [facility] Your Diagnosis Colitis Leukocytosis Body aches Dizziness Weakness or fatigue What to do next Follow Up Appointments Follow Up with GINA HOFF MD When 06/15/2022 09:45 AM EST Why: Follow-up as scheduled THIS IS AN INITIAL APPOINTMENT: PLEASE BRING PHOTO ID, INSURANCE CARD, LIST OF MEDICATIONS AND WEAR A MASK. tHANK YOU. Where: [id number] [facility] [address] [place] [address] [phone] The Following Activity and Diet Have Been Ordered for You Discharge Activity - Ordered -- Resume your pre-hospitalization activity, 06/02/22 14:35:00 EST Discharge Diet - Ordered -- No changes were made to your diet during your hospital stay. Please resume your pre hospitalization diet on discharge., 06/02/22 14:35:00 EST Allergies misc non-codified allergy (RASH) Medications Please ask your primary doctor or pharmacist before taking any other medication not listed, including over the counter drugs, herbal medications, vitamins and or supplements as they may interact with your home medications. What How Much When Instructions Last Dose New ciprofloxacin (Cipro 500 mg oral tablet) 1 tab(s) by mouth Every 12 hours Duration: 10 Days Pickup at [facility] #[id number] 06/02/22 @1026AM New metroNIDAZOLE (metroNIDAZOLE 500 mg oral tablet) 1 tab(s) by mouth Every 8 hours Duration: 10 Days Pickup at [facility] #[id number] 06/02/22 @844AM New ondansetron (Zofran 4 mg oral tablet) 1 tab(s) by mouth Every 4 hours as needed for Nausea/Vomiting Duration: 5 Days Pickup at [facility] #[id number] 06/02/22 @217PM New pantoprazole (Protonix 20 mg oral enteric coated tablet) 1 tab(s) by mouth Once a day before a meal Duration: 14 Days Pickup at [facility] #[id number] 06/02/22 @530AM Pharmacy Information [facility] #[id number]: [address], [place] [id number] [phone] Please take this list to your next doctor s visit. Bring all medications you take, including over the counter medications, herbals and other supplements with you to your doctor s visit. Patients and families are reminded to discard old lists and to update any records with all medication providers or retail pharmacies. Education Materials Leukocytosis Leukocytosis means that a person has more white blood cells than normal. White blood cells are made in the bone marrow. Bone marrow is the spongy tissue inside bones. The main job of white blood cells is to fight infection. Having too many white blood cells is a common condition. It can develop as a result of many types of medical problems. What are the causes? Leukocytosis may be caused by various conditions. In some cases, the bone marrow is normal but is still making too many white blood cells. This can be due to: Infection. Injury. Physical stress. Emotional stress. Surgery. Allergic reactions. Tumors that do not start in the blood or bone marrow. An inherited disease. Certain medicines. and labor. In other cases, a person may have a bone marrow disorder that is causing the body to make too many white blood cells. Bone marrow disorders include: Leukemia. This is a type of blood cancer. Myeloproliferative disorders. These disorders cause blood cells to grow abnormally. What are the signs or symptoms? Often, this condition causes no symptoms. Some people may have symptoms due to the medical condition that is causing their leukocytosis. These symptoms may include: Bleeding. Bruising. Fever. Night sweats. Swollen lymph nodes. An enlarged spleen. Repeated infections. Weakness. Weight loss. How is this diagnosed? This condition is diagnosed with blood tests. It is often found when blood is tested as part of a routine physical exam. You may have other tests to help determine why you have too many white blood cells. These tests may include: A complete blood count (CBC). This test measures all the types of blood cells in your body. Chest X-rays, urine tests, or other tests to look for signs of infection. Bone marrow aspiration. For this test, a needle is put into your bone. Cells from the bone marrow are removed through the needle and examined under a microscope. Other tests on the blood or bone marrow sample. CT scan, bone scan, or other imaging tests. How is this treated? Usually, treatment is not needed for leukocytosis. However, if an infection, cancer, bone marrow disorder, or other serious problem is causing your leukocytosis, it will need to be treated. Treatment may include: Regular monitoring of your white blood cell count to look for changes. Antibiotic medicine if you have a bacterial infection. Bone marrow transplant. This treatment replaces your diseased bone marrow with healthy cells that will grow new bone marrow. Chemotherapy or biological therapies such as the use of antibodies. These treatments may be used to kill cancer cells or to decrease the number of white blood cells. Follow these instructions at home: Medicines Take pjib-ilh-fmcqatn and prescription medicines only as told by your health care provider. If you were prescribed an antibiotic medicine, take it as told by your health care provider. Do not stop taking the antibiotic even if you start to feel better. Eating and drinking Eat foods that are low in saturated fats and high in fiber. Eat plenty of fruits and vegetables. Drink enough fluid to keep your urine pale yellow. Limit your intake of caffeine and alcohol. General instructions Maintain a healthy weight. Ask your health care provider what weight is best for you. Do 30 minutes of exercise at least 5 times each week. Check with your health care provider before you start a new exercise routine. Follow any safety precautions as told by your health care provider. This may be needed if you are at increased risk for infection or bleeding because of your condition. Do not use any products that contain nicotine or tobacco, such as cigarettes, e-cigarettes, and chewing tobacco. If you need help quitting, ask your health care provider. Keep all follow-up visits as told by your health care provider. This is important. Contact a health care provider if you: Feel weak or more tired than usual. Develop chills, a cough, or nasal congestion. Have a fever. Lose weight without trying. Have night sweats. Bruise easily. Have new or worsening symptoms. Get help right away if you: Bleed more than normal. Have chest pain. Have trouble breathing. Have uncontrolled nausea or vomiting. Feel dizzy or light-headed. Summary Leukocytosis means that a person has more white blood cells than normal. This condition often causes no symptoms. This condition may be caused by various conditions. If an infection, cancer, bone marrow disorder, or other serious problem is causing your leukocytosis, it will need to be treated. Keep all follow-up visits as told by your health care provider. This is important. This information is not intended to replace advice given to you by your health care provider. Make sure you discuss any questions you have with your health care provider. Document Released: 04/27/2012 Document Revised: 02/01/2019 Document Reviewed: 02/01/2019 [employer] Patient Education 2020 [employer]. Colitis Colitis is inflammation of the colon. Colitis may last a short time (be acute), or it may last a long time (become chronic). What are the causes? This condition may be caused by: Viruses. Bacteria. Reaction to medicine. Certain autoimmune diseases such as Crohn's disease or ulcerative colitis. Radiation treatment. Decreased blood flow to the bowel (ischemia). What are the signs or symptoms? Symptoms of this condition include: Watery diarrhea. Passing bloody or tarry stool. Pain. Fever. Vomiting. Tiredness (fatigue). Weight loss. Bloating. Abdominal pain. Having fewer bowel movements than usual. A strong and sudden urge to have a bowel movement. Feeling like the bowel is not empty after a bowel movement. How is this diagnosed? This condition is diagnosed with a stool test or a blood test. You may also have other tests, such as: X-rays. CT scan. Colonoscopy. Endoscopy. Biopsy. How is this treated? Treatment for this condition depends on the cause. The condition may be treated by: Resting the bowel. This involves not eating or drinking for a period of time. Fluids that are given through an IV. Medicine for pain and diarrhea. Antibiotic medicines. Cortisone medicines. Surgery. Follow these instructions at home: Eating and drinking Follow instructions from your health care provider about eating or drinking restrictions. Drink enough fluid to keep your urine pale yellow. Work with a dietitian to determine which foods cause your condition to flare up. Avoid foods that cause flare-ups. Eat a well-balanced diet. General instructions If you were prescribed an antibiotic medicine, take it as told by your health care provider. Do not stop taking the antibiotic even if you start to feel better. Take srla-oay-kwyefns and prescription medicines only as told by your health care provider. Keep all follow-up visits as told by your health care provider. This is important. Contact a health care provider if: Your symptoms do not go away. You develop new symptoms. Get help right away if you: Have a fever that does not go away with treatment. Develop chills. Have extreme weakness, fainting, or dehydration. Have repeated vomiting. Develop severe pain in your abdomen. Pass bloody or tarry stool. Summary Colitis is inflammation of the colon. Colitis may last a short time (be acute), or it may last a long time (become chronic). Treatment for this condition depends on the cause and may include resting the bowel, taking medicines, or having surgery. If you were prescribed an antibiotic medicine, take it as told by your health care provider. Do not stop taking the antibiotic even if you start to feel better. Get help right away if you develop severe pain in your abdomen. Keep all follow-up visits as told by your health care provider. This is important. This information is not intended to replace advice given to you by your health care provider. Make sure you discuss any questions you have with your health care provider. Document Released: 06/16/2005 Document Revised: 11/09/2018 Document Reviewed: 11/09/2018 [employer] Patient Education 2020 [employer] Additional Information VACCINATE! IT SAVES LIVES! Members of the community who have not yet received the COVID-19 vaccine and would like to receive it can visit one of [facility] vaccine clinics. There are many vaccine clinic locations within the [facility]. For locations and available times, please visit [email or web address] [email or web address]/. It is important to note that some COVID mobile vaccine clinics are held outdoors and may be canceled in rainy or stormy conditions. To learn more about pediatric vaccinations (ages 5-11), we invite you to visit the [facility] webpage. [email or web address]/ [email or web address]-Qjwge-Kdppkhnzslh-Fr glcpwdwm-Luhyk-Syvhycxgu.html To learn more about the COVID-19 vaccine, we invite you to visit the [facility] website for a list of frequently asked questions. [email or web address] -Frequently_[email or web address]-Questions.pdf [facility] ([facility]) Patient Portal Access Instructions: Stay connected with your healthcare team and access your personal medical information anytime with the [facility] ([facility]) Patient Portal.If you would like a full copy of your medical records, please contact the [facility] Medical Records Department, Tuesday through Tuesday between 8a.m. and 4:30p.m. Please follow the directions below to access the portal: 1.Access the email account you provided upon registration to the hospital.2.Look for an invitation email from [facility].3.Open the email and access the invitation link: Accept Invitation to [facility] ([facility])4.Fill in the required briceno to create your account. Sign into [email or web address] with your username and password that you created in the above steps to stay up to date. You can then view a summary of results, a summary of your visits, and the ability to download your summaries to your computer or send the information securely to a physician. Remember that your healthcare information is confidential, so carefully consider who you will allow to register on the [facility] ([facility]) Patient Portal for access to your information. You can also access the [facility] Patient Portal on the [employer]. Simply click on Health Records under Health Data and then click on the [employer] logo. HOW TO SAFELY DISPOSE OF PRESCRIPTION MEDICATIONS Please use one of the following methods to safely dispose of your unused medications. 1.Use a drug disposal kit: the drug disposal pouch allows you to safely discard your old and unused drugs. Ask your nurse to give you one when you are discharged.2.Visit a local take-back location: Many local pharmacies and police departments have programs that collect old and unwanted prescription drugs. Call your local pharmacy or go to http://SlideRocket.CoinKeeper/8Q2Jo8l to find one close to you.3.Make use of household items: Use cat litter or old coffee grounds to dispose medications if other options are not available. Mix your drugs with these household products, seal them in an airtight container and throw it into the garbage. Call [facility]: [phone] to be sure your drugs can be disposed of in this way. Some medicines may require a different approach.4.Never flush your medications down the toilet. IF YOU HAVE BEEN PRESCRIBED AN OPIOID FOR PAIN If you have been prescribed an opioid (such as hydrocodone, oxycodone or morphine), it is critical to understand the possible side effects and risks of opioid pain medications. Even when taken as directed, opioids can have several side effects including: Tolerance, meaning you might need to take more of a medication for the same pain relief. Nausea, vomiting and/or constipation. Sleepiness, dizziness, dry mouth, confusion, depression or itching. Physical dependence, meaning you have withdrawal symptoms when a medication is stopped, can develop within a few days. KNOW YOUR RESPONSIBILITIES It is important to know exactly how much and how often to take the opioid pain medications you are prescribed. Never take opioids in higher amounts or more often than prescribed. Do not combine opioids with alcohol or other drugs that cause drowsiness, such as benzodiazepines, also known as benzos, including diazepam and alprazolam, muscle relaxants or sleep aids. Never sell or share prescription opioids. This is illegal. Store opioids in a secure place and out of reach of others (including children, family, friends and visitors). The last page of this document has been signed and retained as a CHART COPY. Signatures Patient Education Materials Leukocytosis Colitis Medication Leaflets My discharge plan and instructions have been reviewed and explained to me and I,ARNOLD, RADHA R understand my current condition and have read and understand these discharge instructions. I have received a written copy of the plan/instructions. If I have questions, I am aware that I should contact my doctor. Patient/Travel Ticketing Reviewer Signature: Date/Time: Relationship to Patient: Witness Name/Signature: Date/Time: [facility] 06-01-2022 Note Date of Service 06/01/2022 Chief Complaint states aoubt 9pm got dizzy, had some cp and nausea. feels weak and achy all over History of Present Illness 31-year-old female with past medical history significant for depression, multiple suicide attempts obesity. Patient presented to [facility] emergency department on 06/01/2022 with dizziness nausea, vomiting, abdominal pain, diarrhea. In the emergency department patient was afebrile, tachycardic, normotensive with adequate oxygen saturations on room air. White blood cell count 23,000. No bandemia. Lactic acid initially 3.5, down to 1.7. alk phos elevated to [address] abdomen and pelvis shows nonspecific fluid-filled terminal ileum and colon that may be seen with early enterocolitis. No other acute process identified. Denies any fever or chills. Admits headache, lightheadedness. Denies any chest pain or palpitations. No cough, dyspnea, wheeze. Epigastric pain. Admits nausea, no vomiting now. Has had episodes of diarrhea. No mucus or blood in stool. Denies any urinary frequency, urgency, dysuria. Review of Systems See HPI for specific ROS. All other systems reviewed and negative. Physical Exam Vitals and Measurements T: 36.7 C (Oral) TMIN: 36.7 C (Oral) TMAX: 37 C (Oral) HR: 75(Monitored) RR: 18 BP: 121/74 SpO2: 95% HT: 160 cm WT: 113.6 kg BMI: 44.38 Weight Dosing Weight: 113.6 kg (06/01/22) GEN: Appears chronically ill EYES: No conjunctival erythema, drainage. EOMI EARS: Hearing grossly intact. NOSE: No nasal discharge. THROAT: Oral cavity and pharynx pink and moist. CHEST: Normal S1 and S2. Rhythm is regular. Clear to auscultation, without rales, rhonchi, wheezing. ABD: Positive bowel sounds x 4 quads. Soft, nondistended, diffusely tender. No rebound tenderness or guarding. EXT: No significant deformity or joint abnormality. No edema. Peripheral pulses intact. NEURO: Sensation grossly intact SKIN: Skin color normal PSYCH: The mental examination revealed the patient was alert and oriented x 4 Lab Results 05/31 23:52 WBC: 23.2 H Hgb: 14.2 Hct: 42.7 Platelet: 486 H Neutrophil %: 83.4 H Glucose Level: 132 H Sodium Level: 140 Potassium Level: 3.9 BUN: 17 Creatinine Lvl (s): 0.98 Imaging Results and Diagnostics CT Abd/Pelvis w/ IV Contrast Only Result Date: June 01, 2022 Verified By: PEDRO PABLO CHIRINOS, ECTOR Ryder CLINICAL STATEMENT: IMPRESSION: Nonspecific fluid-filled terminal ileum and colon may be seen with earlyenterocolitis. No other acute process is identified. Hepatic steatosis. I have personally reviewed the images of this examination, and agree with theresident's findings and interpretation. Assessment/Plan 1. Colitis 2. Leukocytosis Developing colitis add Cipro 400 mg IV twice daily and metronidazole 500 mg every 8 hours. Keep patient n.p.o. with ice chips only. Add Toradol and Dilaudid as needed for pain. LR at 100 mL/h. Leukocytosis White blood cell count 23,000. No fevers. Lactic acid down to 1.7 from 3.5. Patient is hemodynamically stable. DVT prophylaxis: SCDs Labs, diagnostics, and progress notes reviewed as noted in HPI Code Status: Full code Plan of care discussed with patient. All questions answered. Patient verbalizes understanding is agreeable to plan of care. This dictation was performed using voice recognition software and may include grammatical and/or spelling errors. Problem List/Past Medical History Ongoing Colitis Suicidal ideation Historical No qualifying data Procedure/Surgical History Reconstruction Oral surgery Medications No qualifying data available Allergies misc non-codified allergy (RASH) Social History Smoking Status - 04/26/2016 Never smoker Alcohol Use: Never., 06/01/2022 Home/Environment Domestic Concerns: None. Living situation: Home with assistance. Safe place to go: Yes. Lives In: Multilevel home., 06/01/2022 Nutrition/Health Type of diet: Regular. Appetite Fair. Eating Difficulties None., 06/01/2022 Substance Abuse Use: Never., 06/01/2022 Tobacco Nicotine Use: CHEW. Type: Oral (Snuff, Chew)., 06/01/2022 Family History Cancer: Grandparent. Diabetes: Mother and Grandparent. HTN - Hypertension: Mother. Stroke: Grandparent. Immunizations hepatitis B pediatric vaccine: 0 unknown unit (09/11/09) hepatitis B pediatric vaccine: 0 unknown unit (01/04/03) Human Papillomavirus Quadval: 0 unknown unit (11/13/09) measles/mumps/rubella virus vaccine: 0 unknown unit (12/21/95) tetanus/diphth/pertuss (Tdap) adult/adol: 0 unknown unit (09/11/09) Code Status Code Status - Ordered -- 06/01/22 7:15:00 EST, Full Code, Constant Order Digitally Signed by ANTOINETTE VERA on 06/01/2022 07:50 PM [facility] 1. Colitis 2. Leukocytosis Developing colitis add Cipro 400 mg IV twice daily and metronidazole 500 mg every 8 hours. Keep patient n.p.o. with ice chips only. Add Toradol and Dilaudid as needed for pain. LR at 100 mL/h. Leukocytosis White blood cell count 23,000. No fevers. Lactic acid down to 1.7 from 3.5. Patient is hemodynamically stable. DVT prophylaxis: SCDs Labs, diagnostics, and progress notes reviewed as noted in HPI Code Status: Full code Plan of care discussed with patient. All questions answered. Patient verbalizes understanding is agreeable to plan of care. This dictation was performed using voice recognition software and may include grammatical and/or spelling errors. [facility] 01-10-2023 Note ORIGINAL EXAMINATION: CT OF THE ABDOMEN AND PELVIS WITH CONTRAST 06/01/2022 12:55 am TECHNIQUE: CT of the abdomen and pelvis was performed with the administration of intravenous contrast. Multiplanar reformatted images are provided for review. Automated exposure control, iterative reconstruction, and/or weight based adjustment of the mA/kV was utilized to reduce the radiation dose to as low as reasonably achievable. COMPARISON: None. HISTORY: ORDERING SYSTEM PROVIDED HISTORY: Reason for Exam: Mid abdominal pain FINDINGS: Visualized lung bases are clear. Heart is normal in size without significant pericardial effusion or thickening. Liver is normal in size. There is diffuse hypoattenuation in the liver likely due to fatty infiltration. Spleen, pancreas and adrenal glands are unremarkable. Kidneys are symmetric in size and enhancement. No hydronephrosis no urinary calculi. Bladder is under distended which limits its evaluation. Uterus is been grossly normal. No adnexal mass. Small bowel, colon and appendix are normal in caliber. Fluid full terminal ileum and colon. No definite bowel wall thickening, intraperitoneal free air or focal fluid collection. No lymphadenopathy. Nonaneurysmal abdominal aorta. No acute osseous or soft tissue findings. Small fat containing umbilical hernia. IMPRESSION: Nonspecific fluid-filled terminal ileum and colon may be seen with early enterocolitis. No other acute process is identified. Hepatic steatosis. I have personally reviewed the images of this examination, and agree with the resident's findings and interpretation. Interpreted by: Ector Cabello MD Preliminary Report By: Fallon Zhao Electronically signed By Ector Cabello MD Dictated Date: 06/01/2022 12:56:19 AM Prelim Date: 06/01/2022 1:11:59 AM Sign Date: 06/01/2022 1:24:38 AM Ordering Provider: NETTA CACERES [facility]01-10-2023 Note ORIGINAL EXAMINATION: CT OF THE ABDOMEN AND PELVIS WITH CONTRAST 06/01/2022 12:55 am TECHNIQUE: CT of the abdomen and pelvis was performed with the administration of intravenous contrast. Multiplanar reformatted images are provided for review. Automated exposure control, iterative reconstruction, and/or weight based adjustment of the mA/kV was utilized to reduce the radiation dose to as low as reasonably achievable. COMPARISON: None. HISTORY: ORDERING SYSTEM PROVIDED HISTORY: Reason for Exam: Mid abdominal pain FINDINGS: Visualized lung bases are clear. Heart is normal in size without significant pericardial effusion or thickening. Liver is normal in size. There is diffuse hypoattenuation in the liver likely due to fatty infiltration. Spleen, pancreas and adrenal glands are unremarkable. Kidneys are symmetric in size and enhancement. No hydronephrosis no urinary calculi. Bladder is under distended which limits its evaluation. Uterus is been grossly normal. No adnexal mass. Small bowel, colon and appendix are normal in caliber. Fluid full terminal ileum and colon. No definite bowel wall thickening, intraperitoneal free air or focal fluid collection. No lymphadenopathy. Nonaneurysmal abdominal aorta. No acute osseous or soft tissue findings. Small fat containing umbilical hernia. IMPRESSION: Nonspecific fluid-filled terminal ileum and colon may be seen with early enterocolitis. No other acute process is identified. Hepatic steatosis. I have personally reviewed the images of this examination, and agree with the resident's findings and interpretation. Interpreted by: Ector Cabello MD Preliminary Report By: Fallon Zhao Electronically signed By Ector Cabello MD Dictated Date: 06/01/2022 12:56:19 AM Prelim Date: 06/01/2022 1:11:59 AM Sign Date: 06/01/2022 1:24:38 AM Ordering Provider: [facility]12-04-2022 Note. MICRO - Microbiology PROCEDURE: Blood Culture (bacterial) [O1 *1] SOURCE: Blood BODY SITE: COLLECTED DATE/TIME: 04/19/2022 22:40 EST RECEIVED DATE/TIME: 04/20/2022 14:01 EST START DATE/TIME: 04/20/2022 14:01 EST FREE TEXT SOURCE: 1 FINAL REPORTS Final Report [] Verified Date/Time/Personnel: 04/25/2022 14:59 EST Blood Culture: No Growth at 5 days. PRELIMINARY REPORTS Preliminary Report [] Verified Date/Time/Personnel: 04/20/2022 14:59 EST Culture has been received in lab and is no growth to date. Routine cultures are held for 5 days. Order Comments O1: Blood Culture (bacterial) fax results to [phone] Performing Locations *1: This test was performed at: [facility], [address] [place] [address], [facility]- , [facility] ([place])04-25-2022 Note. MICRO - Microbiology PROCEDURE: Blood Culture (bacterial) [O1 *1] SOURCE: Blood BODY SITE: COLLECTED DATE/TIME: 04/19/2022 22:55 EST RECEIVED DATE/TIME: 04/20/2022 14:01 EST START DATE/TIME: 04/20/2022 14:02 EST FREE TEXT SOURCE: 2 FINAL REPORTS Final Report [] Verified Date/Time/Personnel: 04/25/2022 14:59 EST Blood Culture: No Growth at 5 days. PRELIMINARY REPORTS Preliminary Report [] Verified Date/Time/Personnel: 04/20/2022 14:59 EST Culture has been received in lab and is no growth to date. Routine cultures are held for 5 days. Order Comments O1: Blood Culture (bacterial) fax results to [phone] Performing Locations *1: This test was performed at: [address], [facility]- , [facility] ([place])Evaluation note* Diagnosis Streptococcal pharyngitis- Primary Streptococcal sore throat Sore throat Acute pharyngitis [facility] Acute chest pain- Primary Chest pain, unspecified Acute chest pain Chest pain, unspecified [facility] N[facility]ative No data available for this section [facility] Reason for referral (narrative)* Consultation (Routine) - Open Specialty Diagnoses / Procedures Referred By Brannon ribeiro Referred To Contact Cardiology Diagnoses Acute chest pain Scott Chambers MD [address] [place] [address] [facility] [address] [place] [address] Referral ID Status Reason Start Date Expiration Date Visits Re quested Visits Authorized [id number] Open 05/24/2023 06/24/2024 1 1 [facility] Summary Purpose Family History No Family History Records FoundNo Family History Records FoundNo Family History Records FoundNo Family History Records FoundNo Family History Records Found Advance Directives No Advanced Directives Records FoundLatest Code Status on File Code Status Date Activated Date Inactivated Comments Full Code 05/23/2023 8:13 PM Additional Source Comments INFORMATION SOURCE (unrecogn ized section and content) DATE CREATED AUTHOR AUTHOR'S ORGANIZ ATION 05/01/2022 [facility] DATE CREATED AUTHOR AUTHOR'S ORGANIZ ATION 07/08/2022 [facility] DATE CREATED AUTHOR AUTHOR'S ORGANIZ ATION 08/30/2022 [facility] ([place]) DATE CREATED AUTHOR AUTHOR'S ORGANIZ ATION 05/25/2023 [facility] Care Team (unrecognized sect ion and content) Care Team Personnel Name: GINA HOFF MD Member Role: Primary Care Physician Address: Address: [address] [place] [address] [address] [facility] [place] [address]- Name: Na Saunders Coder Position: HIM: Coders Member Role: HIM: Coders Name: Natividad Flores RN Position: AO RN Member Role: ED RN Name: CORINA Parish Position: AO RN Member Role: ED RN Name: MD CACERES TIMOTHY MD Position: ED Physician Member Role: ED Physician Address: Address: [address] [place] [id number]- Care Team Related Persons Name: MITCHELL ARNOLD Address: [address] [place] [address] Source Comments (unrecognize d section and content) In the event this informatio n is protected by the Federal Confidentiality of Alcohol and Drug Abuse Patient Records regulations: The Federal rules restrict any use of the information to criminally investigate or prosecute any alcohol or drug abuse patient.[facility] Reason for Visit (unrecogniz ed section and content) Reason Comments Chest Pain Shortness of Breath Specialty Diagnoses / Procedures Referred By Brannon t Referred To Contact Diagnoses Acute chest pain Procedures N Referral ID Status Reason Start Date Expiration Date Visits Re quested Visits Authorized [id number] 1 1 Scheduled Active and Recently Administ ered Medications (unrecognized section and content) PRN Medication Order 05/22/2023 05/23/2023 05/24/2023 acetaminophen (TYLENOL) tablet 650 mg 650 mg, Oral, EVERY 4 HOURS PRN, Mild Pain, Fever, Headaches, Starting on Tue05/23/23 at 2007, Until Discontinued, Maximum dose of acetaminophen is 4000 mg from all sources in 24 hours. aluminum-magnesium hydroxide 200-200 MG/5ML suspension 30 mL 30 mL, Oral, EVERY 6 HOURS PRN, Indigestion, Starting on Tue05/23/23 at 2007, Until Discontinued calcium carbonate (TUMS) chewable tablet 1,000 mg 1,000 mg, Oral, EVERY 4 HOURS PRN, Heartburn, Starting on Tue05/23/23 at 2007, Until Discontinued For electrolyte abnormalities subsequent to initial labs (refer to the [facility] Electrolyte Replacement Orders) Other, PRN, For electrolyte abnormalities, Starting on Tue05/23/23 at 2009, Until Discontinued, For Potassium level <=3.9 or Magnesium level <=1.9, please use Order Set #100 to order medications and repeat labs. BE SURE TO CONTINUE PROTOCOL AFTER REPLACEMENT UNTIL LABS NORMALIZE. melatonin tablet 10 mg 10 mg, Oral, NIGHTLY PRN, Sleep, Starting on Tue05/23/23 at 2007, Until Discontinued nitroGLYCERIN (NITROSTAT) 0.4 MG SL tablet 0.4 mg (CANCELED) 0.4 mg, Sublingual, EVERY 5 MIN PRN, Chest pain, Starting on Tue05/23/23 at 1727, Until Tue05/23/23 at 2012, Caution: Do not crush or chew. 173 (Given - Provider: Gunjan Grant RN - Comment: 133/86, HR 79)1743 (Given - Provider: Gunjan Grant RN - Comment: 8/10 pain, 140/81 hr 85) nitroGLYCERIN (NITROSTAT) 0.4 MG SL tablet 0.4 mg 0.4 mg, Sublingual, EVERY 5 MIN PRN, Chest pain, Starting on Tue05/23/23 at 2259, Until Discontinued, Caution: Do not crush or chew. 2255 (Given - Provider: Merly Li LPN - Comment: rated pain 9 out 10)2301 (Given - Provider: Merly Li LPN - Comment: rating pain 9 out of 10) ondansetron hcl (ZOFRAN) injection 4 mg 4 mg, IV Push, EVERY 6 HOURS PRN, Nausea, Vomiting, Starting on Tue05/23/23 at 2007, Until Discontinued, Caution: This medication looks and/or sounds like another medication. 1359 (Given - Provid er: Antoinette Magana RN) Care Teams (unrecognized sec tion and content) FOR RECORDS PERTAINING TO PATIENTS WHO ARE OR HAVE BEEN ENROLLED IN A CHEMICAL DEPENDENCY/SUBSTANCEABUSE PROGRAM, SOME INFORMATION MAY BE OMITTED. This clinical summary was aggregated from multiple sources. Caution should be exercised in using it in the provision of clinical care. This summary normalizes information from multiple sources, and as a consequence, information in this document may materially change the coding, format and clinical context of patient data. In addition, data may be omitted in some cases. CLINICAL DECISIONS SHOULD BE BASED ON THE PRIMARY CLINICAL RECORDS. [employer] provides no warranty or guarantee of the accuracy or completeness of information in this document.
[2023-05-25 15:00] VITALS: BP 123/74; PULSE 70; PULSE 71; RESP 16; RESP 18; O2SAT 97
== END 2023-05-25 15:31 | disposition home or self-care (01) ==
PROVIDERS: Emergency Provider Emergency Medicine; Visit Provider Emergency Medicine
DX: R07.9 Chest pain, unspecified (principal); F64.0 Transsexualism; F17.220 Nicotine dependence, chewing tobacco, uncomplicated; Z86.16 Personal history of COVID-19
CPT/HCPCS: 71045; 80048; 84484; 85025; 93005; 99285